=== PATIENT | male | born 1960 | race Two or more races ===

== ENCOUNTER 2024-12-17 16:03 | Inpatient (IN) | payer MEDICAID, OTHER ==
[~2024-12-17] VITALS: Ht 182.9 cm; Wt 91.8 kg
--- NOTE | 2024-12-17 16:29 | ED.PDOC ---
HPI Comments aaron: Abnormal labs HPI: Poor Historian. Past Medical History: Past Surgical History: REVIEW OF SYSTEMS: CONSTITUTIONAL: Denies acute: fever, diaphoresis, chills, generalized weakness. HEAD: Denies acute: headache, photophobia Eyes: Denies acute: Double vision, vision loss, eye pain, eye discharge. EARS: Denies acute: tinnitus, hearing loss, ear discharge, ear pain, THROAT: Denies acute: sore throat, swelling, difficulty swallowing , pain with swa llowing, change in voice. NECK: Denies acute: neck pain, neck swelling, stiff neck. HEART: Denies acute : palpitations, LUNGS: Denies acute: SOB, wheezing, cough, hemoptysis ABDOMEN: Denies acute: abdominal pain, Nausea, Vomiting, diarrhea, melena , hematemesis, hematochezia SKIN: Denies acute: rash, redness, lesions, itchiness. EXTREMITIES: Denies acute: calf pain, numbness, tingling, weakness, denies pain in extremity. Denies acute: Low back pain. Neuro: Denies acute: focal neurological deficit, motor or sensory focal neurological deficit, tremors, seizure like activity, confusion, dizziness, change in mental status, loss of bowel or bladder function, cauda equina like symptoms. : Denies acute: dysuria, hematuria, flank pain, increase in urinary frequency. PSYCH: Denies acute: hallucination, suicidal ideation, homicidal ideation. PHYSICAL EXAM: General: ----no----acute distress, awake and alert. Head: normocephalic, atraumatic. Neck: supple, trachea is midline, no swelling. Throat: Normal phonation. Eyes:, no erythema, no purulent discharge, no proptosis, no icterus. Heart: regular rate, regular rhythm, no significant murmur appreciated. Lungs: no apparent respiratory distress, Able to speak in full sentences. No wheezing, no rhonchi, no crackles. No stridors Clear to auscultation bilaterally. Abdomen: non tender to palpation, non distended, soft, no guarding, no rebound, + bowel sounds. Neuro: Awake, Alert, oriented to name, self, situation, follows commands GCS=15. Speech is normal. Skin: no petechia, no purpura, no cyanosis, non-pale, not jaundice. Lower extremities: --trace bilateral - Pitting edema no deformity, no focal swelling, no calf TTP. Makes eye contact. moves all four extremities. Face: no apparent facial droop. Ambulating in the ED independently. ED COURSE: Chief Complaint: Chest Pain Time Seen by MD: 16:08 Allergies: Coded Allergies: NO KNOWN ALLERGIES (Unverified , 12/17/24) Information Source: Patient, Spouse X-Ray, Labs, Meds, VS Vital Signs Date Time Temp Pulse Resp B/P (MAP) Pulse Ox O2 Delivery O2 Flow Rate FiO2 12/17/24 16:26 93 I personally scribed for LEA TIRADO DO ([email or web address]) on 12/17/24 at 16:31. Electronically submitted by Radha Lerma [email or web address]). LEA TIRADO DO December 17, 2024 16:29
[2024-12-17 16:50] LABS: Basophils # (auto) 0.1 10 ^3/uL (0-0.2); Basophils % (auto) 0.8 % (0.0-2.0); Eosinophils # (auto) 0.2 10 ^3/uL (0-0.8); Eosinophils % (auto) 2.7 % (0.0-7.0); Hematocrit 46.8 % (41.0-53.0); Hemoglobin 16.2 g/dL (13.5-17.5); Lymphocytes # (auto) 1.3 10 ^3/uL (0.4-5.4); Lymphocytes % (auto) 20.7 % (10.0-50.0); Mean Corpuscular Hemoglobin 32.3 pg (28.0-32.0); Mean Corpuscular Hgb Conc. 34.6 g/dL (32.0-36.0); Mean Corpuscular Volume 93.3 fL (80.0-100.0); Monocytes # (auto) 0.6 10 ^3/uL (0-1.3); Monocytes % (auto) 8.7 % (0.0-12.0); Neutrophils # (auto) 4.3 10 ^3/uL (1.6-8.6); Neutrophils % (auto) 67.1 % (37.0-80.0); Nucleated Red Blood Cells % 0.2 %; Platelet Count (auto) 170 10^3/uL (140-450); Red Blood Cells 5.01 10^6/uL (4.5-5.90); White Blood Cell 6.4 10^3/uL (4.4-10.8)
--- NOTE | 2024-12-17 16:58 | ED.PDOC ---
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 Patient states, he was seen at his PCP office x1week ago and was told to have abnormal labs. Patient reports, new onset of symptoms following his appointment of abdominal pain with associated N/V/D. Patient comments on, currently not taking any prescription medications d/t lack of insurance. Upon arrival to the ED, patient c/o additional symptoms of intermittent left sided chest pain. Patient denies fatigue, weakness, excessive thirst, dysuria, disorientation, palpitations, or shortness of breath. No other symptoms or modifying factors present at this time. Past Medical History: [place], HTN, DM, HLD Past Surgical History: CABG, TONSILLECTOMY REVIEW OF SYSTEMS: CONSTITUTIONAL: Denies acute: fever, diaphoresis, chills, generalized weakness. HEAD: Denies acute: headache, photophobia Eyes: Denies acute: Double vision, vision loss, eye pain, eye discharge. EARS: Denies acute: tinnitus, hearing loss, ear discharge, ear pain, THROAT: Denies acute: sore throat, swelling, difficulty swallowing , pain with swallowing, change in voice. NECK: Denies acute: neck pain, neck swelling, stiff neck. HEART: Denies acute : palpitations, LUNGS: Denies acute: SOB, wheezing, cough, hemoptysis ABDOMEN: Denies acute: abdominal pain, Nausea, Vomiting, diarrhea, melena , hematemesis, hematochezia SKIN: Denies acute: rash, redness, lesions, itchiness. EXTREMITIES: Denies acute: calf pain, numbness, tingling, weakness, denies pain in extremity. Denies acute: Low back pain. Neuro: Denies acute: focal neurological deficit, motor or sensory focal neurological deficit, tremors, seizure like activity, confusion, dizziness, change in mental status, loss of bowel or bladder function, cauda equina like symptoms. : Denies acute: dysuria, hematuria, flank pain, increase in urinary frequency. PSYCH: Denies acute: hallucination, suicidal ideation, homicidal ideation. PHYSICAL EXAM: General: ----no----acute distress, awake and alert. Head: normocephalic, atraumatic. Neck: supple, trachea is midline, no swelling. Throat: Normal phonation. Eyes:, no erythema, no purulent discharge, no proptosis, no icterus. Heart: regular rate, regular rhythm, no significant murmur appreciated. Lungs: no apparent respiratory distress, Able to speak in full sentences. No wheezing, no rhonchi, no crackles. No stridors Clear to auscultation bilaterally. Abdomen: non tender to palpation, non distended, soft, no guarding, no rebound, + bowel sounds. Neuro: Awake, Alert, oriented to name, self, situation, follows commands GCS=15. Speech is normal. Skin: no petechia, no purpura, no cyanosis, non-pale, not jaundice. Lower extremities: --trace bilateral - Pitting edema no deformity, no focal swelling, no calf TTP. Makes eye contact. moves all four extremities. Face: no apparent facial droop. Ambulating in the ED independently. ED COURSE: Chief Complaint: Chest Pain Time Seen by MD: 16:30 Reviewed Notes: Nurses Notes, Medications, Allergies Allergies: Coded Allergies: NO KNOWN ALLERGIES (Unverified , 12/17/24) Information Source: Patient Mode of Arrival: Ambulatory Severity: Moderate Timing: Days Duration: Intermittent Prehospital treatment: None Location: Chest (L) Radiation: Back Onset: At Rest Cardiac Risk Factors: Hyperlipidemia, HTN, Diabetes PE Risk Factors: None History of: [place] Modifying Factors: Nothing Associated Signs and Symptoms: None Was a procedure done? Was a procedure done?: No CP Differential Dx Differential Diagnosis: N/A Differential Diagnosis: Other (Ddx include but not limitied to gastritis, musculoskeletal pain, radiculopathy, atypical chest pain, dissection, aneurysm, ACS, unstable angina, hiatal hernia, GERD, anxiety, costochondritis, PE, pneumothroax, neoplasm, cardiac ischemia, drug abuse, anemia.) X-Ray, Labs, Meds, VS Vital Signs Date Time Temp Pulse Resp B/P (MAP) Pulse Ox O2 Delivery O2 Flow Rate FiO2 12/17/24 18:25 86 18 97 12/17/24 18:25 18 97 Room Air* 0 21 12/17/24 18:23 116/73 12/17/24 17:45 88 16 95 Room Air* 0 21 12/17/24 17:28 86 12/17/24 17:28 97.6 88 16 132/83 (99) 95 97.6 12/17/24 17:21 90 12/17/24 16:26 93 12/17/24 16:10 97.4 99 18 130/84 (99) 92 97.4 Lab Test 12/17/24 17:21 12/17/24 17:15 12/17/24 16:30 12/17/24 16:17 Range/Units POC Glucose 471 *H 70-106 mg/dl Troponin I High Sensitivity 50 58 *H </=54 ng/L White Blood Count 6.4 4.4-10.8 10^3/uL Red Blood Count 5.01 4.5-5.90 10^6/uL Hemoglobin 16.2 13.5-17.5 g/dL Hematocrit 46.8 41.0-53.0 % Mean Corpuscular Volume 93.3 80.0-100.0 fL Mean Corpuscular Hemoglobin 32.3 H 28.0-32.0 pg Mean Corpuscular Hemoglobin Concent 34.6 32.0-36.0 g/dL Red Cell Distribution Width 15.0 H 11.8-14.3 % Platelet Count 170 140-450 10^3/uL Mean Platelet Volume 8.5 6.9-10.8 fL Neutrophils (%) (Auto) 67.1 37.0-80.0 % Lymphocytes (%) (Auto) 20.7 10.0-50.0 % Monocytes (%) (Auto) 8.7 0.0-12.0 % Eosinophils (%) (Auto) 2.7 0.0-7.0 % Basophils (%) (Auto) 0.8 0.0-2.0 % Neutrophils # (Auto) 4.3 1.6-8.6 10 ^3/uL Lymphocytes # (Auto) 1.3 0.4-5.4 10 ^3/uL Monocytes # (Auto) 0.6 0-1.3 10 ^3/uL Eosinophils # (Auto) 0.2 0-0.8 10 ^3/uL Basophils # (Auto) 0.1 0-0.2 10 ^3/uL Nucleated Red Blood Cells 0.2 % Sodium Level 134 L 136-145 mmol/L Potassium Level 5.3 H 3.5-5.1 mmol/L Chloride Level 101 98-107 mmol/L Carbon Dioxide Level 24 20-31 mmol/L Anion Gap 9 5-15 Blood Urea Nitrogen 31 H 9-23 mg/dL Creatinine 1.66 H 0.700-1.30 mg/dL Glomerular Filtration Rate Calc 46 >90 mL/min BUN/Creatinine Ratio 18.7 10.0-20.0 Serum Glucose 436 *H 74-106 mg/dL Lactic Acid Level 1.6 0.4-2.0 mmol/L Calcium Level 9.4 8.7-10.4 mg/dL Magnesium Level 1.6 1.6-2.6 mg/dL Total Bilirubin 0.7 0.2-1.0 mg/dL Aspartate Amino Transferase (AST) 13 13-40 U/L Alanine Aminotransferase (ALT) 12 7-40 U/L Alkaline Phosphatase 86 46-116 U/L B-Type Natriuretic Peptide 547.20 0-100 pg/mL Total Protein 7.1 5.7-8.2 g/dL Albumin 4.2 3.2-4.8 g/dL Lipase 81 H 12-53 U/L Urine Color Light-yellow Yellow Urine Clarity Clear Clear Urine pH 6.5 5.0-9.0 Urine Specific [place] 1.022 1.001-1.035 Urine Protein 2+ H Negative Urine Ketones Negative Negative Urine Blood Negative Negative /uL Urine Nitrite Negative Negative Urine Bilirubin Negative Negative Urine Urobilinogen Normal Negative mg/dL Urine Leukocyte Esterase Negative Negative /uL Urine RBC <1 0 - 3 /hpf Urine Microscopic WBC < 1 0-3 /HPF Urine Squamous Epithelial Cells None seen <5 /hpf Urine Bacteria None seen None Seen /hpf Urine Glucose 4+ H Normal mg/dL Current Medications Medications (Trade) Dose Ordered Sig/Amber Route Start Time Stop Time Status Last Admin Aspirin (Ecotrin Enteric Coated Tablet) 325 mg ONCE ONCE PO 12/17/24 17:15 12/17/24 17:22 DC 12/17/24 17:34 Insulin Human Regular (InsuLIN R) 5 units ONCE ONCE IV 12/17/24 17:15 12/17/24 17:22 DC 12/17/24 17:35 Furosemide (Lasix Injection) 20 mg ONCE ONCE IV 12/17/24 18:15 12/17/24 18:18 DC 12/17/24 18:23 Albuterol (Ventolin Medneb) 2.5 mg ONCE ONCE NEB 12/17/24 18:15 12/17/24 18:18 DC 12/17/24 18:25 Zirconium Oxide (Lokelma) 10 gm ONCE ONCE PO 12/17/24 18:15 12/17/24 18:18 DC 12/17/24 18:24 [place] [address] Ph: [phone] DIAGNOSTIC IMAGING Diagnostic Imaging Report : [id number] Signed PATIENT: RICHELLE AARONNACCT: [id number] UNIT: [id number] : 1960 LOC: ER ROOM / BED: / AGE / SEX: 64 / M ADM STATUS: REG ER SERVICE 1621 ORDERING PHYSICIAN: LEA TIRADO DO PROCEDURE(s): CXRP - CHEST PORTABLE REASON: cp ORDER NUMBER(s): [id number], ACCESSION NUMBER(s): [id number] CHEST RADIOGRAPH Indication: cp Technique: Single frontal view of the chest was obtained Comparison: None FINDINGS: Lines and Tubes: Sternal wire sutures in place. Lungs: Airspace disease right lower lobe. Scarring or atelectasis left lower Pleura: No effusion. No pneumothorax. Cardiomediastinal contours: Unremarkable Bones: No acute osseous abnormality. IMPRESSION: 1. Airspace disease right base questionable fluid level consider CT for further evaluation. 2. Scarring or atelectasis left base. No prior studies for comparison. ATED BY: MARIIA GANNON Jr., DO DICTATED DATE/TIME: 12/17/241718 SIGNED BY: MARIIA GANNON Jr., SIGNED DATE/TIME: 12/17/241718 CC: PATIENT: JOHANA AARON JACCT: [id number] UNIT: [id number] : 1960 LOC: OVERFLOW ROOM / BED: [facility]-ERT / A AGE / SEX: 64 / M ADM STATUS: ADM IN SERVICE 181 ORDERING PHYSICIAN: LEA TIRADO DO PROCEDURE(s): CX2CT - CHEST WITHOUT CONTRAST REASON: abn cxr , cp ORDER NUMBER(s): [id number], ACCESSION NUMBER(s): [id number] Scarring or area of atelectasis in the right upper lung field Procedure: CT CHEST WITHOUT CONTRAST Reason for study/Clinical History: abn cxr , cp Comparison Study: None Exam Date: 12/17/2024 07:07 PM TECHNIQUE: Multidetector CT of the chest was performed from the lung apices to the upper abdomen without the use of intravenous contract. Axial, coronal and sagittal multiplanar reformats were performed. Radiation Dose Information: CT Dose: CTDI volume is 15.81 mGy. Dose-length product is 530.05 mGy*cm The dose indicators for CT are the volume Computed Tomography (CT) Dose Index (CTDIvol) and the Dose Length Product (DLP), and are measured in units of mGy and mGy-cm, respectively. These indicators are not patient dose, but values generated from the CT scanner acquisition factors. The report includes radiation exposure data for exposures received during this examination. FINDINGS: Lower neck: Normal thyroid. Lungs: No focal consolidation, pleural effusion or pneumothorax. Heart/Vascular Structures: Normal heart size. No pericardial effusion. Sternal wire sutures in place Lymph Nodes: No adenopathy Pleura: No pleural effusion or significant pneumothorax. Multiple areas on the left pleural thickening and calcifications. Areas of pleural thickening on the right without calcifications. Musculoskeletal: No acute osseous abnormality. Soft tissues: Normal. Upper abdomen: Limited portions of the upper abdomen are unremarkable. IMPRESSION: 1. Bilateral areas of pleural thickening with pleural calcification on the left. 2. Sternal wire sutures in place. Radiation optimization: All CT scans at this facility use at least one of these dose optimization techniques: automated exposure control mA and/or kV adjustment per patient size (includes targeted exams where dose is matched to cl inical indication) or iterative reconstruction. ATED BY: MARIIA GANNON Jr., DO DICTATED DATE/TIME: 12/17/241958 SIGNED BY: MARIIA GANNON Jr., SIGNED DATE/TIME: 12/17/241958 Time of 1ST Reevaluation: 17:00 Reevaluation 1ST: Unchanged Patient Education/Counseling: Diagnosis, Treatment Family Education/Counseling: No Family Present Comments Patient presented with the above HPI.---chest pain and abnormal labs---workup was initiated. patient was found with the above mentioned diagnosis. the following medications were ordered: please refer to order lists of meds and tests obtained by myself Dr. Tirado. Patient ED course and VS have been stabilized. Patient has been reassessed in the ED and remained in a stable condition. Pertinent incidental findings were discussed with the patient and/or family. Patient/family voices understanding and is agreeable with plan. Patient has been observed in the ED adequate length of time to insure improvement/stability. Escalation of care considered: Consideration of escalation to observation or admission Cardiology was consulted. No STEMI. Patient was ADMITTED to the medicine team for further evaluation and treatment of their presentation. All the reports of any imaging studies that were ordered by myself were reviewed by myself. Critical Care Note Critical Care Time?: Yes (35 min-critical care time only) Departure 1 Departure Time of Disposition: 17:10 Impression: Primary Impression: Chest pain Additional Impressions: Elevated troponin Hyperglycemia Abnormal CT scan Hyperkalemia Disposition: ADMITTED INPATIENT Admit to: Tele Condition: Guarded Additional Instructions: [place] [address] Ph: [phone] DIAGNOSTIC IMAGING Diagnostic Imaging Report : [id number] Signed PATIENT: JOHANA AARON ACCT: [id number] UNIT: [id number] : 1960 LOC: ER ROOM / BED: / AGE / SEX: 64 / M ADM STATUS: REG ER SERVICE 1621 ORDERING PHYSICIAN: LEA TIRADO DO PROCEDURE(s): CXRP - CHEST PORTABLE REASON: cp ORDER NUMBER(s): [id number], ACCESSION NUMBER(s): [id number] CHEST RADIOGRAPH Indication: cp Technique: Single frontal view of the chest was obtained Comparison: None FINDINGS: Lines and Tubes: Sternal wire sutures in place. Lungs: Airspace disease right lower lobe. Scarring or atelectasis left lower Pleura: No effusion. No pneumothorax. Cardiomediastinal contours: Unremarkable Bones: No acute osseous abnormality. IMPRESSION: 1. Airspace disease right base questionable fluid level consider CT for further evaluation. 2. Scarring or atelectasis left base. No prior studies for comparison. ATED BY: MARIIA GANNON Jr., DO DICTATED DATE/TIME: 12/17/241718 SIGNED BY: MARIIA GANNON Jr., SIGNED DATE/TIME: 12/17/241718 CC: Discharged With: Self Heart Score Heart Score: Heart Score Response (Comments) Value History Moderate Suspicious [address]-Deviation 2 Age 45-64 1 Risk Factors 1 or 2 risk factors 1 Troponin 1-2 x's Normal limit 1 Total 6 I personally scribed for LEA TIRADO DO ([email or web address]) on 12/17/24 at 16:58. Electronically submitted by Radha Lerma ([email or web address]). I personally scribed for LEA TIRADO DO ([email or web address]) on 12/17/24 at 17:24. Electronically submitted by Radha Lerma ([email or web address]). I personally scribed for LEA TIRADO DO ([email or web address]) on 12/17/24 at 20:27. Electronically submitted by Pablo Szymanski ([email or web address]). LEA TIRADO DO December 17, 2024 16:58
[2024-12-17 17:08] LABS: Alanine Aminotransferase 12 U/L (7-40); Albumin 4.2 g/dL (3.2-4.8); Alkaline Phosphatase 86 U/L (46-116); Anion Gap 9 (5-15); BUN/Creatinine Ratio 18.7 (10.0-20.0); Calcium 9.4 mg/dL (8.7-10.4); Carbon Dioxide 24 mmol/L (20-31); Total Protein 7.1 g/dL (5.7-8.2)
[2024-12-17 17:09] LABS: Aspartate Aminotransferase 13 U/L (13-40); Bilirubin, Total 0.7 mg/dL (0.2-1.0); Blood Urea Nitrogen 31 mg/dL (9-23); Chloride 101 mmol/L (98-107); Lipase 81 U/L (12-53); Magnesium 1.6 mg/dL (1.6-2.6); Potassium 5.3 mmol/L (3.5-5.1); Sodium 134 mmol/L (136-145)
[2024-12-17 17:10] LABS: Glucose 436 mg/dL (74-106)
--- NOTE | 2024-12-17 17:21 | DVH ---
CHEST RADIOGRAPH Indication: cp Technique: Single frontal view of the chest was obtained Comparison: None FINDINGS: Lines and Tubes: Sternal wire sutures in place. Lungs: Airspace disease right lower lobe. Scarring or atelectasis left lower Pleura: No effusion. No pneumothorax. Cardiomediastinal contours: Unremarkable Bones: No acute osseous abnormality. IMPRESSION: 1. Airspace disease right base questionable fluid level consider CT for further evaluation. 2. Scarring or atelectasis left base. No prior studies for comparison.
[2024-12-17] MEDS: ASPirin-EC 325mg tab PO ONE (17:34)
[2024-12-17 17:35] LABS: Urine Bacteria None Seen /hpf (None Seen)
[2024-12-17] MEDS: InsuLIN REG 1unit/0.01ml Soln (100units/ml) IV ONE (17:35)
[2024-12-17 17:45] VITALS: PULSE 88; RESP 16; O2SAT 95
[2024-12-17 18:08] LABS: Urine Blood Negative /uL (Negative); Urine Clarity Clear (Clear); Urine Color Light-Yellow (Yellow); Urine Protein, UAD 2+ (Negative); Urine Specific Gravity 1.022 (1.001-1.035); Urine Squamous Epithelial Cell None Seen /hpf (<5); Urine Urobilinogen Normal (Negative); Urine WBC < 1 /HPF (0-3); Urine pH 6.5 (5.0-9.0)
[2024-12-17] MEDS: FUROSEMIDE 20 MG/2 ML VIAL IV ONE (18:23)
[2024-12-17] MEDS: SODIUM ZIRCONIUM CYCL 10 GM PAK PO ONE (18:24)
[2024-12-17 18:25] VITALS: PULSE 86; RESP 18; O2SAT 97
[2024-12-17] MEDS: ALBUTEROL SULF 2.5 MG/0.5ML(0.5%) NEB SOLN NEB ONE (18:25)
--- NOTE | 2024-12-17 18:59 | ECG ---
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
[2024-12-17] MEDS ORDERED: DEXTROSE (50%) 50ML SYRG IV PRN (19:00)
[2024-12-17] MEDS ORDERED: ALBUTEROL SULF 2.5 MG/0.5ML(0.5%) NEB SOLN NEB PRN (19:00)
[2024-12-17] MEDS ORDERED: NITROGLYCERIN 0.4 MG SL TAB SL PRN (19:00)
[2024-12-17] MEDS ORDERED: MORPHINE SULFATE INJ 2 MG/ml SYRG IV PRN (19:00)
[2024-12-17] MEDS ORDERED: TEMAZEPAM 15 MG CAP PO PRN (19:00)
--- NOTE | 2024-12-17 19:00 | ECG ---
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
[2024-12-17 19:30] VITALS: PULSE 92; RESP 18; O2SAT 98
[2024-12-17] MEDS: ACCU-CHEK COMFORT CURVE STRIP VI SCH (20:00)
--- NOTE | 2024-12-17 20:01 | DVH ---
Scarring or area of atelectasis in the right upper lung field Procedure: CT CHEST WITHOUT CONTRAST Reason for study/Clinical History: abn cxr , cp Comparison Study: None Exam Date: 12/17/2024 07:07 PM TECHNIQUE: Multidetector CT of the chest was performed from the lung apices to the upper abdomen with out the use of intravenous contract. Axial, coronal and sagittal multiplanar reformats were performed . Radiation Dose Information: CT Dose: CTDI volume is 15.81 mGy. Dose-length product is 530.05 mGy*cm The dose indicators for CT are the volume Computed Tomography (CT) Dose Index (CTDIvol) and the Dose Length Product (DLP), and are measured in units of mGy and mGy-cm, respectively. These indicators are not patient dose, but values generated from the CT scanner acquisition factors. The report includes radiation exposure data for exposures received during this examination. FINDINGS: Lower neck: Normal thyroid. Lungs: No focal consolidation, pleural effusion or pneumothorax. Heart/Vascular Structures: Normal heart size. No pericardial effusion. Sternal wire sutures in place Lymph Nodes: No adenopathy Pleura: No pleural effusion or significant pneumothorax. Multiple areas on the left pleural thickenin g and calcifications. Areas of pleural thickening on the right without calcifications. Musculoskeletal: No acute osseous abnormality. Soft tissues: Normal. Upper abdomen: Limited portions of the upper abdomen are unremarkable. IMPRESSION: 1. Bilateral areas of pleural thickening with pleural calcification on the left. 2. Sternal wire sutures in place. Radiation optimization: All CT scans at this facility use at least one of these dose optimization sweetie hniques: automated exposure control mA and/or kV adjustment per patient size (includes targeted exam s where dose is matched to clinical indication) or iterative reconstruction.
[2024-12-17] MEDS: InsuLIN REG 1unit/0.01ml Soln (100units/ml) SC SCH (20:32)
[2024-12-17] MEDS: ATORVASTATIN 20 MG TAB PO SCH (21:42)
--- NOTE | 2024-12-17 22:56 | DVHHP2 ---
History of Present Illness Reason for Visit: Chest pain History of Present Illness 64-year-old male presents for evaluation of chest pain. The patient was seen by his primary care provider today. Patient reports not taking any of his medications for the past six months due to lack of insurance. Today while at the PCP office patient develop some left-sided chest pain which he states has been ongoing for the past couple of months. Patient was advised to present to the emergency department for further evaluation. Currently denies chest pain or shortness for breath. Past Medical History Dyslipidemia, diabetes mellitus, hypertension, mi Past Surgical History Tonsillectomy, CABG Family History Noncontributory Smoke: No ALCOHOL: none Drugs: None Lives: with Family Review of Systems Review of Systems Review of systems are currently negative otherwise addressed in HPI. Allergies: Coded Allergies: NO KNOWN ALLERGIES (Unverified , 12/17/24) Medications Current Medications Medications Dose Ordered Sig/Amber Route Start Time Stop Time Status Last Admin Dose Admin Aspirin 81 mg DAILY PO 12/18/24 10:00 Atorvastatin Calcium 10 mg HS PO 12/17/24 22:00 12/17/24 21:42 10 MG Furosemide 40 mg DAILY PO 12/18/24 10:00 Albuterol 2.5 mg Q6HPRN PRN NEB 12/17/24 19:00 Diagnostic Test (Pha) 1 strip IQ4HR 12/17/24 20:00 12/17/24 20:00 1 STRIP Insulin Human Regular IQ4HR SC 12/17/24 20:00 12/17/24 20:32 10 UNITS Dextrose 50 ml UD PRN IV 12/17/24 19:00 Temazepam 15 mg QHSP PRN PO 12/17/24 19:00 Ondansetron HCl 4 mg Q4HP PRN IV 12/17/24 19:00 Acetaminophen 650 mg Q6HP PRN PO 12/17/24 19:00 Nitroglycerin 0.4 mg Q5MINP PRN SL 12/17/24 19:00 Morphine Sulfate 2 mg Q30M PRN IV 12/17/24 19:00 Exam Vital Signs Vital Signs Date Time Temp Pulse Resp B/P (MAP) Pulse Ox O2 Delivery O2 Flow Rate FiO2 12/17/24 22:25 89 20 131/71 (91) 12/17/24 20:00 97 12/17/24 19:30 Nasal Cannula* 2 28 12/17/24 19:30 98.1 98.1 Exam Gen: 64-year-old male in no apparent distress. Skin: Warm, dry, normal color and texture, no rash. HEENT: Normocephalic atraumatic, mucous membranes moist and pink. Neck: Cervical and supraclavicular nodes normal without enlargement, trachea is midline, thyroid gland is normal without masses. Pulmonary: Clear to auscultation and percussion bilaterally. Cardiac: Regular rate and rhythm. No murmur Abdomen: Soft, nontender, nondistended, bowel sounds present all 4 quadrants, no guarding, no rigidity, no organomegaly. Extremities: No cyanosis, clubbing, no edema Neuro: Cranial nerves II through XII grossly intact, normal affect and speech, no focal motor deficits. Labs/Xrays ORDERING PHYSICIAN: LEA TIRADO DO PROCEDURE(s): CX2CT - CHEST WITHOUT CONTRAST REASON: abn cxr , cp ORDER NUMBER(s): [id number], ACCESSION NUMBER(s): [id number] Scarring or area of atelectasis in the right upper lung field Procedure: CT CHEST WITHOUT CONTRAST Reason for study/Clinical History: abn cxr , cp Comparison Study: None Exam Date: 12/17/2024 07:07 PM TECHNIQUE: Multidetector CT of the chest was performed from the lung apices to the upper abdomen without the use of intravenous contract. Axial, coronal and sagittal multiplanar reformats were performed. Radiation Dose Information: CT Dose: CTDI volume is 15.81 mGy. Dose-length product is 530.05 mGy*cm The dose indicators for CT are the volume Computed Tomography (CT) Dose Index (CTDIvol) and the Dose Length Product (DLP), and are measured in units of mGy and mGy-cm, respectively. These indicators are not patient dose, but values generated from the CT scanner acquisition factors. The report includes radiation exposure data for exposures received during this examination. FINDINGS: Lower neck: Normal thyroid. Lungs: No focal consolidation, pleural effusion or pneumothorax. Heart/Vascular Structures: Normal heart size. No pericardial effusion. Sternal wire sutures in place Lymph Nodes: No adenopathy Pleura: No pleural effusion or significant pneumothorax. Multiple areas on the left pleural thickening and calcifications. Areas of pleural thickening on the right without calcifications. Musculoskeletal: No acute osseous abnormality. Soft tissues: Normal. Upper abdomen: Limited portions of the upper abdomen are unremarkable. IMPRESSION: 1. Bilateral areas of pleural thickening with pleural calcification on the left. 2. Sternal wire sutures in place. Radiation optimization: All CT scans at this facility use at least one of these dose optimization techniques: automated exposure control mA and/or kV adjustment per patient size (includes targeted exams where dose is matched to clinical indication) or iterative reconstruction. Labs Test 12/17/24 22:16 12/17/24 20:14 12/17/24 19:32 12/17/24 16:30 Range/Units POC Glucose 437 *H 70-106 mg/dl Troponin I High Sensitivity 44 </=54 ng/L White Blood Count 6.4 4.4-10.8 10^3/uL Red Blood Count 5.01 4.5-5.90 10^6/uL Hemoglobin 16.2 13.5-17.5 g/dL Hematocrit 46.8 41.0-53.0 % Mean Corpuscular Volume 93.3 80.0-100.0 fL Mean Corpuscular Hemoglobin 32.3 H 28.0-32.0 pg Mean Corpuscular Hemoglobin Concent 34.6 32.0-36.0 g/dL Red Cell Distribution Width 15.0 H 11.8-14.3 % Platelet Count 170 140-450 10^3/uL Mean Platelet Volume 8.5 6.9-10.8 fL Neutrophils (%) (Auto) 67.1 37.0-80.0 % Lymphocytes (%) (Auto) 20.7 10.0-50.0 % Monocytes (%) (Auto) 8.7 0.0-12.0 % Eosinophils (%) (Auto) 2.7 0.0-7.0 % Basophils (%) (Auto) 0.8 0.0-2.0 % Neutrophils # (Auto) 4.3 1.6-8.6 10 ^3/uL Lymphocytes # (Auto) 1.3 0.4-5.4 10 ^3/uL Monocytes # (Auto) 0.6 0-1.3 10 ^3/uL Eosinophils # (Auto) 0.2 0-0.8 10 ^3/uL Basophils # (Auto) 0.1 0-0.2 10 ^3/uL Nucleated Red Blood Cells 0.2 % Sodium Level 134 L 136-145 mmol/L Chloride Level 101 98-107 mmol/L Carbon Dioxide Level 24 20-31 mmol/L Anion Gap 9 5-15 Blood Urea Nitrogen 31 H 9-23 mg/dL Creatinine 1.66 H 0.700-1.30 mg/dL Glomerular Filtration Rate Calc 46 >90 mL/min BUN/Creatinine Ratio 18.7 10.0-20.0 Serum Glucose 436 *H 74-106 mg/dL Lactic Acid Level 1.6 0.4-2.0 mmol/L Calcium Level 9.4 8.7-10.4 mg/dL Magnesium Level 1.6 1.6-2.6 mg/dL Total Bilirubin 0.7 0.2-1.0 mg/dL Aspartate Amino Transferase (AST) 13 13-40 U/L Alanine Aminotransferase (ALT) 12 7-40 U/L Alkaline Phosphatase 86 46-116 U/L B-Type Natriuretic Peptide 547.20 0-100 pg/mL Total Protein 7.1 5.7-8.2 g/dL Albumin 4.2 3.2-4.8 g/dL Lipase 81 H 12-53 U/L Test 12/17/24 16:17 Range/Units Urine Color Light-yellow Yellow Urine Clarity Clear Clear Urine pH 6.5 5.0-9.0 Urine Specific [place] 1.022 1.001-1.035 Urine Protein 2+ H Negative Urine Ketones Negative Negative Urine Blood Negative Negative /uL Urine Nitrite Negative Negative Urine Bilirubin Negative Negative Urine Urobilinogen Normal Negative mg/dL Urine Leukocyte Esterase Negative Negative /uL Urine RBC <1 0 - 3 /hpf Urine Microscopic WBC < 1 0-3 /HPF Urine Squamous Epithelial Cells None seen <5 /hpf Urine Bacteria None seen None Seen /hpf Urine Glucose 4+ H Normal mg/dL Assessment/Plan Assessment/Plan Assessment Chest pain rule out ACS Elevated troponin downtrending Uncontrolled diabetes mellitus Acute kidney injury Hypertension Hypokalemia Plan Admit the patient to telemetry to the hospitalist Cardiology consultation Echocardiogram pending Resume home medications Continue treatment per orders. Plan discussed with: Patient My Orders Orders - TODD DILLARD AGACNP Procedure Category Date Status Time Aspirin Tablet PHA 12/18/24 In Process 10:00 Atorvastatin (Lipitor) PHA 12/17/24 In Process 22:00 Furosemide Tablet PHA 12/18/24 In Process (Lasix Tablet) 10:00 Albuterol Medneb PHA 12/17/24 In Process (Ventolin Medneb) 19:00 Basic Metabolic Panel LAB 12/18/24 Verified 04:00 Glucose Blood PHA 12/17/24 In Process (Accu-Chek Comfort 20:00 Insulin R (Human) PHA 12/17/24 In Process (Insulin R) 20:00 Dextrose 50% Syringe PHA 12/17/24 In Process 19:00 Admit ADMIT 12/17/24 Transmitted 18:58 Temazepam (Restoril) PHA 12/17/24 In Process 19:00 Ondansetron Hcl PHA 12/17/24 In Process (Zofran) 19:00 Cardiac DIET 12/18/24 Transmitted Diet-2gna,Lofat,Lochol Breakfast Echo 2d Mode Cardiac US 12/17/24 Logged DOP 18:58 Condition: Fair CRYSTAL 12/17/24 In Process 18:58 Acetaminophen Tablet PHA 12/17/24 In Process (Tylenol Tablet) 19:00 Bedrest With Bathroom CRYSTAL 12/17/24 In Process Privileg 18:58 Nitroglycerin PHA 12/17/24 In Process Sublingual (Ntrostat 19:00 Morphine Sulfate PHA 12/17/24 In Process Injection 19:00 Stat Ekg For Chest CRYSTAL 12/17/24 In Process Pain 18:58 Notify Of Changes CRYSTAL 12/17/24 In Process From Base 18:58 [employer] For CRYSTAL 12/17/24 In Process 24 Hours 18:58 Emergency Dysrhythmia CRYSTAL 12/17/24 In Process Protocol 18:58 Rhythm Strips Once CRYSTAL 12/17/24 In Process Every Shift 18:58 Oxygen By Nasal RT 12/17/24 Transmitted Cannula 18:58 Thyroid Stimulating LAB 12/17/24 Logged Hormone 22:48 Hemoglobin A1c LAB 12/17/24 Logged 22:48 Lipid Panel LAB 12/17/24 Logged 22:48 Date of Service: December 17, 2024 Billing Provider: TODD DILLARD Common Visit Codes: [id number] INP/OBS CARE (HIGH) TODD DILLARD December 17, 2024 22:56
[2024-12-17 23:20] LABS: Cholesterol 289 mg/dL (< 200); HDL Cholesterol 61 mg/dL (40-59); LDL Cholesterol 208 mg/dL (< 100); Triglycerides 277 mg/dL (< 150)
[2024-12-18] VITALS (8 sets, daily range): BP systolic 86–134; BP diastolic 58–83; PULSE 78–91; RESP 11–18; TEMP 95.2–98; O2SAT 95–98
--- NOTE | 2024-12-18 05:40 | ECG ---
[facility] Test Date: 2024-12-17 Test Time: 19:22:42 Pat Name: JOHANA OBRIEN Department: ED Room: 0250T Gender: M [employer]: DEMETRIUS : 1960 Requested By: LEA TIRADO Order Number: [id number] Reading MD: Elan Ferrer Measurements Intervals [place] Rate: 93 P: -17 AL: 167 QRS: 115 QRSD: 140 T: 121 QT: 393 QTc: 489 Interpretive Statements Sinus rhythm Right bundle branch block Repol abnrm suggests ischemia, lateral leads Electronically Signed On 12-21-2024 22:08:22 PDT by Elan Ferrer Please click the below link to view image of tracing.
[2024-12-18 06:32] LABS: Calcium 9.3 mg/dL (8.7-10.4); Chloride 102 mmol/L (98-107); Sodium 138 mmol/L (136-145)
[2024-12-18 06:33] LABS: Anion Gap 11 (5-15); Carbon Dioxide 25 mmol/L (20-31)
[2024-12-18 06:38] LABS: BUN/Creatinine Ratio 19.1 (10.0-20.0)
[2024-12-18 06:49] LABS: Blood Urea Nitrogen 29 mg/dL (9-23); Glucose 217 mg/dL (74-106)
[2024-12-18] MEDS: hydrALAZINE HCL 20 MG/ML VL IV PRN (08:52)
[2024-12-18] MEDS: ACETAMINOPHEN 325 MG TAB PO PRN (10:22)
[2024-12-18] MEDS: FUROSEMIDE 40 MG TAB PO SCH (10:23)
[2024-12-18] MEDS: LISINOPRIL 5 MG TAB PO SCH (10:24)
[2024-12-18] MEDS: hydroCHLOROthiazide 25 MG TAB PO SCH (10:24)
[2024-12-18] MEDS: ASPirin 81 mg TAB PO SCH (10:24)
--- NOTE | 2024-12-18 11:19 | DVHCONRES ---
Date Seen: December 18, 2024 Resident Creating Document: CEDRICK HUBER RESIDENT Referring Physician DR TIRADO Reason for Consultation Chest pain History of Present Illness 64-year-old male with past medical history of hypertension, hyperlipidemia, diabetes mellitus type 2, [place] status post CABG in 2012 presented in the ED as he had EKG done in the primary care physician's office on PCP referred him to ER. He mentioned that he has been having left-sided intermittent chest pain on and off for last one year. He also complaint of nausea vomiting and diarrhea for few months. Patient denied shortness of breath on rest but gets shortness of breath on walking 20 ft. Mentioned that he had complaints of swelling in bilateral lower leg for last one year. Described his chest pain as left-sided, pressure-like, sometimes radiating to the back, mainly affected by rest and activity, slightly improved sitting up. patient does not take any medication to get relief of chest pain. He denied any complaints of cough, palpitation, orthopnea, PND. Cardiology was consulted for chest pain. Patient is not mentioning of any active symptoms. Mentioned he gets stress test every year and last stress test was one and a half years ago which was with normal limits according to him. Patient mentioned he has not been taking his medications for last one year because of insurance issues but has been aspirin 81 mg because it is over the counter. Past Medical History described in the HPI Past Surgical History described in the HPI Family History does not remember Social History Quit smoking in 2012, was smoking for 40 years Current alcohol intake, 4-6 shots of whiskey 3-4 days in a week Denied marijuana or any other drug intake Allergies: Coded Allergies: NO KNOWN ALLERGIES (Unverified , 12/17/24) Current Medications Current Medications Medications (Trade) Dose Ordered Sig/Amber Route PRN Reason Start Time Stop Time Status Last Admin Aspirin 81 mg DAILY PO 12/18/24 10:00 12/18/24 10:24 Atorvastatin Calcium (Lipitor) 10 mg HS PO 12/17/24 22:00 12/17/24 21:42 Furosemide (Lasix Tablet) 40 mg DAILY PO 12/18/24 10:00 12/18/24 10:23 Albuterol (Ventolin Medneb) 2.5 mg Q6HPRN PRN NEB SHORTNESS OF BREATH 12/17/24 19:00 Diagnostic Test (Pha) (Accu-Chek Comfort Curve T) 1 strip IQ4HR 12/17/24 20:00 12/18/24 08:51 Insulin Human Regular (InsuLIN R) IQ4HR SC 12/17/24 20:00 12/18/24 08:50 Dextrose 50 ml UD PRN IV Blood Sugar LESS THAN 60 12/17/24 19:00 Temazepam (Restoril) 15 mg QHSP PRN PO FOR INSOMNIA 12/17/24 19:00 Ondansetron HCl (Zofran) 4 mg Q4HP PRN IV NAUSEA / VOMITING 12/17/24 19:00 Acetaminophen (Tylenol Tablet) 650 mg Q6HP PRN PO PAIN SCALE 1-3 OR TEMP>100.4 12/17/24 19:00 12/18/24 10:22 Nitroglycerin (Ntrostat Sublingual) 0.4 mg Q5MINP PRN SL FOR CHEST PAIN 12/17/24 19:00 Morphine Sulfate 2 mg Q30M PRN IV FOR CHEST PAIN 12/17/24 19:00 Lisinopril (Zestril Tablet) 10 mg DAILY PO 12/18/24 10:00 12/18/24 10:24 Hydrochlorothiazide (hydroCHLOROthiazide TABLET) 12.5 mg DAILY PO 12/18/24 10:00 12/18/24 10:24 Hydralazine HCl (Apresoline Injection) 10 mg Q6HP PRN IV SBP>150 12/18/24 08:30 12/18/24 08:52 Vital Signs Vital Signs Date Time Temp Pulse Resp B/P (MAP) Pulse Ox O2 Delivery O2 Flow Rate FiO2 12/18/24 10:24 133/75 12/18/24 07:35 96 Room Air 0.0 12/18/24 07:35 21 12/18/24 06:00 88 13 12/17/24 19:30 98.1 98.1 Labs/Diagnostic Data Labs Test 12/18/24 08:41 12/18/24 05:20 12/17/24 19:32 12/17/24 16:30 Range/Units POC Glucose 207 H 70-106 mg/dl Sodium Level 138 136-145 mmol/L Potassium Level 4.0 3.5-5.1 mmol/L Chloride Level 102 98-107 mmol/L Carbon Dioxide Level 25 20-31 mmol/L Anion Gap 11 5-15 Blood Urea Nitrogen 29 H 9-23 mg/dL Creatinine 1.52 H 0.700-1.30 mg/dL Glomerular Filtration Rate Calc 51 >90 mL/min BUN/Creatinine Ratio 19.1 10.0-20.0 Serum Glucose 217 #H 74-106 mg/dL Calcium Level 9.3 8.7-10.4 mg/dL Troponin I High Sensitivity 44 </=54 ng/L White Blood Count 6.4 4.4-10.8 10^3/uL Red Blood Count 5.01 4.5-5.90 10^6/uL Hemoglobin 16.2 13.5-17.5 g/dL Hematocrit 46.8 41.0-53.0 % Mean Corpuscular Volume 93.3 80.0-100.0 fL Mean Corpuscular Hemoglobin 32.3 H 28.0-32.0 pg Mean Corpuscular Hemoglobin Concent 34.6 32.0-36.0 g/dL Red Cell Distribution Width 15.0 H 11.8-14.3 % Platelet Count 170 140-450 10^3/uL Mean Platelet Volume 8.5 6.9-10.8 fL Neutrophils (%) (Auto) 67.1 37.0-80.0 % Lymphocytes (%) (Auto) 20.7 10.0-50.0 % Monocytes (%) (Auto) 8.7 0.0-12.0 % Eosinophils (%) (Auto) 2.7 0.0-7.0 % Basophils (%) (Auto) 0.8 0.0-2.0 % Neutrophils # (Auto) 4.3 1.6-8.6 10 ^3/uL Lymphocytes # (Auto) 1.3 0.4-5.4 10 ^3/uL Monocytes # (Auto) 0.6 0-1.3 10 ^3/uL Eosinophils # (Auto) 0.2 0-0.8 10 ^3/uL Basophils # (Auto) 0.1 0-0.2 10 ^3/uL Nucleated Red Blood Cells 0.2 % Hemoglobin A1c > 14.0 H <5.7 % A1C Lactic Acid Level 1.6 0.4-2.0 mmol/L Magnesium Level 1.6 1.6-2.6 mg/dL Total Bilirubin 0.7 0.2-1.0 mg/dL Aspartate Amino Transferase (AST) 13 13-40 U/L Alanine Aminotransferase (ALT) 12 7-40 U/L Alkaline Phosphatase 86 46-116 U/L B-Type Natriuretic Peptide 547.20 0-100 pg/mL Total Protein 7.1 5.7-8.2 g/dL Albumin 4.2 3.2-4.8 g/dL Triglycerides Level 277 H < 150 mg/dL Cholesterol Level 289 H < 200 mg/dL LDL Cholesterol 208 H < 100 mg/dL HDL Cholesterol 61 H 40-59 mg/dL Lipase 81 H 12-53 U/L Thyroid Stimulating Hormone (TSH) 2.86 0.55-4.78 uIU/mL Test 12/17/24 16:17 Range/Units Urine Color Light-yellow Yellow Urine Clarity Clear Clear Urine pH 6.5 5.0-9.0 Urine Specific [place] 1.022 1.001-1.035 Urine Protein 2+ H Negative Urine Ketones Negative Negative Urine Blood Negative Negative /uL Urine Nitrite Negative Negative Urine Bilirubin Negative Negative Urine Urobilinogen Normal Negative mg/dL Urine Leukocyte Esterase Negative Negative /uL Urine RBC <1 0 - 3 /hpf Urine Microscopic WBC < 1 0-3 /HPF Urine Squamous Epithelial Cells None seen <5 /hpf Urine Bacteria None seen None Seen /hpf Urine Glucose 4+ H Normal mg/dL Plan/Recommendation Assessment and Plan # chest pain, cardiac type, rule out ACS -EKG shows right bundle-branch block -troponins 58, 50, 44 #Elevated trops, likely NSTEMI II due to CHF exacerbation -downtrending #? Acute on ? Chronic heart failure -elevated BNP, 47.20 # history of [place] status post CABG -on aspirin and statins #Hypertension # diabetes mellitus # Hyperlipidemia Plan Continue aspirin 81 mg and atorvastatin Echocardiogram, awaiting results Continue antihypertensive, thiazide, lisinopril Considering patient's high risk factors, we will schedule the patient for history and Cardiolite stress test, if stress test comes positive, we will schedule the patient for left heart catheterization Case discussion with Dr. Ferrer Plan discussed with: CEDRICK Tang RESIDENT December 18, 2024 11:19
--- NOTE | 2024-12-18 11:43 | DVHPN2 ---
Subjective Patient states intermittent substernal chest pressure, rated a 4/10. Also reports having periods of dyspnea, nausea. Reviewed: Care Plan, H&P, Labs Changes from previous H/P or p: No Changes General: Per HPI Objective Vitals Vital Signs Date Time Temp Pulse Resp B/P (MAP) Pulse Ox O2 Delivery O2 Flow Rate FiO2 12/18/24 11:27 97.7 91 18 134/82 (99) 97 97.7 12/18/24 07:35 Room Air 0.0 12/18/24 07:35 21 General Appearance: Alert, Oriented X3, Cooperative, No acute distress HEENT: Atraumatic, PERRLA Lungs: Clear to auscultation, Normal air movement Cardiovascular: Regular rate, Normal S1, Normal S2 Skin: Dry, Intact Psych/Mental Status: Mental status NL, Mood NL Medications Current Medications Medications Dose Ordered Sig/Amber Route Start Time Stop Time Status Last Admin Dose Admin Aspirin 81 mg DAILY PO 12/18/24 10:00 12/18/24 10:24 81 MG Albuterol 2.5 mg Q6HPRN PRN NEB 12/17/24 19:00 Diagnostic Test (Pha) 1 strip IQ4HR 12/17/24 20:00 12/18/24 08:51 1 STRIP Insulin Human Regular IQ4HR SC 12/17/24 20:00 12/18/24 08:50 4 UNITS Dextrose 50 ml UD PRN IV 12/17/24 19:00 Temazepam 15 mg QHSP PRN PO 12/17/24 19:00 Ondansetron HCl 4 mg Q4HP PRN IV 12/17/24 19:00 Acetaminophen 650 mg Q6HP PRN PO 12/17/24 19:00 12/18/24 10:22 650 MG Nitroglycerin 0.4 mg Q5MINP PRN SL 12/17/24 19:00 Morphine Sulfate 2 mg Q30M PRN IV 12/17/24 19:00 Hydrochlorothiazide 12.5 mg DAILY PO 12/18/24 10:00 12/18/24 10:24 12.5 MG Hydralazine HCl 10 mg Q6HP PRN IV 12/18/24 08:30 12/18/24 08:52 10 MG Atorvastatin Calcium 40 mg HS PO 12/18/24 22:00 UNV Metoprolol Succinate 25 mg DAILY PO 12/18/24 11:45 UNV Laboratory Results Laboratory Tests 12/17/24 16:30 12/18/24 05:20 Chemistry Test 12/17/24 16:30 12/18/24 05:20 Albumin 4.2 g/dL (3.2-4.8) Calcium Level 9.4 mg/dL (8.7-10.4) 9.3 mg/dL (8.7-10.4) Magnesium Level 1.6 mg/dL (1.6-2.6) Total Protein 7.1 g/dL (5.7-8.2) Lipid panel Test 12/17/24 16:30 Cholesterol Level 289 mg/dL (< 200) H HDL Cholesterol 61 mg/dL (40-59) H Lipase 81 U/L (12-53) H Triglycerides Level 277 mg/dL (< 150) H Cardiac Markers Test 12/17/24 16:30 B-Type Natriuretic Peptide 547.20 pg/mL (0-100) LFT Test 12/17/24 16:30 Alanine Aminotransferase (ALT) 12 U/L (7-40) Alkaline Phosphatase 86 U/L (46-116) Aspartate Amino Transferase (AST) 13 U/L (13-40) Total Bilirubin 0.7 mg/dL (0.2-1.0) HgA1c, TSH Test 12/17/24 16:30 Hemoglobin A1c > 14.0 % A1C (<5.7) H Thyroid Stimulating Hormone (TSH) 2.86 uIU/mL (0.55-4.78) Urinalysis Test 12/17/24 16:17 Urine Color Light-yellow (Yellow) Urine Clarity Clear (Clear) Urine pH 6.5 (5.0-9.0) Urine Specific [place] 1.022 (1.001-1.035) Urine Protein 2+ (Negative) H Urine Ketones Negative (Negative) Urine Blood Negative /uL (Negative) Urine Nitrite Negative (Negative) Urine Bilirubin Negative (Negative) Urine Urobilinogen Normal mg/dL (Negative) Urine Leukocyte Esterase Negative /uL (Negative) Urine RBC <1 /hpf (0 - 3) Urine Microscopic WBC < 1 /HPF (0-3) Urine Squamous Epithelial Cells None seen /hpf (<5) Urine Bacteria None seen /hpf (None Seen) Urine Glucose 4+ mg/dL (Normal) H Labs and/or images reviewed: Labs reviewed by me, Image(s) reviewed by me Assessment/Plan Assessment/Plan Impression: -hypertensive crisis -history of CAD, rule out ACS -diabetes mellitus -dyslipidemia -alcoholism -medication noncompliance -hyperkalemia -probable CKD stage IIIA Plan: -long discussion made with the patient regarding his medical history. He has been off medications for the past six months for diabetes, high blood pressure, dyslipidemia. He reports having an EKG done yearly for his previous jobs. Reports having CABG performed in 2012, with no further ischemia workup since. Reports having some chest pain, cough, nausea. -stop JIA inhibitor given hyperkalemia -start Toprol-XL 25 mg p.o. daily -echocardiogram and cardiac stress test pending. -cardiology consultation: Discussed case -increase atorvastatin 40 mg p.o. q.h.s. -regular insulin sliding scale -hold diuretics given clear CT scan and probable hyperosmolar diuresis from uncontrolled blood sugars Total time spent with patient discussing and formulating plan of care: 35 minutes. This medical document was created using an electronic medical record system with [employer] dictation system. Although this document has been carefully reviewed, there may still be some phonetic and typographical errors. These areas are purely typographical due to imperfections of the software programs, and do not reflect any compromise in the patient's medical care. Plan discussed with: Patient, Other (RN) My Orders Orders - SHAKEEL POWELL NP Procedure Category Date Status Time Atorvastatin (Lipitor) PHA 12/18/24 Transmitted 22:00 Metoprolol Xl PHA 12/18/24 Transmitted Succinate (Toprol Xl) 11:45 Communication Order ORDERS 12/18/24 Transmitted 11:34 Date of Service: December 18, 2024 Billing Provider: SHAKEEL POWELL NP Common Visit Codes: [id number] INP/OBS CARE(HIGH) SHAKEEL POWELL NP December 18, 2024 11:43
[2024-12-18] MEDS: METOPROLOL SUCCINATE XL 50 MG TAB PO SCH (12:54)
[2024-12-18] MEDS: ATORVASTATIN 20 MG TAB PO SCH (21:23)
[2024-12-19] VITALS (11 sets, daily range): BP systolic 80–139; BP diastolic 51–96; PULSE 8–89; RESP 17–19; TEMP 97–98.9; O2SAT 93–97
[2024-12-19] MEDS: MIDODRINE HCL 10 MG TAB PO SCH (06:00)
[2024-12-19] MEDS: REGADENOSON 0.4 MG/5 ML SYRG IV ONE ×2 (10:08)
[2024-12-19] MEDS: FOLIC ACID 1 MG TAB PO SCH (11:10)
[2024-12-19] MEDS: THIAMINE HCL 100 MG TAB PO SCH (11:10)
--- NOTE | 2024-12-19 14:14 | DVHPN2 ---
Subjective Denies any chest pain today Reviewed: Care Plan, H&P, Labs Changes from previous H/P or p: No Changes General: Per HPI Objective Vitals Vital Signs Date Time Temp Pulse Resp B/P (MAP) Pulse Ox O2 Delivery O2 Flow Rate FiO2 12/19/24 13:00 98.0 88 17 98/71 (80) 95 98.0 12/19/24 08:00 Room Air* 0 21 Intake/Output Intake and Output 12/19/24 07:00 Intake Total 260 ml Balance 260 ml Intake Oral 260 ml # Voids 4 General Appearance: Alert, Oriented X3, Cooperative, No acute distress HEENT: Atraumatic, PERRLA Lungs: Clear to auscultation, Normal air movement Cardiovascular: Regular rate, Normal S1, Normal S2 Skin: Dry, Intact Psych/Mental Status: Mental status NL, Mood NL Medications Current Medications Medications Dose Ordered Sig/Amber Route Start Time Stop Time Status Last Admin Dose Admin Aspirin 81 mg DAILY PO 12/18/24 10:00 12/19/24 11:10 81 MG Albuterol 2.5 mg Q6HPRN PRN NEB 12/17/24 19:00 Diagnostic Test (Pha) 1 strip IQ4HR 12/17/24 20:00 12/19/24 11:37 1 STRIP Insulin Human Regular IQ4HR SC 12/17/24 20:00 12/19/24 11:38 6 UNITS Dextrose 50 ml UD PRN IV 12/17/24 19:00 Temazepam 15 mg QHSP PRN PO 12/17/24 19:00 Ondansetron HCl 4 mg Q4HP PRN IV 12/17/24 19:00 Acetaminophen 650 mg Q6HP PRN PO 12/17/24 19:00 12/18/24 10:22 650 MG Nitroglycerin 0.4 mg Q5MINP PRN SL 12/17/24 19:00 Morphine Sulfate 2 mg Q30M PRN IV 12/17/24 19:00 Hydrochlorothiazide 12.5 mg DAILY PO 12/18/24 10:00 12/19/24 11:11 12.5 MG Hydralazine HCl 10 mg Q6HP PRN IV 12/18/24 08:30 12/18/24 08:52 10 MG Atorvastatin Calcium 40 mg HS PO 12/18/24 22:00 12/18/24 21:23 40 MG Metoprolol Succinate 25 mg DAILY PO 12/18/24 11:45 12/19/24 11:10 25 MG Thiamine HCl 100 mg DAILY PO 12/19/24 10:00 12/19/24 11:10 100 MG Folic Acid 1 mg DAILY PO 12/19/24 10:00 12/19/24 11:10 1 MG Laboratory Results Laboratory Tests 12/17/24 16:30 12/18/24 05:20 Urinalysis Test 12/17/24 16:17 Urine Color Light-yellow (Yellow) Urine Clarity Clear (Clear) Urine pH 6.5 (5.0-9.0) Urine Specific [place] 1.022 (1.001-1.035) Urine Protein 2+ (Negative) H Urine Ketones Negative (Negative) Urine Blood Negative /uL (Negative) Urine Nitrite Negative (Negative) Urine Bilirubin Negative (Negative) Urine Urobilinogen Normal mg/dL (Negative) Urine Leukocyte Esterase Negative /uL (Negative) Urine RBC <1 /hpf (0 - 3) Urine Microscopic WBC < 1 /HPF (0-3) Urine Squamous Epithelial Cells None seen /hpf (<5) Urine Bacteria None seen /hpf (None Seen) Urine Glucose 4+ mg/dL (Normal) H Labs and/or images reviewed: Labs reviewed by me, Image(s) reviewed by me Assessment/Plan Assessment/Plan Impression: -hypertensive crisis -history of CAD, rule out ACS -diabetes mellitus -dyslipidemia -alcoholism -medication noncompliance -hyperkalemia -probable CKD stage IIIA Plan: Events: Patient had stress test, results pending. -stop JIA inhibitor given hyperkalemia -start Toprol-XL 25 mg p.o. daily -echocardiogram and cardiac stress test pending. -cardiology consultation: Discussed case -increase atorvastatin 40 mg p.o. q.h.s. -regular insulin sliding scale -hold diuretics given clear CT scan and probable hyperosmolar diuresis from uncontrolled blood sugars Total time spent with patient discussing and formulating plan of care: 35 minutes. This medical document was created using an electronic medical record system with [employer] system. Although this document has been carefully reviewed, there may still be some phonetic and typographical errors. These areas are purely typographical due to imperfections of the software programs, and do not reflect any compromise in the patient's medical care. Plan discussed with: Patient, Other (RN) My Orders Orders - SHAKEEL POWELL NP Procedure Category Date Status Time Cardiac DIET 12/18/24 Transmitted Diet-2gna,Lofat,Lochol Dinner Date of Service: December 19, 2024 Billing Provider: SHAKEEL POWELL NP Common Visit Codes: [id number] INP/OBS CARE(HIGH) SHAKEEL POWELL NP December 19, 2024 14:14
--- NOTE | 2024-12-19 17:52 | DVHSR ---
APPROVED REPORT Exam: Nuclear Stress Test Indication: Chest pain BMI: 0 Medical History Medical History: IA, CP, HTN, DM, HLD, CABG Allergies: No known drug allergies Stress Test Details Stress Test: Pharmacologic stress testing performed using 0.4 mg of regadenoson per 5 mL given IV ov er 10 seconds. HR Resting HR: 89 bpmMax Heart Rate (APMHR): 156.742564 bpm Max HR Achieved: 103 bpmTarget HR (85% APMHR): 132.422976 bpm % of APMHR: 66.03 Recovery HR: 95 bpm BP Resting BP: 108/59 mmHg Recovery BP: 122/73 mmHg ECG Resting ECG: Sinus Rhythm Clinical Reason for Termination: Completed protocol Nurse Comments Recieved pt. from [employer]. A/Ox4 on RA. Connected to ekg monitor, VS stable. PIV flushes well. Reviewed POC. Pt. verbalized understanding of procedure including risks and side ef fects, agrees for stress testing. Lexiscan stress test performed per protocol. [employer] tech administered Cardiolite. Pt. tolerated well . Pt. stable, no change on exam. VS returned to baseline. Transferred to [employer] via wheelchair w/ te ch. Stress ECG Conclusion signficant inferolateral wall ischemia noted lvef 27% severe dilated LV ecg shows SR RBBB NM EXAM: Myocardial Perfusion REST/STRESS Imaging Protocol: Rest Tc-99m/Stress Tc-99m 1 day Resting Data Rest SPECT myocardial perfusion imaging was performed in supine position 60 minutes following the int ravenous injection of 8.0 mCi of Tc-99m Sestamibi. Time of rest injection: 08:09 Date: 12/19/2024 Time of rest imagin:09 Date: 12/19/2024 Administration Route: IV Administration Site: Left Arm Pharmacologic Stress Pharmacologic stress test was performed by injecting Regadenoson 0.4 mg IV push followed by the intra venous injection of 33.7 mCi of Tc-99m Sestamibi. Time of stress injection: 10:10 Date: 12/19/2024 Time of stress imagin:55 Date: 12/19/2024 Administration Route: IV Administration Site: Left Arm Gated Stress SPECT was performed 45 minutes after stress injection. The images were gated to evaluate regional wall motion and calculate left ventricular ejection fracti on. Stress only was performed in the Supine position. Nuclear Conclusion Nuclear Findings: positive for ischemia signficant inferolateral wall ischemia noted lvef 27% severe dilated LV ecg shows SR RBBB
--- NOTE | 2024-12-19 18:57 | DVHPN2 ---
Progress Note Date Seen: December 19, 2024 Resident Creating Document: CEDRICK HUBER RESIDENT Medical Necessity Reason Pt with a Central, PICC or Fol: No Subjective Review of Systems History of Present Illness 64-year-old male with past medical history of hypertension, hyperlipidemia, diabetes mellitus type 2, MD status post CABG in 2012 presented in the ED as he had EKG done in the primary care physician's office on PCP referred him to ER. He mentioned that he has been having left-sided intermittent chest pain on and off for last one year. He also complaint of nausea vomiting and diarrhea for few months. Patient denied shortness of breath on rest but gets shortness of breath on walking 20 ft. Mentioned that he had complaints of swelling in bilateral lower leg for last one year. Described his chest pain as left-sided, pressure-like, sometimes radiating to the back, mainly affected by rest and activity, slightly improved sitting up. patient does not take any medication to get relief of chest pain. He denied any complaints of cough, palpitation, orthopnea, PND. Cardiology was consulted for chest pain. Patient is not mentioning of any active symptoms. Mentioned he gets stress test every year and last stress test was one and a half years ago which was with normal limits according to him. Patient mentioned he has not been taking his medications for last one year because of insurance issues but has been aspirin 81 mg because it is over the counter. Past Medical History described in the HPI Past Surgical History described in the HPI Family History does not remember Social History Quit smoking in 2012, was smoking for 40 years Current alcohol intake, 4-6 shots of whiskey 3-4 days in a week Denied marijuana or any other drug intake Interval events mentioned no chest pain today had Stress test done today Objective vital signs Vital Sign Date Time Temp Pulse Resp B/P (MAP) Pulse Ox O2 Delivery O2 Flow Rate FiO2 12/19/24 17:20 99/77 (84) 12/19/24 17:00 98.4 81 17 93 98.4 12/19/24 08:00 Room Air* 0 21 Total Intake and Output 12/18/24 12/18/24 12/19/24 15:00 23:00 07:00 Intake Total 260 ml Balance 260 ml medications Current Medications Medications Dose Ordered Sig/Amber Route Start Time Stop Time Status Last Admin Dose Admin Aspirin 81 mg DAILY PO 12/18/24 10:00 12/19/24 11:10 81 MG Albuterol 2.5 mg Q6HPRN PRN NEB 12/17/24 19:00 Diagnostic Test (Pha) 1 strip IQ4HR 12/17/24 20:00 12/19/24 16:00 1 STRIP Insulin Human Regular IQ4HR SC 12/17/24 20:00 12/19/24 16:44 10 UNITS Dextrose 50 ml UD PRN IV 12/17/24 19:00 Temazepam 15 mg QHSP PRN PO 12/17/24 19:00 Ondansetron HCl 4 mg Q4HP PRN IV 12/17/24 19:00 Acetaminophen 650 mg Q6HP PRN PO 12/17/24 19:00 12/18/24 10:22 650 MG Nitroglycerin 0.4 mg Q5MINP PRN SL 12/17/24 19:00 Morphine Sulfate 2 mg Q30M PRN IV 12/17/24 19:00 Hydrochlorothiazide 12.5 mg DAILY PO 12/18/24 10:00 Hold 12/19/24 11:11 12.5 MG Hydralazine HCl 10 mg Q6HP PRN IV 12/18/24 08:30 12/18/24 08:52 10 MG Atorvastatin Calcium 40 mg HS PO 12/18/24 22:00 12/18/24 21:23 40 MG Metoprolol Succinate 25 mg DAILY PO 12/18/24 11:45 Hold 12/19/24 11:10 25 MG Thiamine HCl 100 mg DAILY PO 12/19/24 10:00 12/19/24 11:10 100 MG Folic Acid 1 mg DAILY PO 12/19/24 10:00 12/19/24 11:10 1 MG Examination Examination General Appearance: Alert, Oriented X3, Cooperative, No acute distress HEENT: EOMI Respiratory: Clear to auscultation, Normal air movement Cardiovascular: Regular rate, Normal S1, Normal S2 Abdominal: Normal bowel sounds Extremities: No cyanosis, No edema, Normal pulses, No tenderness/swelling Skin: No rashes, No breakdown Neuro: Normal gait, Normal speech, Strength at 5/5 X4 ext, Normal tone, Sensation intact, Cranial nerves 3-12 NL, Reflexes 2+ Psych/Mental Status: Mental status NL, Mood NL laboratory and microbiology Laboratory Tests 12/18/24 05:20 12/17/24 16:30 Test 12/18/24 05:20 Range/Units Serum Glucose 217 #H 74-106 mg/dL Labs and/or images reviewed: Labs reviewed by me, Image(s) reviewed by me Problem List/Assessment/Plan Problem List/Assessment/Plan Assessment and Plan # chest pain, cardiac type, rule out ACS -EKG shows right bundle-branch block -troponins 58, 50, 44 stress test shows Nuclear Findings: positive for ischemia signficant inferolateral wall ischemia noted lvef 27% severe dilated LV ecg shows SR RBBB #Elevated trops, likely NSTEMI II due to CHF exacerbation -downtrending #? Acute on ? Chronic heart failure -elevated BNP, 47.20 # history of MD status post CABG -on aspirin and statins #Hypertension # diabetes mellitus # Hyperlipidemia Plan Continue aspirin 81 mg and atorvastatin Echocardiogram, awaiting results Continue antihypertensive, thiazide, lisinopril will schedule the patient for [facility] on sunday Case discussion with Dr. Winters Plan discussed with: Patient, Other My Orders My Orders Orders - CEDRICK HUBER Procedure Category Date Status Time Cardiolite Multiple NM 12/19/24 Resulted 08:59 CEDRICK HUBER December 19, 2024 18:57
[2024-12-20] VITALS (12 sets, daily range): BP systolic 93–146; BP diastolic 59–95; PULSE 67–104; RESP 18–20; TEMP 97–98.3; O2SAT 93–98
--- NOTE | 2024-12-20 12:36 | DVHPN2 ---
[facility] 12/20/24 1236: Consult Progress Note Subjective Other Systems: Patient in normal sinus rhythm on laboratory monitor Denies any cardiac symptoms at time of assessment Patient angry at time of assessment because he did not get a breakfast tray. Objective vital signs Vital Sign Date Time Temp Pulse Resp B/P (MAP) Pulse Ox O2 Delivery O2 Flow Rate FiO2 12/20/24 09:20 93 Room Air* 0 21 12/20/24 09:00 97.2 86 18 106/73 (84) 97.2 Total Intake and Output 12/19/24 12/19/24 12/20/24 15:00 23:00 07:00 Intake Total 250 ml 400 ml Balance 250 ml 400 ml medications Current Medications Medications Dose Ordered Sig/Amber Route Start Time Stop Time Status Last Admin Dose Admin Aspirin 81 mg DAILY PO 12/18/24 10:00 12/20/24 09:33 81 MG Albuterol 2.5 mg Q6HPRN PRN NEB 12/17/24 19:00 Diagnostic Test (Pha) 1 strip IQ4HR 12/17/24 20:00 12/20/24 11:46 1 STRIP Insulin Human Regular IQ4HR SC 12/17/24 20:00 12/20/24 11:46 8 UNITS Dextrose 50 ml UD PRN IV 12/17/24 19:00 Temazepam 15 mg QHSP PRN PO 12/17/24 19:00 Ondansetron HCl 4 mg Q4HP PRN IV 12/17/24 19:00 Acetaminophen 650 mg Q6HP PRN PO 12/17/24 19:00 12/18/24 10:22 650 MG Nitroglycerin 0.4 mg Q5MINP PRN SL 12/17/24 19:00 Morphine Sulfate 2 mg Q30M PRN IV 12/17/24 19:00 Hydrochlorothiazide 12.5 mg DAILY PO 12/18/24 10:00 Hold 12/19/24 11:11 12.5 MG Hydralazine HCl 10 mg Q6HP PRN IV 12/18/24 08:30 12/18/24 08:52 10 MG Atorvastatin Calcium 40 mg HS PO 12/18/24 22:00 12/19/24 21:32 40 MG Metoprolol Succinate 25 mg DAILY PO 12/18/24 11:45 Hold 12/19/24 11:10 25 MG Thiamine HCl 100 mg DAILY PO 12/19/24 10:00 12/20/24 09:33 100 MG Folic Acid 1 mg DAILY PO 12/19/24 10:00 12/20/24 09:33 1 MG Examination: GENERAL:Normal, LUNGS:Normal, CVS:Normal, NEURO:Normal laboratory and microbiology Laboratory Tests 12/18/24 05:20 12/17/24 16:30 Test 12/18/24 05:20 Range/Units Serum Glucose 217 #H 74-106 mg/dL Problem List/Assessment/Plan Problem List/Assessment/Plan Chest pain, rule out aggressive coronary artery disease Rule out structural heart disease Coronary artery disease status post triple vessel CABG Hypertension Hyperlipidemia Type 2 diabetes mellitus We will continue with following plan/recommendations (Dr. Sepulveda): Case discussed with . The patient underwent a nuclear stress test which was found to be positive for ischemia. Given these findings, the patient was offered a coronary angiogram with left heart catheterization for further evaluation. The procedure was discussed with the patient in full detail including risks and benefits. Risks include but are not limited to bleeding, contrast-induced nephropathy, stroke, and even . The patient understands and is agreeable to undergo the procedure. We will schedule the patient at soonest availability on 12/22/24. In the meantime, continue with medical management. Continue single antiplatelet therapy and lipid-lowering agent. Patient currently off antihypertensives given hypotension. Continue with close cardiac surveillance. Thank you for allowing us to care for this patient. Please call with any questions or concerns. This medical document was created using an electronic medical record system with voice recognition software and computerized dictation system. Although this document has been carefully reviewed, there might still be some phonetic and typographical errors. Occasional wrong-word or ``sound-alike substitutions may have occurred due to the inherent limitations of voice recognition software. These areas are purely typographical due to imperfections of the software programs and do not reflect any compromise in the patient's medical care. Please read the chart carefully and recognize, using context, where these substitutions have occurred. Plan discussed with: Patient Date of Service: December 20, 2024 Billing Provider: CEFERINO ELIZALDE Common Visit Codes: [id number] INP/OBS CARE(HIGH) PATT SEPULVEDA MD 12/20/24 1408: Consult Progress Note Problem List/Assessment/Plan Problem List/Assessment/Plan totall non compliant pt, heavy etoh abuse, severe chf, high likelihood for graft failure, unpleasant individual, high risk pt , cath sunday CEFERINO ELIZALDE December 20, 2024 12:36 PATT SEPULVEDA MD December 20, 2024 14:08
--- NOTE | 2024-12-20 12:41 | DVHPN2 ---
Subjective Denies any chest pain today Reviewed: Care Plan, H&P, Labs Changes from previous H/P or p: No Changes General: Per HPI Objective Vitals Vital Signs Date Time Temp Pulse Resp B/P (MAP) Pulse Ox O2 Delivery O2 Flow Rate FiO2 12/20/24 09:20 93 Room Air* 0 21 12/20/24 09:00 97.2 86 18 106/73 (84) 97.2 Intake/Output Intake and Output 12/20/24 07:00 Intake Total 650 ml Balance 650 ml Intake Oral 650 ml # Voids 5 General Appearance: Alert, Oriented X3, Cooperative, No acute distress HEENT: Atraumatic, PERRLA Lungs: Clear to auscultation, Normal air movement Cardiovascular: Regular rate, Normal S1, Normal S2 Skin: Dry, Intact Psych/Mental Status: Mental status NL, Mood NL Medications Current Medications Medications Dose Ordered Sig/Amber Route Start Time Stop Time Status Last Admin Dose Admin Aspirin 81 mg DAILY PO 12/18/24 10:00 12/20/24 09:33 81 MG Albuterol 2.5 mg Q6HPRN PRN NEB 12/17/24 19:00 Diagnostic Test (Pha) 1 strip IQ4HR 12/17/24 20:00 12/20/24 11:46 1 STRIP Insulin Human Regular IQ4HR SC 12/17/24 20:00 12/20/24 11:46 8 UNITS Dextrose 50 ml UD PRN IV 12/17/24 19:00 Temazepam 15 mg QHSP PRN PO 12/17/24 19:00 Ondansetron HCl 4 mg Q4HP PRN IV 12/17/24 19:00 Acetaminophen 650 mg Q6HP PRN PO 12/17/24 19:00 12/18/24 10:22 650 MG Nitroglycerin 0.4 mg Q5MINP PRN SL 12/17/24 19:00 Morphine Sulfate 2 mg Q30M PRN IV 12/17/24 19:00 Hydrochlorothiazide 12.5 mg DAILY PO 12/18/24 10:00 Hold 12/19/24 11:11 12.5 MG Hydralazine HCl 10 mg Q6HP PRN IV 12/18/24 08:30 12/18/24 08:52 10 MG Atorvastatin Calcium 40 mg HS PO 12/18/24 22:00 12/19/24 21:32 40 MG Metoprolol Succinate 25 mg DAILY PO 12/18/24 11:45 Hold 12/19/24 11:10 25 MG Thiamine HCl 100 mg DAILY PO 12/19/24 10:00 12/20/24 09:33 100 MG Folic Acid 1 mg DAILY PO 12/19/24 10:00 12/20/24 09:33 1 MG Laboratory Results Laboratory Tests 12/17/24 16:30 12/18/24 05:20 Urinalysis Test 12/17/24 16:17 Urine Color Light-yellow (Yellow) Urine Clarity Clear (Clear) Urine pH 6.5 (5.0-9.0) Urine Specific [place] 1.022 (1.001-1.035) Urine Protein 2+ (Negative) H Urine Ketones Negative (Negative) Urine Blood Negative /uL (Negative) Urine Nitrite Negative (Negative) Urine Bilirubin Negative (Negative) Urine Urobilinogen Normal mg/dL (Negative) Urine Leukocyte Esterase Negative /uL (Negative) Urine RBC <1 /hpf (0 - 3) Urine Microscopic WBC < 1 /HPF (0-3) Urine Squamous Epithelial Cells None seen /hpf (<5) Urine Bacteria None seen /hpf (None Seen) Urine Glucose 4+ mg/dL (Normal) H Labs and/or images reviewed: Labs reviewed by me, Image(s) reviewed by me Assessment/Plan Assessment/Plan Impression: -hypertensive crisis -history of CAD, rule out ACS -diabetes mellitus -dyslipidemia -alcoholism -medication noncompliance -hyperkalemia -probable CKD stage IIIA Plan: Events: Patient with positive stress test with depressed ejection fraction. Discussed with the patient. Plans for left heart catheterization this Sunday. Patient in agreement -stop JIA inhibitor given hyperkalemia -Continue Toprol-XL 25 mg p.o. daily. Stop hydrochlorothiazide and given low blood pressure -Echocardiogram pending -cardiology consultation: Discussed case -increase atorvastatin 40 mg p.o. q.h.s. -regular insulin sliding scale -repeat labs in a.m. Total time spent with patient discussing and formulating plan of care: 35 minutes. This medical document was created using an electronic medical record system with [employer] system. Although this document has been carefully reviewed, there may still be some phonetic and typographical errors. These areas are purely typographical due to imperfections of the software programs, and do not reflect any compromise in the patient's medical care. Plan discussed with: Patient, Other (RN) My Orders Orders - SHAKEEL POWELL NP Procedure Category Date Status Time Cardiac DIET 12/19/24 Transmitted Diet-2gna,Lofat,Lochol Dinner Basic Metabolic Panel LAB 12/21/24 Verified 04:00 PTPTT LAB 12/21/24 Verified 04:00 Complete Blood Count LAB 12/21/24 Verified 04:00 Date of Service: December 20, 2024 Billing Provider: SHAKEEL POWELL NP Common Visit Codes: [id number] INP/OBS CARE(HIGH) SHAKEEL POWELL NP December 20, 2024 12:40
[2024-12-21] VITALS (9 sets, daily range): BP systolic 90–126; BP diastolic 53–82; PULSE 87–101; RESP 18–20; TEMP 97.4–98.4; O2SAT 92–97
[2024-12-21 07:17] LABS: Basophils # (auto) 0.1 10 ^3/uL (0-0.2); Basophils % (auto) 0.6 % (0.0-2.0); Eosinophils # (auto) 0.1 10 ^3/uL (0-0.8); Eosinophils % (auto) 1.5 % (0.0-7.0); Hematocrit 47.5 % (41.0-53.0); Hemoglobin 16.3 g/dL (13.5-17.5); Lymphocytes # (auto) 1.7 10 ^3/uL (0.4-5.4); Lymphocytes % (auto) 19.4 % (10.0-50.0); Mean Corpuscular Hgb Conc. 34.3 g/dL (32.0-36.0); Mean Corpuscular Volume 93.2 fL (80.0-100.0); Monocytes # (auto) 1.1 10 ^3/uL (0-1.3); Monocytes % (auto) 12.1 % (0.0-12.0); Neutrophils # (auto) 5.9 10 ^3/uL (1.6-8.6); Neutrophils % (auto) 66.4 % (37.0-80.0); Nucleated Red Blood Cells % 0.2 %; Platelet Count (auto) 176 10^3/uL (140-450); Red Blood Cells 5.09 10^6/uL (4.5-5.90); Red Cell Distribution Width 14.9 % (11.8-14.3); White Blood Cell 8.8 10^3/uL (4.4-10.8)
[2024-12-21 07:31] LABS: Alanine Aminotransferase 11 U/L (7-40); Alkaline Phosphatase 74 U/L (46-116); Anion Gap 8 (5-15); BUN/Creatinine Ratio 22.5 (10.0-20.0); Calcium 9.8 mg/dL (8.7-10.4); Carbon Dioxide 21 mmol/L (20-31); Sodium 136 mmol/L (136-145)
[2024-12-21 07:32] LABS: Albumin 4.1 g/dL (3.2-4.8); Aspartate Aminotransferase 16 U/L (13-40)
[2024-12-21 07:33] LABS: Bilirubin, Total 0.7 mg/dL (0.2-1.0)
[2024-12-21 07:38] LABS: INR 0.96 (0.9-1.15); Partial Thromboplastin Time 21.9 SEC (24.5-34.5); Prothrombin Time 10.2 sec (9.3-11.8)
[2024-12-21 07:39] LABS: Blood Urea Nitrogen 39 mg/dL (9-23); Chloride 107 mmol/L (98-107); Glucose 155 mg/dL (74-106); Potassium 5.2 mmol/L (3.5-5.1)
[2024-12-21] MEDS: ONDANSETRON HCL 4 MG/2 ML VIAL IV PRN (11:54)
--- NOTE | 2024-12-21 13:49 | DVHPN2 ---
Subjective Patient reports having nausea and diarrhea today. Reviewed: Care Plan, H&P, Labs Changes from previous H/P or p: Changes General: Per HPI Objective Vitals Vital Signs Date Time Temp Pulse Resp B/P (MAP) Pulse Ox O2 Delivery O2 Flow Rate FiO2 12/21/24 12:44 98.3 97 18 90/60 (70) 92 98.3 12/21/24 07:50 Room Air* 0 21 Intake/Output Intake and Output 12/21/24 07:00 Intake Total 850 ml Balance 850 ml Intake Oral 850 ml # Voids 5 General Appearance: Alert, Oriented X3, Cooperative, No acute distress HEENT: Atraumatic, PERRLA Lungs: Clear to auscultation, Normal air movement Cardiovascular: Regular rate, Normal S1, Normal S2 Extremities: No clubbing, No cyanosis, Normal pulses Neuro: Normal gait, Normal speech, Cranial nerves 3-12 NL Skin: Dry, Intact Psych/Mental Status: Mental status NL, Mood NL Medications Current Medications Medications Dose Ordered Sig/Amber Route Start Time Stop Time Status Last Admin Dose Admin Aspirin 81 mg DAILY PO 12/18/24 10:00 12/21/24 09:02 81 MG Diagnostic Test (Pha) 1 strip IQ4HR 12/17/24 20:00 12/21/24 11:59 1 STRIP Insulin Human Regular IQ4HR SC 12/17/24 20:00 12/21/24 12:01 4 UNITS Dextrose 50 ml UD PRN IV 12/17/24 19:00 Temazepam 15 mg QHSP PRN PO 12/17/24 19:00 Ondansetron HCl 4 mg Q4HP PRN IV 12/17/24 19:00 12/21/24 11:54 4 MG Acetaminophen 650 mg Q6HP PRN PO 12/17/24 19:00 12/18/24 10:22 650 MG Nitroglycerin 0.4 mg Q5MINP PRN SL 12/17/24 19:00 Morphine Sulfate 2 mg Q30M PRN IV 12/17/24 19:00 Hydralazine HCl 10 mg Q6HP PRN IV 12/18/24 08:30 12/18/24 08:52 10 MG Atorvastatin Calcium 40 mg HS PO 12/18/24 22:00 12/20/24 21:14 40 MG Metoprolol Succinate 25 mg DAILY PO 12/18/24 11:45 Hold 12/19/24 11:10 25 MG Thiamine HCl 100 mg DAILY PO 12/19/24 10:00 12/21/24 09:01 100 MG Folic Acid 1 mg DAILY PO 12/19/24 10:00 12/21/24 09:01 1 MG Laboratory Results Laboratory Tests 12/21/24 06:51 Chemistry Test 12/21/24 06:51 Albumin 4.1 g/dL (3.2-4.8) Calcium Level 9.8 mg/dL (8.7-10.4) Total Protein 7.0 g/dL (5.7-8.2) Coagulation Test 12/21/24 06:51 Prothrombin Time 10.2 sec (9.3-11.8) Prothrombin Time INR 0.96 (0.9-1.15) Activated Partial Thromboplast Time 21.9 SEC (24.5-34.5) L LFT Test 12/21/24 06:51 Alanine Aminotransferase (ALT) 11 U/L (7-40) Alkaline Phosphatase 74 U/L (46-116) Aspartate Amino Transferase (AST) 16 U/L (13-40) Total Bilirubin 0.7 mg/dL (0.2-1.0) Urinalysis Test 12/17/24 16:17 Urine Color Light-yellow (Yellow) Urine Clarity Clear (Clear) Urine pH 6.5 (5.0-9.0) Urine Specific [place] 1.022 (1.001-1.035) Urine Protein 2+ (Negative) H Urine Ketones Negative (Negative) Urine Blood Negative /uL (Negative) Urine Nitrite Negative (Negative) Urine Bilirubin Negative (Negative) Urine Urobilinogen Normal mg/dL (Negative) Urine Leukocyte Esterase Negative /uL (Negative) Urine RBC <1 /hpf (0 - 3) Urine Microscopic WBC < 1 /HPF (0-3) Urine Squamous Epithelial Cells None seen /hpf (<5) Urine Bacteria None seen /hpf (None Seen) Urine Glucose 4+ mg/dL (Normal) H Labs and/or images reviewed: Labs reviewed by me, Image(s) reviewed by me Assessment/Plan Assessment/Plan Impression: -hypertensive crisis -history of CAD, rule out ACS -diabetes mellitus -dyslipidemia -alcoholism -medication noncompliance -hyperkalemia -probable CKD stage IIIA -acute kidney injury, vasomotor nephropathy Plan: Events: Mild increase in BUN and creatinine. -gentle IV hydration with sodium bicarbonate infusion -Continue Toprol-XL 25 mg p.o. daily. Stop hydrochlorothiazide and given low blood pressure -Echocardiogram pending -cardiology consultation: Discussed case -increase atorvastatin 40 mg p.o. q.h.s. -regular insulin sliding scale -repeat BMP in a.m. Total time spent with patient discussing and formulating plan of care: 35 minutes. This medical document was created using an electronic medical record system with [employer] dictation system. Although this document has been carefully reviewed, there may still be some phonetic and typographical errors. These areas are purely typographical due to imperfections of the software programs, and do not reflect any compromise in the patient's medical care. Plan discussed with: Patient, Other (RN) My Orders Orders - SHAKEEL POWELL NP Procedure Category Date Status Time Notify Provider NOTICE 12/20/24 Transmitted Malnutrition 17:45 Nutritional NOURISH 12/20/24 Transmitted Supplements 17:45 Dietary NOTICE 12/20/24 Transmitted Recommendations 17:45 Sodium Bicarb PHA 12/21/24 In Process 50meq/50ml Vial 12:45 Basic Metabolic Panel LAB 12/22/24 Verified 04:00 Date of Service: Dec 21, 2024 Billing Provider: SHAKEEL POWELL NP Common Visit Codes: [id number] INP/OBS CARE(HIGH) SHAKEEL POWELL NP Dec 21, 2024 13:49
[2024-12-21] MEDS: SODIUM BICARB 50mEq/50ml Vial 50 ML in SOD CHL 0.45% 1,000 ML IV ONE (14:09)
[2024-12-21] MEDS: DIPHENOXYLATE W/ATROPINE 2.5 MG TAB PO PRN (17:35)
[2024-12-22] VITALS (15 sets, daily range): BP systolic 92–157; BP diastolic 61–109; PULSE 68–108; RESP 12–20; TEMP 97.9–98.3; O2SAT 91–100
[2024-12-22 00:22] LABS: Urine Bacteria None Seen /hpf (None Seen)
[2024-12-22 00:36] LABS: Urine Blood Negative /uL (Negative); Urine Clarity Clear (Clear); Urine Color Yellow (Yellow); Urine Hyaline Cast FEW /lpf (0 - 2); Urine Protein, UAD 1+ (Negative); Urine Specific Gravity 1.022 (1.001-1.035); Urine Squamous Epithelial Cell FEW /hpf (<5); Urine Urobilinogen Normal (Negative); Urine WBC < 1 /HPF (0-3)
--- NOTE | 2024-12-22 06:31 | DVH ---
CHEST RADIOGRAPH Indication: preop Technique: Single frontal view of the chest was obtained Comparison: XY CHEST PORTABLE on DOS: 12/17/24 FINDINGS: Lines and Tubes: None Lungs: Bilateral interstitial prominence. No focal consolidation. Pleura: Left sided pleural calcifications. Trace bilateral pleural effusions. No pneumothorax. Cardiomediastinal contours: Stable cardiomegaly. Bones: No acute osseous abnormality. Status post median sternotomy. IMPRESSION: 1. Pulmonary vascular congestion. 2. Trace bilateral pleural effusions.
[2024-12-22 07:00] LABS: Basophils # (auto) 0 10 ^3/uL (0-0.2); Basophils % (auto) 0.3 % (0.0-2.0); Eosinophils # (auto) 0.2 10 ^3/uL (0-0.8); Eosinophils % (auto) 3.1 % (0.0-7.0); Hematocrit 45.4 % (41.0-53.0); Hemoglobin 15.4 g/dL (13.5-17.5); Lymphocytes # (auto) 1.9 10 ^3/uL (0.4-5.4); Lymphocytes % (auto) 28.8 % (10.0-50.0); Mean Corpuscular Hgb Conc. 33.9 g/dL (32.0-36.0); Mean Corpuscular Volume 94.3 fL (80.0-100.0); Monocytes # (auto) 0.8 10 ^3/uL (0-1.3); Monocytes % (auto) 12.7 % (0.0-12.0); Neutrophils # (auto) 3.6 10 ^3/uL (1.6-8.6); Neutrophils % (auto) 55.1 % (37.0-80.0); Nucleated Red Blood Cells % 0.2 %; Platelet Count (auto) 167 10^3/uL (140-450); Red Blood Cells 4.82 10^6/uL (4.5-5.90); White Blood Cell 6.5 10^3/uL (4.4-10.8)
[2024-12-22 07:16] LABS: Anion Gap 7 (5-15); Calcium 9.5 mg/dL (8.7-10.4); Carbon Dioxide 26 mmol/L (20-31); Chloride 106 mmol/L (98-107); Sodium 139 mmol/L (136-145)
[2024-12-22 07:23] LABS: BUN/Creatinine Ratio 24.3 (10.0-20.0)
[2024-12-22 07:24] LABS: Blood Urea Nitrogen 53 mg/dL (9-23); Glucose 135 mg/dL (74-106)
[2024-12-22 07:27] LABS: Potassium 5.8 mmol/L (3.5-5.1)
[2024-12-22] MEDS: SODIUM ZIRCONIUM CYCL 10 GM PAK PO ONE (07:54)
--- NOTE | 2024-12-22 08:19 | ECG ---
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
[2024-12-22] MEDS ORDERED: ALBUTEROL SULF 2.5 MG/0.5ML(0.5%) NEB SOLN NEB ONE (08:30)
[2024-12-22] MEDS: ALBUTEROL SULF 2.5 MG/0.5ML(0.5%) NEB SOLN ONE (09:20)
[2024-12-22] MEDS: DEXTROSE (50%) 50ML SYRG IV ONE (10:11)
[2024-12-22] MEDS: SODIUM BICARB 8.4% 50Meq/50ml SYR INJ IV ONE (10:12)
--- NOTE | 2024-12-22 10:13 | DVH ---
INDICATION: YO TECHNIQUE: Multiple real-time sonographic images of the kidneys and bladder were obtained. COMPARISON: None FINDINGS: The right kidney measures 14 cm in length, which is normal in size. There is normal echogen icity of the right kidney. No hydronephrosis. Left kidney not visualized. No large intraluminal masses are seen in the bladder. Prostate measures 4 x 4 x 3 cm. Prostate volume measures 21 cc IMPRESSION: Left renal atrophy versus agenesis. No hydronephrosis.
[2024-12-22] MEDS: InsuLIN REG 1unit/0.01ml Soln (100units/ml) IV ONE (10:14)
--- NOTE | 2024-12-22 10:39 | DVHINCON2 ---
Date of service: Dec 22, 2024 Referring Physician Ravi Amado NP Reason for Consultation Acute kidney injury History of Present Illness Patient is a 64-year-old male with past medical history significant for MD, HTN, DM, and HLD who was not taking any medication due to financial reason patient was referred for abnormal lab. On admission patient found to have elevated BUN and creatinine nephrology is consulted for acute kidney injury Past Medical History Past Medical History: MD, HTN, DM, HLD, Chronic Kidney Disease, atrophic left kidney Past Surgical History Past Surgical History: CABG, TONSILLECTOMY Allergies: Coded Allergies: NO KNOWN ALLERGIES (Unverified , 12/17/24) Current Medications Current Medications Medications (Trade) Dose Ordered Sig/Amber Route PRN Reason Start Time Stop Time Status Last Admin Diphenoxylate HCl/ Atropine (Lomotil Tablet) 2.5 mg PRN PRN PO FOR DIARRHEA 12/21/24 14:00 12/21/24 23:47 Sodium Bicarbonate 50 ml/ Sodium Chloride 1,050 ml @ 100 mls/hr [id number] IV 12/22/24 09:00 12/22/24 11:33 Magnesium Sulfate/ Dextrose 100 ml @ 100 mls/hr Q1HR IV 12/22/24 11:00 12/22/24 12:59 UNV Review of Systems All 12 item review of systems reviewed with the patient nonsignificant except what is mentioned in the history of present illness H&P Exam Vital Signs/I&O Vital Sign Date Time Temp Pulse Resp B/P (MAP) Pulse Ox O2 Delivery O2 Flow Rate FiO2 12/22/24 09:32 70 14 100 12/22/24 09:00 98.1 92/64 (73) 98.1 12/22/24 07:50 Room Air* 0 21 Intake and Output 12/21/24 12/22/24 19:00 07:00 Intake Total 500 ml 1000 ml Balance 500 ml 1000 ml Intake Oral 500 ml 400 ml IV Total 600 ml # Voids 6 1 # Bowel Movements 6 Physical Exam Patient is awake and alert appeared in no acute distress Lungs clear to auscultation bilaterally Cardiac exam regular rate and rhythm GI Obese nontender was normal extremity trace pitting edema Neuro nonfocal Labs/Diagnostic Data Labs/Diagnostic Data Laboratory Tests Test 12/22/24 11:02 12/22/24 10:13 12/22/24 07:23 12/22/24 06:13 Range/Units POC Glucose 283 H 188 H 133 H 70-106 mg/dl White Blood Count 6.5 # 4.4-10.8 10^3/uL Red Blood Count 4.82 4.5-5.90 10^6/uL Hemoglobin 15.4 13.5-17.5 g/dL Hematocrit 45.4 41.0-53.0 % Mean Corpuscular Volume 94.3 80.0-100.0 fL Mean Corpuscular Hemoglobin 32.0 28.0-32.0 pg Mean Corpuscular Hemoglobin Concent 33.9 32.0-36.0 g/dL Red Cell Distribution Width 15.0 H 11.8-14.3 % Platelet Count 167 140-450 10^3/uL Mean Platelet Volume 8.8 6.9-10.8 fL Neutrophils (%) (Auto) 55.1 37.0-80.0 % Lymphocytes (%) (Auto) 28.8 10.0-50.0 % Monocytes (%) (Auto) 12.7 H 0.0-12.0 % Eosinophils (%) (Auto) 3.1 0.0-7.0 % Basophils (%) (Auto) 0.3 0.0-2.0 % Neutrophils # (Auto) 3.6 1.6-8.6 10 ^3/uL Lymphocytes # (Auto) 1.9 0.4-5.4 10 ^3/uL Monocytes # (Auto) 0.8 0-1.3 10 ^3/uL Eosinophils # (Auto) 0.2 0-0.8 10 ^3/uL Basophils # (Auto) 0 0-0.2 10 ^3/uL Nucleated Red Blood Cells 0.2 % Sodium Level 139 136-145 mmol/L Potassium Level 5.8 *H 3.5-5.1 mmol/L Chloride Level 106 98-107 mmol/L Carbon Dioxide Level 26 20-31 mmol/L Anion Gap 7 5-15 Blood Urea Nitrogen 53 #H 9-23 mg/dL Creatinine 2.18 H 0.700-1.30 mg/dL Glomerular Filtration Rate Calc 33 >90 mL/min BUN/Creatinine Ratio 24.3 H 10.0-20.0 Serum Glucose 135 H 74-106 mg/dL Uric Acid 11.2 H 3.7-9.2 mg/dL Calcium Level 9.5 8.7-10.4 mg/dL Phosphorus Level 4.8 2.4-5.1 mg/dL Magnesium Level 2.1 1.6-2.6 mg/dL B-Type Natriuretic Peptide 128.31 0-100 pg/mL Vitamin D 25-Hydroxy 17.1 L 30.0-100 ng/mL Parathyroid Hormone (Intact) 77.8 18.4-80.1 pg/mL Test 12/22/24 04:56 12/22/24 00:14 12/21/24 23:49 12/21/24 19:54 Range/Units POC Glucose 144 H 137 H 203 H 70-106 mg/dl Urine Color Yellow Yellow Urine Clarity Clear Clear Urine pH 5.0 5.0-9.0 Urine Specific [place] 1.022 1.001-1.035 Urine Protein 1+ H Negative Urine Ketones Negative Negative Urine Blood Negative Negative /uL Urine Nitrite Negative Negative Urine Bilirubin Negative Negative Urine Urobilinogen Normal Negative mg/dL Urine Leukocyte Esterase Negative Negative /uL Urine RBC <1 0 - 3 /hpf Urine Microscopic WBC < 1 0-3 /HPF Urine Squamous Epithelial Cells Few <5 /hpf Urine Bacteria None seen None Seen /hpf Urine Hyaline Casts Few 0 - 2 /lpf Urine Granular Casts Few 0 /lpf Urine Creatinine 180.77 H 30.0-125.0 mg/dL Urine Protein/Creatinine Ratio 0.62 Urine Sodium 45 40-220 mmol/L Urine Glucose Normal Normal mg/dL Urine Total Protein 111.5 H 1-14 mg/dL Urine Opiates Screen Neg NEGATIVE Urine Barbiturates Screen Neg NEGATIVE Urine Phencyclidine Screen Neg NEGATIVE Urine Amphetamines Screen Neg NEGATIVE Urine Benzodiazepines Screen Neg NEGATIVE Urine Cocaine Screen Neg NEGATIVE Urine Cannabinoids Screen Neg NEGATIVE Test 12/21/24 16:29 12/21/24 11:56 12/21/24 07:42 12/21/24 06:51 Range/Units POC Glucose 277 H 244 H 187 H 70-106 mg/dl White Blood Count 8.8 # 4.4-10.8 10^3/uL Red Blood Count 5.09 4.5-5.90 10^6/uL Hemoglobin 16.3 13.5-17.5 g/dL Hematocrit 47.5 41.0-53.0 % Mean Corpuscular Volume 93.2 80.0-100.0 fL Mean Corpuscular Hemoglobin 32.0 28.0-32.0 pg Mean Corpuscular Hemoglobin Concent 34.3 32.0-36.0 g/dL Red Cell Distribution Width 14.9 H 11.8-14.3 % Platelet Count 176 140-450 10^3/uL Mean Platelet Volume 8.6 6.9-10.8 fL Neutrophils (%) (Auto) 66.4 37.0-80.0 % Lymphocytes (%) (Auto) 19.4 10.0-50.0 % Monocytes (%) (Auto) 12.1 H 0.0-12.0 % Eosinophils (%) (Auto) 1.5 0.0-7.0 % Basophils (%) (Auto) 0.6 0.0-2.0 % Neutrophils # (Auto) 5.9 1.6-8.6 10 ^3/uL Lymphocytes # (Auto) 1.7 0.4-5.4 10 ^3/uL Monocytes # (Auto) 1.1 0-1.3 10 ^3/uL Eosinophils # (Auto) 0.1 0-0.8 10 ^3/uL Basophils # (Auto) 0.1 0-0.2 10 ^3/uL Nucleated Red Blood Cells 0.2 % Prothrombin Time 10.2 9.3-11.8 sec Prothrombin Time INR 0.96 0.9-1.15 Activated Partial Thromboplast Time 21.9 L 24.5-34.5 SEC Sodium Level 136 136-145 mmol/L Potassium Level 5.2 H 3.5-5.1 mmol/L Chloride Level 107 98-107 mmol/L Carbon Dioxide Level 21 20-31 mmol/L Anion Gap 8 5-15 Blood Urea Nitrogen 39 H 9-23 mg/dL Creatinine 1.73 H 0.700-1.30 mg/dL Glomerular Filtration Rate Calc 44 >90 mL/min BUN/Creatinine Ratio 22.5 H 10.0-20.0 Serum Glucose 155 H 74-106 mg/dL Calcium Level 9.8 8.7-10.4 mg/dL Total Bilirubin 0.7 0.2-1.0 mg/dL Aspartate Amino Transferase (AST) 16 13-40 U/L Alanine Aminotransferase (ALT) 11 7-40 U/L Alkaline Phosphatase 74 46-116 U/L Total Protein 7.0 5.7-8.2 g/dL Albumin 4.1 3.2-4.8 g/dL Test 12/21/24 04:08 12/21/24 00:02 12/20/24 20:01 12/20/24 16:05 Range/Units POC Glucose 166 H 271 H 276 H 239 H 70-106 mg/dl Test 12/20/24 11:24 12/20/24 08:12 12/20/24 04:03 12/20/24 00:04 Range/Units POC Glucose 282 H 177 H 165 H 118 H 70-106 mg/dl Test 12/19/24 20:08 12/19/24 16:09 12/19/24 16:08 12/19/24 11:35 Range/Units POC Glucose 277 H 398 H 450 *H 279 H 70-106 mg/dl Test 12/19/24 07:49 12/19/24 04:01 12/19/24 00:05 12/18/24 20:26 Range/Units POC Glucose 156 H 187 H 253 H 232 H 70-106 mg/dl Test 12/18/24 15:52 12/18/24 12:08 12/18/24 08:41 12/18/24 05:20 Range/Units POC Glucose 298 H 361 H 207 H 70-106 mg/dl Sodium Level 138 136-145 mmol/L Potassium Level 4.0 3.5-5.1 mmol/L Chloride Level 102 98-107 mmol/L Carbon Dioxide Level 25 20-31 mmol/L Anion Gap 11 5-15 Blood Urea Nitrogen 29 H 9-23 mg/dL Creatinine 1.52 H 0.700-1.30 mg/dL Glomerular Filtration Rate Calc 51 >90 mL/min BUN/Creatinine Ratio 19.1 10.0-20.0 Serum Glucose 217 #H 74-106 mg/dL Calcium Level 9.3 8.7-10.4 mg/dL Test 12/18/24 04:10 12/17/24 23:33 12/17/24 22:16 12/17/24 20:14 Range/Units POC Glucose 214 H 371 H 437 *H 70-106 mg/dl Potassium Level 4.5 3.5-5.1 mmol/L Test 12/17/24 19:32 12/17/24 17:21 12/17/24 17:15 12/17/24 16:30 Range/Units Troponin I High Sensitivity 44 50 58 *H </=54 ng/L POC Glucose 471 *H 70-106 mg/dl White Blood Count 6.4 4.4-10.8 10^3/uL Red Blood Count 5.01 4.5-5.90 10^6/uL Hemoglobin 16.2 13.5-17.5 g/dL Hematocrit 46.8 41.0-53.0 % Mean Corpuscular Volume 93.3 80.0-100.0 fL Mean Corpuscular Hemoglobin 32.3 H 28.0-32.0 pg Mean Corpuscular Hemoglobin Concent 34.6 32.0-36.0 g/dL Red Cell Distribution Width 15.0 H 11.8-14.3 % Platelet Count 170 140-450 10^3/uL Mean Platelet Volume 8.5 6.9-10.8 fL Neutrophils (%) (Auto) 67.1 37.0-80.0 % Lymphocytes (%) (Auto) 20.7 10.0-50.0 % Monocytes (%) (Auto) 8.7 0.0-12.0 % Eosinophils (%) (Auto) 2.7 0.0-7.0 % Basophils (%) (Auto) 0.8 0.0-2.0 % Neutrophils # (Auto) 4.3 1.6-8.6 10 ^3/uL Lymphocytes # (Auto) 1.3 0.4-5.4 10 ^3/uL Monocytes # (Auto) 0.6 0-1.3 10 ^3/uL Eosinophils # (Auto) 0.2 0-0.8 10 ^3/uL Basophils # (Auto) 0.1 0-0.2 10 ^3/uL Nucleated Red Blood Cells 0.2 % Sodium Level 134 L 136-145 mmol/L Potassium Level 5.3 H 3.5-5.1 mmol/L Chloride Level 101 98-107 mmol/L Carbon Dioxide Level 24 20-31 mmol/L Anion Gap 9 5-15 Blood Urea Nitrogen 31 H 9-23 mg/dL Creatinine 1.66 H 0.700-1.30 mg/dL Glomerular Filtration Rate Calc 46 >90 mL/min BUN/Creatinine Ratio 18.7 10.0-20.0 Serum Glucose 436 *H 74-106 mg/dL Hemoglobin A1c > 14.0 H <5.7 % A1C Lactic Acid Level 1.6 0.4-2.0 mmol/L Calcium Level 9.4 8.7-10.4 mg/dL Magnesium Level 1.6 1.6-2.6 mg/dL Total Bilirubin 0.7 0.2-1.0 mg/dL Aspartate Amino Transferase (AST) 13 13-40 U/L Alanine Aminotransferase (ALT) 12 7-40 U/L Alkaline Phosphatase 86 46-116 U/L B-Type Natriuretic Peptide 547.20 0-100 pg/mL Total Protein 7.1 5.7-8.2 g/dL Albumin 4.2 3.2-4.8 g/dL Triglycerides Level 277 H < 150 mg/dL Cholesterol Level 289 H < 200 mg/dL LDL Cholesterol 208 H < 100 mg/dL HDL Cholesterol 61 H 40-59 mg/dL Lipase 81 H 12-53 U/L Thyroid Stimulating Hormone (TSH) 2.86 0.55-4.78 uIU/mL Test 12/17/24 16:17 Range/Units Urine Color Light-yellow Yellow Urine Clarity Clear Clear Urine pH 6.5 5.0-9.0 Urine Specific [place] 1.022 1.001-1.035 Urine Protein 2+ H Negative Urine Ketones Negative Negative Urine Blood Negative Negative /uL Urine Nitrite Negative Negative Urine Bilirubin Negative Negative Urine Urobilinogen Normal Negative mg/dL Urine Leukocyte Esterase Negative Negative /uL Urine RBC <1 0 - 3 /hpf Urine Microscopic WBC < 1 0-3 /HPF Urine Squamous Epithelial Cells None seen <5 /hpf Urine Bacteria None seen None Seen /hpf Urine Glucose 4+ H Normal mg/dL Assessment Acute kidney injury superimposed Chronic Kidney Disease secondary hemodynamic mediated Uncontrolled diabetes mellitus type 2 Congestive heart failure exacerbation Hyperkalemia due to dietary indiscretion Hypomagnesemia due to magnesium depletion Proteinuria likely due to underlying diabetic nephropathy Medical noncompliance Atrophic left kidney Recommendations Closely monitor fluid and electrolytes Avoid nephrotoxic medications Strict I&Os Low K renal diet Lokelma 10 g p.o. Magnesium sulfate IV piggyback Insulin sliding scale Check urine drug screen Kidney ultrasound reported atrophic left kidney Check urine lytes and protein excretion Cardiology consult We will continue to follow Patient seen and examined by myself. I discussed my plan of care with the patient and primary nurse at the bedside I would like to thank Ravi for the consult, will follow up Plan discussed with: Patient MARKOS CLEVELAND MD Dec 22, 2024 10:39
[2024-12-22] MEDS: MAGNESIUM SULFATE 1GM/100ML 100 ML IV SCH (11:00)
[2024-12-22 11:01] LABS: Magnesium 2.1 mg/dL (1.6-2.6)
[2024-12-22 11:02] LABS: Phosphorus 4.8 mg/dL (2.4-5.1)
[2024-12-22 11:03] LABS: Uric Acid 11.2 mg/dL (3.7-9.2)
[2024-12-22 11:07] LABS: Amphetamine Screen, Urine Neg (NEGATIVE); Creatinine, Urine 180.77 mg/dL (30.0-125.0); Protein, Urine 111.5 mg/dL (1-14); Urine Protein/Creatinine Ratio 0.62
[2024-12-22 11:12] LABS: Barbiturate Scree,Urine Neg (NEGATIVE); Benzodiazephine Screen, Urine Neg (NEGATIVE); Cannabinoid Screen, Urine Neg (NEGATIVE); Cocaine Screen, Urine Neg (NEGATIVE); Opiate Scree,Urine Neg (NEGATIVE); Phencyclidine Screen, Urine Neg (NEGATIVE)
--- NOTE | 2024-12-22 11:25 | DVHPN2 ---
Subjective Patient reports diarrhea has improved. Reporting shivering. Reviewed: Care Plan, H&P, Labs Changes from previous H/P or p: Changes General: Per HPI Objective Vitals Vital Signs Date Time Temp Pulse Resp B/P (MAP) Pulse Ox O2 Delivery O2 Flow Rate FiO2 12/22/24 09:32 70 14 100 12/22/24 09:00 98.1 92/64 (73) 98.1 12/22/24 07:50 Room Air* 0 21 Intake/Output Intake and Output 12/22/24 07:00 Intake Total 1500 ml Balance 1500 ml Intake Oral 900 ml IV Total 600 ml # Voids 7 # Bowel Movements 6 General Appearance: Alert, Oriented X3, Cooperative, No acute distress HEENT: Atraumatic, PERRLA Lungs: Clear to auscultation, Normal air movement Cardiovascular: Regular rate, Normal S1, Normal S2 Extremities: No clubbing, No cyanosis, Normal pulses Neuro: Normal gait, Normal speech, Cranial nerves 3-12 NL Skin: Dry, Intact Psych/Mental Status: Mental status NL, Mood NL Medications Current Medications Medications Dose Ordered Sig/Amber Route Start Time Stop Time Status Last Admin Dose Admin Aspirin 81 mg DAILY PO 12/18/24 10:00 12/22/24 10:15 81 MG Diagnostic Test (Pha) 1 strip IQ4HR 12/17/24 20:00 12/22/24 07:54 1 STRIP Insulin Human Regular IQ4HR SC 12/17/24 20:00 12/22/24 05:07 2 UNITS Dextrose 50 ml UD PRN IV 12/17/24 19:00 Temazepam 15 mg QHSP PRN PO 12/17/24 19:00 Ondansetron HCl 4 mg Q4HP PRN IV 12/17/24 19:00 12/21/24 16:47 4 MG Acetaminophen 650 mg Q6HP PRN PO 12/17/24 19:00 12/18/24 10:22 650 MG Nitroglycerin 0.4 mg Q5MINP PRN SL 12/17/24 19:00 Morphine Sulfate 2 mg Q30M PRN IV 12/17/24 19:00 Hydralazine HCl 10 mg Q6HP PRN IV 12/18/24 08:30 12/18/24 08:52 10 MG Atorvastatin Calcium 40 mg HS PO 12/18/24 22:00 12/21/24 21:14 40 MG Metoprolol Succinate 25 mg DAILY PO 12/18/24 11:45 Hold 12/19/24 11:10 25 MG Thiamine HCl 100 mg DAILY PO 12/19/24 10:00 12/22/24 10:15 100 MG Folic Acid 1 mg DAILY PO 12/19/24 10:00 12/22/24 10:15 1 MG Diphenoxylate HCl/ Atropine 2.5 mg PRN PRN PO 12/21/24 14:00 12/21/24 23:47 2.5 MG Sodium Bicarbonate 50 ml/ Sodium Chloride 1,050 ml @ 100 mls/hr [id number] IV 12/22/24 09:00 Magnesium Sulfate/ Dextrose 100 ml @ 100 mls/hr Q1HR IV 12/22/24 11:00 12/22/24 12:59 UNV Laboratory Results Laboratory Tests 12/22/24 06:13 Chemistry Test 12/22/24 06:13 Calcium Level 9.5 mg/dL (8.7-10.4) Magnesium Level 2.1 mg/dL (1.6-2.6) Phosphorus Level 4.8 mg/dL (2.4-5.1) Cardiac Markers Test 12/22/24 06:13 B-Type Natriuretic Peptide 128.31 pg/mL (0-100) Urinalysis Test 12/22/24 00:14 Urine Color Yellow (Yellow) Urine Clarity Clear (Clear) Urine pH 5.0 (5.0-9.0) Urine Specific [place] 1.022 (1.001-1.035) Urine Protein 1+ (Negative) H Urine Ketones Negative (Negative) Urine Blood Negative /uL (Negative) Urine Nitrite Negative (Negative) Urine Bilirubin Negative (Negative) Urine Urobilinogen Normal mg/dL (Negative) Urine Leukocyte Esterase Negative /uL (Negative) Urine RBC <1 /hpf (0 - 3) Urine Microscopic WBC < 1 /HPF (0-3) Urine Squamous Epithelial Cells Few /hpf (<5) Urine Bacteria None seen /hpf (None Seen) Urine Hyaline Casts Few /lpf (0 - 2) Urine Granular Casts Few /lpf (0) Urine Creatinine 180.77 mg/dL (30.0-125.0) H Urine Protein/Creatinine Ratio 0.62 Urine Sodium 45 mmol/L (40-220) Urine Glucose Normal mg/dL (Normal) Urine Total Protein 111.5 mg/dL (1-14) H Labs and/or images reviewed: Labs reviewed by me, Image(s) reviewed by me Assessment/Plan Assessment/Plan Impression: -hypertensive crisis -history of CAD, rule out ACS -diabetes mellitus -dyslipidemia -alcoholism -medication noncompliance -hyperkalemia -probable CKD stage IIIA -acute kidney injury, vasomotor nephropathy Plan: Events: Patient's BUN and creatinine worsened despite being on sodium bicarbonate drip overnight. Patient also hyperkalemic. -potassium lowering agents -continue sodium bicarbonate drip -nephrology consultation -renal ultrasound -Continue Toprol-XL 25 mg p.o. daily. Stop hydrochlorothiazide and given low blood pressure -Echocardiogram pending -cardiology consultation: Discussed case -regular insulin sliding scale -repeat BMP in a.m. Total time spent with patient discussing and formulating plan of care: 35 minutes. This medical document was created using an electronic medical record system with [employer] dictation system. Although this document has been carefully reviewed, there may still be some phonetic and typographical errors. These areas are purely typographical due to imperfections of the software programs, and do not reflect any compromise in the patient's medical care. Plan discussed with: Patient, Other (RN) My Orders Orders - SHAKEEL POWELL NP Procedure Category Date Status Time Diphenoxylate/Atropine PHA 12/21/24 In Process Tablet (Lomotil T 14:00 May Shower CRYSTAL 12/21/24 In Process 13:46 *[facility] CONS 12/22/24 Transmitted -[place] 08:49 Kidney US 12/22/24 Resulted 08:49 Sod Chl 0.45% PHA 12/22/24 In Process ([place]... W/Sodium 09:00 Date of Service: Dec 22, 2024 Billing Provider: SHAKEEL POWELL NP Common Visit Codes: [id number] CARE 30-74 MIN SHAKEEL POEWLL NP Dec 22, 2024 11:25
[2024-12-22] MEDS: SODIUM BICARB 50mEq/50ml Vial 50 ML in SOD CHL 0.45% 1,000 ML IV SCH (11:33)
[2024-12-22 12:18] LABS: Hepatitis B Surface Antigen Negative (Negative); Hepatitis C Antibody Negative (Negative)
[2024-12-22] MEDS: IODIXANOL 320MG/ML 100ML BTL IV ONE (13:28)
[2024-12-22] MEDS: ANGIOMAX 250 MG VIAL IV ONE (13:45)
[2024-12-22] MEDS: fentaNYL CITRATE 100 MCG/2 ML VL ONE (13:45)
[2024-12-22] MEDS: LIDOCAINE 2%HCL (LOCAL ANESTH.) INJ 20ML MDV ONE (13:46)
[2024-12-22] MEDS: SODIUM CHL 0.9% 0 ML ONE (13:46)
[2024-12-22] MEDS: MIDAZOLAM HCL 2MG/2ML 2ml VIAL (1mg/ml) ONE (13:46)
--- NOTE | 2024-12-22 14:48 | DVHPN2 ---
Progress Note Date Seen: Dec 22, 2024 Medical Necessity Reason Pt with a Central, PICC or Fol: No Subjective Patient reports: Feels better Other Systems: sp cath Objective vital signs Vital Sign Date Time Temp Pulse Resp B/P (MAP) Pulse Ox O2 Delivery O2 Flow Rate FiO2 12/22/24 13:28 98.3 77 17 157/109 (125) 95 98.3 12/22/24 07:50 Room Air* 0 21 Total Intake and Output 12/21/24 12/21/24 12/22/24 15:00 23:00 07:00 Intake Total 500 ml 1000 ml Balance 500 ml 1000 ml medications Current Medications Medications Dose Ordered Sig/Amber Route Start Time Stop Time Status Last Admin Dose Admin Aspirin 81 mg DAILY PO 12/18/24 10:00 12/22/24 10:15 81 MG Diagnostic Test (Pha) 1 strip IQ4HR 12/17/24 20:00 12/22/24 11:54 1 STRIP Insulin Human Regular IQ4HR SC 12/17/24 20:00 12/22/24 11:53 6 UNITS Dextrose 50 ml UD PRN IV 12/17/24 19:00 Temazepam 15 mg QHSP PRN PO 12/17/24 19:00 Ondansetron HCl 4 mg Q4HP PRN IV 12/17/24 19:00 12/21/24 16:47 4 MG Acetaminophen 650 mg Q6HP PRN PO 12/17/24 19:00 12/18/24 10:22 650 MG Nitroglycerin 0.4 mg Q5MINP PRN SL 12/17/24 19:00 Morphine Sulfate 2 mg Q30M PRN IV 12/17/24 19:00 Hydralazine HCl 10 mg Q6HP PRN IV 12/18/24 08:30 12/18/24 08:52 10 MG Atorvastatin Calcium 40 mg HS PO 12/18/24 22:00 12/21/24 21:14 40 MG Metoprolol Succinate 25 mg DAILY PO 12/18/24 11:45 Hold 12/19/24 11:10 25 MG Thiamine HCl 100 mg DAILY PO 12/19/24 10:00 12/22/24 10:15 100 MG Folic Acid 1 mg DAILY PO 12/19/24 10:00 12/22/24 10:15 1 MG Diphenoxylate HCl/ Atropine 2.5 mg PRN PRN PO 12/21/24 14:00 12/21/24 23:47 2.5 MG Sodium Bicarbonate 50 ml/ Sodium Chloride 1,050 ml @ 100 mls/hr [id number] IV 12/22/24 09:00 12/22/24 11:33 100 MLS/HR Magnesium Sulfate/ Dextrose 100 ml @ 100 mls/hr Q1HR IV 12/22/24 11:00 12/22/24 12:59 UNV Examination: GENERAL:Abnormal, HEENT:Abnormal, LUNGS:Abnormal, CVS:Abnormal, ABDOMEN:Abnormal laboratory and microbiology Laboratory Tests 12/22/24 12:30 12/22/24 06:13 Test 12/22/24 06:13 Range/Units Serum Glucose 135 H 74-106 mg/dL Problem List/Assessment/Plan Problem List/Assessment/Plan totall non compliant pt, heavy etoh abuse, severe chf, high likelihood for graft failure, unpleasant individual, high risk pt , cath sunday etoh abuse severe chf cad s/p cabg non compliance DM CKD hyperkalemia K is improved s/p cath, no intervention, wilder to lad patent needs aggressive HF tx , diuretics, BB, jardiance, consider lavinia/arb if K is stable avoid etoh repeat echo 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 Encourage optimal PO intake 2) Refer to outpatient RD/CD[facility] for diabetes education 3) Follow-up with cardiology and nephrology 4) Follow-up with social security assessor r/t ETOH abuse 5) Continue to monitor I&O, labs, and skin integrity Expected Outcomes/Goals: 1) appetite and labs to improve 2) f/u in 3-5 days Date of Service: Dec 22, 2024 Billing Provider: PATT SEPULVEDA MD Common Visit Codes: NOT BILLABLE PATT SEPULVEDA MD Dec 22, 2024 14:48
--- NOTE | 2024-12-22 15:30 | DVHOP2 ---
Operative Report Operative Report CARDIAC LEAD CASTER HELPER PROCEDURE REPORT [place], [place] Date of Service: 12/22/24 Chemical Strength Tester: Patt Sepulveda MD PROCEDURES PERFORMED: Coronary angiogram, left heart catheterization, conscious sedation administration and supervision, less than 15 minutes sedation 15-30 mins, ; fluoroscopy use and interpretation. sVG angiogram, LEUNG angiogrpahy, iliofemoral angiogram, hemostasis closure device US guided vascular access PREOPERATIVE DIAGNOSES: Abnormal stress test with CCS class 3 angina, POSTOP DIAGNOSIS: abnormal stress DESCRIPTION OF PROCEDURE: The patient or appropriate family signed informed consent understanding the risks, benefits and alternatives of the procedure, they wished to proceed. The patient was brought to the cardiac tutorial laboratory supervisor in n.p.o[place] state. The patient was prepped in a sterile fashion. Sedation was used per cardiac cath protocol. I administered 8 mL of 2% lidocaine to the right groin. . With an antegrade front wall puncture. I cannulated the riR SOCIAL MEDIA MARKETING SPECIALIST using US guidance saved to pacs system and placed a 6- [place] Glidesheath . Next, a - 6FF JL4 JR4, MPL, LCB, were used for coronary angiogram and LVEDP measurement and pressure pullback. At the completion of procedure, all guides and wires were removed, and there were no immediate complications. 6F angioeal used for closure but also performed 20 mins hold. FINDINGS: RCA: Moderate vessel off the right sinus of Valsalva, there is prox to mid RCA VENDOR MANAGER. LEFT MAIN: Moderate size left main, it bifurcates into LAD and circumflex. 70% distal LM stenosis . CIRCUMFLEX: Moderate caliber vessel coming off the left main. prox and mid vessel severe stenosis LAD: LAD is a moderate caliber vessel coming of the left main. 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 patent LEUNG To LAD 2. [place] vessel severe cad 3. SVG to RCA and CX are occluded PLAN: Aggressive risk factor modification and medical management for the patient. asa statin HF meds PATT SEPULVEDA MD Dec 22, 2024 15:30
[2024-12-22] MEDS ORDERED: MAGNESIUM SULFATE 1GM/100ML 100 ML IV SCH (18:00)
[2024-12-23 05:00] VITALS: BP 133/89; PULSE 94; RESP 18; TEMP 98.5; O2SAT 98
[2024-12-23 06:07] LABS: Anion Gap 7 (5-15); Carbon Dioxide 28 mmol/L (20-31); Chloride 103 mmol/L (98-107); Potassium 5.1 mmol/L (3.5-5.1); Sodium 138 mmol/L (136-145)
[2024-12-23 06:08] LABS: Calcium 9.6 mg/dL (8.7-10.4)
[2024-12-23 06:14] LABS: BUN/Creatinine Ratio 25.8 (10.0-20.0)
[2024-12-23 06:19] LABS: Blood Urea Nitrogen 48 mg/dL (9-23); Glucose 143 mg/dL (74-106)
[2024-12-23 08:00] VITALS: PULSE 102
[2024-12-23 09:00] VITALS: BP 135/83; PULSE 94; RESP 20; TEMP 97.9; O2SAT 96
--- NOTE | 2024-12-23 10:20 | DVHPN2 ---
Progress Note Date Seen: Dec 23, 2024 Medical Necessity Reason Pt with a Central, PICC or Fol: No Subjective Patient reports: No new complaints Other Systems: Patient seen and examined by myself today in follow-up Objective vital signs Vital Sign Date Time Temp Pulse Resp B/P (MAP) Pulse Ox O2 Delivery O2 Flow Rate FiO2 12/23/24 05:00 98.5 94 18 133/89 (104) 98 98.5 12/22/24 20:00 Room Air* 0 21 Total Intake and Output 12/22/24 12/22/24 12/23/24 15:00 23:00 07:00 Intake Total 0 ml 900 ml Balance 0 ml 900 ml medications Current Medications Medications Dose Ordered Sig/Amber Route Start Time Stop Time Status Last Admin Dose Admin Aspirin 81 mg DAILY PO 12/18/24 10:00 12/22/24 10:15 81 MG Diagnostic Test (Pha) 1 strip IQ4HR 12/17/24 20:00 12/23/24 04:20 1 STRIP Insulin Human Regular IQ4HR SC 12/17/24 20:00 12/23/24 08:44 2 UNITS Dextrose 50 ml UD PRN IV 12/17/24 19:00 Temazepam 15 mg QHSP PRN PO 12/17/24 19:00 Ondansetron HCl 4 mg Q4HP PRN IV 12/17/24 19:00 12/21/24 16:47 4 MG Acetaminophen 650 mg Q6HP PRN PO 12/17/24 19:00 12/22/24 17:22 650 MG Nitroglycerin 0.4 mg Q5MINP PRN SL 12/17/24 19:00 Morphine Sulfate 2 mg Q30M PRN IV 12/17/24 19:00 Hydralazine HCl 10 mg Q6HP PRN IV 12/18/24 08:30 12/18/24 08:52 10 MG Atorvastatin Calcium 40 mg HS PO 12/18/24 22:00 12/22/24 21:07 40 MG Metoprolol Succinate 25 mg DAILY PO 12/18/24 11:45 12/19/24 11:10 25 MG Thiamine HCl 100 mg DAILY PO 12/19/24 10:00 12/22/24 10:15 100 MG Folic Acid 1 mg DAILY PO 12/19/24 10:00 12/22/24 10:15 1 MG Diphenoxylate HCl/ Atropine 2.5 mg PRN PRN PO 12/21/24 14:00 12/21/24 23:47 2.5 MG Sodium Bicarbonate 50 ml/ Sodium Chloride 1,050 ml @ 100 mls/hr [id number] IV 12/22/24 09:00 12/22/24 11:33 100 MLS/HR Examination: LUNGS:Normal, CVS:Normal, MSK:Normal laboratory and microbiology Laboratory Tests 12/23/24 05:10 12/22/24 06:13 Test 12/23/24 05:10 Range/Units Serum Glucose 143 H 74-106 mg/dL Problem List/Assessment/Plan Problem List/Assessment/Plan Acute kidney injury superimposed Chronic Kidney Disease stage IIIB secondary hemodynamic mediated Uncontrolled diabetes mellitus type 2 Congestive heart failure exacerbation Status post PTCA 12/22 Hyperkalemia due to dietary indiscretion Hypomagnesemia due to magnesium depletion Proteinuria likely due to underlying diabetic nephropathy Medical noncompliance Atrophic left kidney Recommendations Kidney function is improving No urine output charted Hyperkalemia resolved Strict I&Os Kidney ultrasound reported atrophic left kidney We will continue to follow Plan discussed with: Patient My Orders My Orders Orders - MARKOS CLEVELAND MD Procedure Category Date Status Time Renal Specific DIET 12/22/24 Transmitted Diet(Renal) Lunch Dietary Evaluation Review Recommendations by RD: Dietary education by RD, Protein Supplementation Comments: 1) Initiate Nepro Carbsteady @ 8 fl oz qd. Encourage optimal PO intake 2) Refer to outpatient RD/CD[facility] for diabetes education 3) Follow-up with cardiology and nephrology 4) Follow-up with social scientist r/t ETOH abuse 5) Continue to monitor I&O, labs, and skin integrity Expected Outcomes/Goals: 1) appetite and labs to improve 2) f/u in 3-5 days MARKOS CLEVELAND MD Dec 23, 2024 10:20
[2024-12-23] MEDS ORDERED: EMPA1TAB PO (10:29)
[2024-12-23] MEDS ORDERED: LANC-268 XX (10:29)
[2024-12-23] MEDS ORDERED: BLOO1KIT60 XX (10:29)
[2024-12-23] MEDS ORDERED: METO25TA36 PO (10:29)
[2024-12-23] MEDS ORDERED: ATOR20TA50 PO (10:29)
--- NOTE | 2024-12-23 10:36 | DVHDS2 ---
Discharge Summary Date of Admission December 17, 2024 at 18:58 Date of Discharge: Dec 23, 2024 Admitting Diagnosis Chest pain, rule out acute coronary stent Labs/Diagnostic Data: Laboratory Results Test 12/23/24 08:04 12/23/24 05:10 12/22/24 06:13 12/22/24 00:14 POC Glucose 141 mg/dl (70-106) Sodium Level 138 mmol/L (136-145) Potassium Level 5.1 mmol/L (3.5-5.1) Chloride Level 103 mmol/L (98-107) Carbon Dioxide Level 28 mmol/L (20-31) Anion Gap 7 (5-15) Blood Urea Nitrogen 48 mg/dL (9-23) Creatinine 1.86 mg/dL (0.700-1.30) Glomerular Filtration Rate Calc 40 mL/min (>90) BUN/Creatinine Ratio 25.8 (10.0-20.0) Serum Glucose 143 mg/dL (74-106) Calcium Level 9.6 mg/dL (8.7-10.4) White Blood Count 6.5 10^3/uL (4.4-10.8) Red Blood Count 4.82 10^6/uL (4.5-5.90) Hemoglobin 15.4 g/dL (13.5-17.5) Hematocrit 45.4 % (41.0-53.0) Mean Corpuscular Volume 94.3 fL (80.0-100.0) Mean Corpuscular Hemoglobin 32.0 pg (28.0-32.0) Mean Corpuscular Hemoglobin Concent 33.9 g/dL (32.0-36.0) Red Cell Distribution Width 15.0 % (11.8-14.3) Platelet Count 167 10^3/uL (140-450) Mean Platelet Volume 8.8 fL (6.9-10.8) Neutrophils (%) (Auto) 55.1 % (37.0-80.0) Lymphocytes (%) (Auto) 28.8 % (10.0-50.0) Monocytes (%) (Auto) 12.7 % (0.0-12.0) Eosinophils (%) (Auto) 3.1 % (0.0-7.0) Basophils (%) (Auto) 0.3 % (0.0-2.0) Neutrophils # (Auto) 3.6 10 ^3/uL (1.6-8.6) Lymphocytes # (Auto) 1.9 10 ^3/uL (0.4-5.4) Monocytes # (Auto) 0.8 10 ^3/uL (0-1.3) Eosinophils # (Auto) 0.2 10 ^3/uL (0-0.8) Basophils # (Auto) 0 10 ^3/uL (0-0.2) Nucleated Red Blood Cells 0.2 % Uric Acid 11.2 mg/dL (3.7-9.2) Phosphorus Level 4.8 mg/dL (2.4-5.1) Magnesium Level 2.1 mg/dL (1.6-2.6) B-Type Natriuretic Peptide 128.31 pg/mL (0-100) Vitamin D 25-Hydroxy 17.1 ng/mL (30.0-100) Parathyroid Hormone (Intact) 77.8 pg/mL (18.4-80.1) Hepatitis B Surface Antigen Negative (Negative) Hepatitis C Antibody Negative (Negative) Urine Color Yellow (Yellow) Urine Clarity Clear (Clear) Urine pH 5.0 (5.0-9.0) Urine Specific [place] 1.022 (1.001-1.035) Urine Protein 1+ (Negative) Urine Ketones Negative (Negative) Urine Blood Negative /uL (Negative) Urine Nitrite Negative (Negative) Urine Bilirubin Negative (Negative) Urine Urobilinogen Normal mg/dL (Negative) Urine Leukocyte Esterase Negative /uL (Negative) Urine RBC <1 /hpf (0 - 3) Urine Microscopic WBC < 1 /HPF (0-3) Urine Squamous Epithelial Cells Few /hpf (<5) Urine Bacteria None seen /hpf (None Seen) Urine Hyaline Casts Few /lpf (0 - 2) Urine Granular Casts Few /lpf (0) Urine Creatinine 180.77 mg/dL (30.0-125.0) Urine Protein/Creatinine Ratio 0.62 Urine Sodium 45 mmol/L (40-220) Urine Glucose Normal mg/dL (Normal) Urine Total Protein 111.5 mg/dL (1-14) Urine Opiates Screen Neg (NEGATIVE) Urine Fentanyl Screen Neg (NEGATIVE) Urine Barbiturates Screen Neg (NEGATIVE) Urine Phencyclidine Screen Neg (NEGATIVE) Urine Amphetamines Screen Neg (NEGATIVE) Urine Benzodiazepines Screen Neg (NEGATIVE) Urine Cocaine Screen Neg (NEGATIVE) Urine Cannabinoids Screen Neg (NEGATIVE) Test 12/21/24 06:51 12/17/24 19:32 12/17/24 16:30 Prothrombin Time 10.2 sec (9.3-11.8) Prothrombin Time INR 0.96 (0.9-1.15) Activated Partial Thromboplast Time 21.9 SEC (24.5-34.5) Total Bilirubin 0.7 mg/dL (0.2-1.0) Aspartate Amino Transferase (AST) 16 U/L (13-40) Alanine Aminotransferase (ALT) 11 U/L (7-40) Alkaline Phosphatase 74 U/L (46-116) Total Protein 7.0 g/dL (5.7-8.2) Albumin 4.1 g/dL (3.2-4.8) Troponin I High Sensitivity 44 ng/L (</=54) Hemoglobin A1c > 14.0 % A1C (<5.7) Lactic Acid Level 1.6 mmol/L (0.4-2.0) Triglycerides Level 277 mg/dL (< 150) Cholesterol Level 289 mg/dL (< 200) LDL Cholesterol 208 mg/dL (< 100) HDL Cholesterol 61 mg/dL (40-59) Lipase 81 U/L (12-53) Thyroid Stimulating Hormone (TSH) 2.86 uIU/mL (0.55-4.78) Other Laboratory Tests 12/23/24 05:10 12/22/24 06:13 Brief Hx & Hospital Course: History of Present Illness 64-year-old male presents for evaluation of chest pain. The patient was seen by his primary care provider today. Patient reports not taking any of his medications for the past six months due to lack of insurance. Today while at the PCP office patient develop some left-sided chest pain which he states has been ongoing for the past couple of months. Patient was advised to present to the emergency department for further evaluation. Currently denies chest pain or shortness for breath. Course of hospitalization Cardiology consultation was obtained. Patient underwent echocardiogram as well as nuclear stress test which was positive for reversible ischemia. Patient underwent left heart catheterization yesterday with findings of multivessel disease as well as occlusion of graft to RCA and probable circumflex artery. Echeverria graft is patent. Patient also had issues with acute kidney injury with hyperkalemia. Nephrology consultation was obtained. Patient's potassium has normalized with IV hydration as well as potassium lowering agents. Patient is chest pain free. Blood sugars have been controlled. Long discussion was made with the patient regarding findings of labs as well as left heart catheterization results. Patient was agreeable to discharge plan with follow up with Nephrology, Cardiology, as well as PCP. JIA inhibitors will be held secondary to renal function. He will be discharged with Toprol-XL 25 mg p.o. daily, atorvastatin 20 mg p.o. q.h.s., as well as Jardiance 10 mg p.o. daily. Given the patient has been without any O2 supplementation or signs of overt pulmonary vascular congestion, Lasix will be held at this time. Patient will also be provided glucometer for which he is to check his blood sugars twice a day. Physical examination General: Alert and Oriented x3. No acute distress. Well-nourished. Eyes: EOMI. Anicteric. HENT: Moist mucous membranes. Lungs: Clear to auscultation bilaterally. No accessory muscle use. Cardiovascular: Regular rate and rhythm. No murmur. No JVD. Abdomen: Soft, non-tender and non-distended. No palpable masses. Extremities: No edema. Non-tender. Skin: No rashes or lesions. Warm. Neurologic: No focal neurological deficits. CN II-XII grossly intact, but not individually tested. Psychiatric: Cooperative. Appropriate mood and affect. Total time spent with patient discussing and formulating plan of care: 35 minutes. This medical document was created using an electronic medical record system with [employer] dictation system. Although this document has been carefully reviewed, there may still be some phonetic and typographical errors. These areas are purely typographical due to imperfections of the software programs, and do not reflect any compromise in the patient's medical care. Consults/Reason for consult Cardiology: CAD with ACS Nephrology: Acute kidney injury with hyperkalemia Operations or Procedures 12/22/2024: Left heart catheterization Condition at Discharge: Poor Final Diagnosis/Problems List Multivessel coronary disease with previous bypass grafts occluded Secondary diagnosis: -hypertensive crisis -history of CAD, rule out ACS -diabetes mellitus -dyslipidemia -alcoholism -medication noncompliance -hyperkalemia -probable CKD stage IIIA -acute kidney injury, vasomotor nephropathy Discharge Disposition: Home Discharge Instruct/Medications Diet: Consistent carbohydrate, Cardiac 2g Na,low cholest Activity: No Restrictions, As Tolerated Follow Up/Referral: Follow up with Nephrology in 1-2 weeks Follow up with Cardiology in 1-2 weeks Follow up PCP at next available appointment Medications: Jardiance 10 mg p.o. daily Toprol-XL 25 mg p.o. daily Atorvastatin 20 mg p.o. q.h.s. 36 Discharge Statement: "Patient was advised to return to the ER or call 911 if any headaches, dizziness, shortness of breath, chest pain, abdominal pain, bleeding, fevers, or worsening of medical condition. Patient was counseled about treatment plan, medications, possible side effects, patientverbalized understanding. All questions were answered to the best of my ability. This discharge took greater then 30 minutes in planning, reviewing documentation, counseling the patient, and discussing with other team members." ASSESSMENT ASSESSMENT Assessment Multivessel coronary disease with previous bypass grafts occluded Date of Service: Dec 23, 2024 Billing Provider: SHAKEEL POWELL NP Common Visit Codes: 24513-VJK/OBS DISCH DAY >30min SHAKEEL POWELL NP Dec 23, 2024 10:35
[2024-12-23 11:22] VITALS: BP 135/83; PULSE 94; RESP 20; TEMP 97.9; O2SAT 94
[2024-12-23 13:00] VITALS: BP 144/81; PULSE 92; RESP 20; TEMP 97.9; O2SAT 96
--- NOTE | 2024-12-24 13:29 | DVHSR ---
APPROVED REPORT EXAM: Two-dimensional and M-mode echocardiogram with Doppler and color Doppler. Blood Pressure: 139/94 mmHg INDICATION Chest Pain Surgery/Intervention CABG: RISK FACTORS Obesity: Height: 6'0, Weight: 195 DIMENSIONS LVDd4.0 (3.8-5.7cm)LA (2D)3.9 (1.9-4.0cm)Aortic Root3.6 (2.0-3.7cm) LVDs2.4 (2.5-4.0cm)LA (MM) (1.9-4.0cm)Aortic Cusp Exc1.1 (1.5-2.0cm) EF (%) 47.0 (55-70%)Rt. Atrium3.8 (1.9-4.0cm)Asc. Aorta cm IVSd1.2 (0.7-1.1cm)RV (D)4.0 (1.8-2.4cm) PWd1.5 (0.7-1.1cm) Mitral Valve MitralMitral Stenosis E wave0.56m/sMV Mean GR.mmHg A wave0.95m/sMV Peak GR.mmHg E/A ratio0.62D MVAcm2 DECEL [id number] 1/2 [place] Aortic Valve Aortic ValveAortic Stenosis V10.80m/Fadumo Mean GR.4mmHg V21.33m/Fadumo Peak GR.7mmHg LVOT Diameter2.5 (1.8-2.4cm)Doppler AVA2.95cm2 Pulmonic Valve V20.78m/s Other Information Quality : Technically LimitedRhythm : Technically limited study due to body habitus.patient position. Conclusion Sinus rhythm. Concentric LVH with RV enlargement. Thickening and calcification of the aortic leaflets without diminished excursion. The mitral and tri cuspid are structurally normal. There appears to be a trileaflet aortic valve. Left ventricular function is preserved. 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 Left ventricular function is diminished. EF is about 40% with global hypokinesis and impaired diastolic relaxation. Dopplers unremarkable. No pericardial effusion masses or vegetations.
== END 2024-12-23 13:15 | disposition home or self-care (01) | DRG 191 ==
LOC: ER 16:03 → OVERFLOW 18:58 → TELE-EAST 12-18 16:04
PROVIDERS: ADMIT Nurse Practitioner Acute Care; ATTEND Nurse Practitioner Acute Care
PROC: 4A023N7 Measurement of Cardiac Sampling and Pressure, Left Heart, Percutaneous Approach (ICD-10-PCS; principal; 2024-12-22)
PROC: B2121ZZ Fluoroscopy of Single Coronary Artery Bypass Graft using Low Osmolar Contrast (ICD-10-PCS; 2024-12-22)
PROC: B41G1ZZ Fluoroscopy of Left Lower Extremity Arteries using Low Osmolar Contrast (ICD-10-PCS; 2024-12-22)
PROC: B2111ZZ Fluoroscopy of Multiple Coronary Arteries using Low Osmolar Contrast (ICD-10-PCS; 2024-12-22)
DX: I24.9 Acute ischemic heart disease, unspecified (principal); N17.0 Acute kidney failure with tubular necrosis; I50.21 Acute systolic (congestive) heart failure; E11.22 Type 2 diabetes mellitus with diabetic chronic kidney disease; I13.0 Hypertensive heart and chronic kidney disease with heart failure and stage 1 through stage 4 chronic kidney disease, or unspecified chronic kidney disease; E11.65 Type 2 diabetes mellitus with hyperglycemia; Z95.1 Presence of aortocoronary bypass graft; N18.31 Chronic kidney disease, stage 3a; F10.20 Alcohol dependence, uncomplicated; I45.10 Unspecified right bundle-branch block; E87.5 Hyperkalemia; I16.9 Hypertensive crisis, unspecified; N26.1 Atrophy of kidney (terminal); E87.6 Hypokalemia; I25.10 Atherosclerotic heart disease of native coronary artery without angina pectoris; E83.42 Hypomagnesemia; E78.5 Hyperlipidemia, unspecified; Z79.82 Long term (current) use of aspirin; Z91.148 Patient's other noncompliance with medication regimen for other reason; Z87.891 Personal history of nicotine dependence; Z79.899 Other long term (current) drug therapy; Z79.84 Long term (current) use of oral hypoglycemic drugs; Z59.71 Insufficient health insurance coverage; I25.2 Old myocardial infarction
CPT/HCPCS: 36415; 71045; 71250; 76775; 78452; 80048; 80053; 80061; 80307; 81001; 82306; 82570; 82962; 83036; 83605; 83690; 83735; 83880; 83970; 84100; 84132; 84156; 84300; 84443; 84484; 84550; 85025; 85610; 85730; 86803; 86850; 86900; 86901; 87340; 93005; 93017; 93306; 93459; 94640; 96374; 96375; 99152; 99291; G0378; J1815; J2250; J2405; Q9967

== ENCOUNTER 2025-05-01 13:59 | Inpatient (IN) | payer MEDICAID ==
[~2025-05-01] VITALS: Ht 182.9 cm; Wt 95.6 kg
[~2025-05-01 13:59] MED LIST: ATOR20TA50 PO; BLOO1KIT60 XX; EMPA1TAB PO; ERGO1CAP12 PO; LANC-268 XX; METF-372 PO; METO25TA36 PO; OMEP1CAP70 PO
[2025-05-01 15:41] VITALS: PULSE 84; O2SAT 95
[2025-05-01] MEDS: VANCOMYCIN 1.5GM/250ML 250 ML IV ONE (16:15)
[2025-05-01] MEDS: SODIUM CHLORIDE 0.9% 1,000 ML IV ONE (16:16)
[2025-05-01] MEDS: PIPERACILLIN-TAZOB 3.375GM 100 ML IV ONE (16:16)
[2025-05-01] MEDS: fentaNYL CITRATE 100 MCG/2 ML VL IV ONE (16:50)
[2025-05-01 17:17] LABS: Hematocrit 43.0 % (41.0-53.0); Hemoglobin 14.6 g/dL (13.5-17.5); Mean Corpuscular Hemoglobin 30.9 pg (28.0-32.0); Mean Corpuscular Volume 91.1 fL (80.0-100.0); Nucleated Red Blood Cells % 0.0 %
[2025-05-01 17:26] LABS: Calcium 9.3 mg/dL (8.7-10.4)
[2025-05-01 17:32] LABS: Anion Gap 21 (5-15); BUN/Creatinine Ratio 16.5 (10.0-20.0)
[2025-05-01 17:34] LABS: Alkaline Phosphatase 113 U/L (46-116); Bilirubin, Total 0.5 mg/dL (0.2-1.0); Blood Urea Nitrogen 51 mg/dL (9-23); Carbon Dioxide 12 mmol/L (20-31); Chloride 98 mmol/L (98-107); Glucose 233 mg/dL (74-106); Lipase 58 U/L (12-53); Potassium 4.9 mmol/L (3.5-5.1); Sodium 131 mmol/L (136-145); Total Protein 7.7 g/dL (5.7-8.2)
[2025-05-01 17:39] LABS: Alanine Aminotransferase 13 U/L (7-40); Albumin 3.8 g/dL (3.2-4.8)
--- NOTE | 2025-05-01 19:19 | DVH ---
EXAM: CT CT R FOOT WO CONTRAST INDICATION: Rule out osteomyelitis TECHNIQUE: Axial images of right foot without contrast have been obtained along with coronal and sagi ttal reformatted images. All CT scans at this facility use dose modulation, iterative reconstruction, and/or weight based dosing when appropriate to reduce radiation dose to as low as reasonably achieva ble. COMPARISON: None FINDINGS: BONES: No CT evidence of an acute fracture or aggressive osseous lesion. No abnormal osseous erosion, lucency, sclerosis to suggest osteomyelitis. Posterior calcaneal tuberosity spurring. Sclerosis of t he medial hallux sesamoid. MUSCLES: No abnormal attenuation. JOINT SPACES: No joint effusion. TENDONS/LIGAMENTS: Intact. OTHER: Subcutaneous adipose tissue edema along the plantar aspect of the midfoot to hindfoot. No nelson inable fluid collection. Vascular calcifications. IMPRESSION: 1. No CT evidence of osteomyelitis. 2. Subcutaneous adipose tissue edema along the plantar aspect of the midfoot to hindfoot. 3. Maintain elevated suspicious for osteomyelitis given the extensive soft tissue emphysema. Correlat e with ESR /CRP. Consider further evaluation with MRI.
--- NOTE | 2025-05-01 20:12 | ED.PDOC ---
Musculoskeletal HPI Comments This patient is a 64-year-old male who arrives the ED today for evaluation of significant right foot and right lower extremity wound concerns. Patient has a long history of what wounds including this particular wound. Patient states he has been managed get at home, but the wound has now gotten out of control. Patient states that has been painful, significant and malodorous. Patient denies any fever nausea or vomiting. Patient appeared to be in poor overall health at time of evaluation. Was mildly hypotensive on arrival. Chief Complaint: Lower Extremity Time Seen by MD: 15:02 Primary Care Provider: AYE FRANCISCO Reviewed Notes: Nurses Notes Allergies: Coded Allergies: NO KNOWN ALLERGIES (Unverified , 12/17/24) Home Meds Active Scripts Blood Glucose Monitoring Suppl (D-Care Glucometer Kit/Glu W/Device) 1 Kit Kit, KIT XX BID, #1 Prov:SHAKEEL POWELL [employer] 12/23/24 Lancets (Accu-Chek Softclix Lancet) Lancets Mis, BOX XX, #1 Prov:SHAKEEL POWELL [employer]OCIATE 12/23/24 Empagliflozin (Jardiance) 10 Mg Tab, 10 MG PO DAILY for 30 Days, #30 TAB Prov:SHAKEEL POWELL [employer] SAL[employer]OCIATE 12/23/24 Atorvastatin Calcium (ATORVASTATIN CALCIUM) 20 Mg Tab, 1 TAB PO DAILY, #30 TAB 5 Refills Prov:SHAKEEL POWELL [employer] SALES [employer]OCIATE 12/23/24 Metoprolol Succinate (Toprol Xl) 25 Mg Tab, 1 TAB PO DAILY, #30 TAB 5 Refills Prov:SHAKEEL POWELL NP 12/23/24 Information Source: Patient, Friend Mode of Arrival: Wheelchair Location: Right Extremity Location: Foot, Leg Timing: Months Prehospital treatment: Treatment Severity: Severe Able to Move Extremity: No Bear Weight: No Pain: Moderate Hand Dominance: Right Mechanism: Spontaneous Circumstances: Spontaneous Onset of Symptoms: Spontaneous Symptoms: Swelling, Pain DVT Risk Factors: NONE Past Medical History PAST MEDICAL HISTORY: DM Surgical History: Denies all surgeries Family History Family History: Reviewed,noncontributory to illness, No family hx of Cancer, No family hx of DM, No family hx of Heart kathy, No family hx of HTN, No family hx ofKidney kathy, No family hx of Liver kathy, No family hx of Lung kathy, No family hx of Stroke Social History Smoker: Non-Smoker Alcohol: Denies ETOH Use Drugs: Denies Drug Use Lives In: Home Constitutional: reports: weakness; denies: chills, diaphoresis, fatigue, fever, malaise, sweats, others EENTM: denies: blurred vision, double vision, ear bleeding, ear discharge, ear drainage, ear pain, ear ringing, eye pain, eye redness, hearing loss, mouth pain, mouth swelling, nasal discharge, nose bleeding, nose congestion, nose pain, photophobia, tearing, throat pain, throat swelling, voice changes, others Respiratory: denies: cough, hemoptysis, orthopnea, SOB at rest, shortness of breath, SOB with excertion, stridor, wheezing, others Cardiovascular: denies: chest pain, dizzy spells, diaphoresis, Dyspnea on exertion, edema, irregular heart beat, left arm pain, lightheadedness, palpitations, PND, syncope, others Gastrointestinal: denies: abdomen distended, abdominal pain, blood streaked bowels, constipated, diarrhea, dysphagia, difficulty swallowing, hematemesis, melena, nausea, poor appetite, poor fluid intake, rectal bleeding, rectal pain, vomiting, others Genitourinary: denies: burning, dysuria, flank pain, frequency, hematuria, incontinence, penile discharge, penile sore, pain, testicle pain, testicle swelling, urgency, others Neurological: denies: dizziness, fainting, headache, left sided numbness, left sided weakness, numbness, paresthesia, pre-existing deficit, right sided numbness, right sided weakness, seizure, speech problems, tingling, tremors, weakness, others Musculoskeletal: reports: others (Right lower extremity and right foot wound); denies: back pain, gout, joint pain, joint swelling, muscle pain, muscle stiffness, neck pain Integumetry: denies: bruises, change in color, change in hair/nails, dryness, laceration, lesions, lumps, rash, wounds, others Allergic/Immunocompromised: denies: Difficulty Healing, Frequent Infections, Hives, Itching, others Hematologic/Lymphatic: denies: anemia, blood clots, easy bleeding, easy bruising, swollen glands, others Endocrine: denies: excessive hunger, excessive sweating, excessive thirst, excessive urination, flushing, intolerance to cold, intolerance to heat, unexplained weight gain, unexplained weight loss, others Psychiatric: denies: anxiety, bipolar disorder, depression, hopeless, panic disorder, schizophrenia, sleepless, suicidal, others Physical Exam General Appearance: Moderate Distress (Moderate distress at time of evaluation due to foot leg wounds.), Normal HEENT: Normal ENT Inspection, Pharynx Normal, TMs Normal Neck: Full Range of Motion, Non-Tender, Normal, Normal Inspection Respiratory: Chest Non-Tender, Lungs Clear, No Accessory Muscle Use, No Respiratory Distress, Normal Breath Sounds Cardiovascular: No Edema, No JVD, No Murmur, No Gallop, Normal Peripheral Pulses, Regular Rate/Rhythm Breast Exam: Deferred Gastrointestinal: No Organomegaly, Non Tender, No Pulsatile Mass, Normal Bowel Sounds, Soft Genitalia: Deferred Pelvic: Deferred Rectal: Deferred Extremities: Other (Patient displays a large and malodorous assess or at the lateral aspect of the right pedal surface extending up into the right lateral foot. Patient has erythema throughout the lower extremity without any lymphangitis. Wound is very malodorous and appears to be personally necrotic. Possible osteomyelitis.) Neurologic: Alert Cerebellar Function: NOT DONE Reflexes: NOT DONE Skin: Dry, Normal Color, Warm Lymphatic: No Adenopathy Was a procedure done? Was a procedure done?: No Differential Diagnosis EXT Differential Diagnosis: Cellulitis, Other (Osteomyelitis) X-Ray, Labs, Meds, VS Vital Signs Date Time Temp Pulse Resp B/P (MAP) Pulse Ox O2 Delivery O2 Flow Rate FiO2 05/01/25 19:07 97.6 80 19 97/61 (73) 96 97.6 05/01/25 17:00 84 16 111/61 (78) 94 05/01/25 16:50 94/60 05/01/25 15:41 84 95 Room Air* 0 21 05/01/25 15:17 97.8 80 18 102/65 (77) 94 97.8 05/01/25 14:08 98.2 94 16 100/57 96 98.2 Lab Test 05/01/25 17:08 05/01/25 15:30 Range/Units White Blood Count 15.8 H 4.4-10.8 10^3/uL Red Blood Count 4.72 4.5-5.90 10^6/uL Hemoglobin 14.6 13.5-17.5 g/dL Hematocrit 43.0 41.0-53.0 % Mean Corpuscular Volume 91.1 80.0-100.0 fL Mean Corpuscular Hemoglobin 30.9 28.0-32.0 pg Mean Corpuscular Hemoglobin Concent 33.9 32.0-36.0 g/dL Red Cell Distribution Width 14.4 H 11.8-14.3 % Platelet Count 223 140-450 10^3/uL Mean Platelet Volume 8.2 6.9-10.8 fL Neutrophils (%) (Auto) 86.2 H 37.0-80.0 % Lymphocytes (%) (Auto) 3.9 L 10.0-50.0 % Monocytes (%) (Auto) 9.5 0.0-12.0 % Eosinophils (%) (Auto) 0.0 0.0-7.0 % Basophils (%) (Auto) 0.4 0.0-2.0 % Neutrophils # (Auto) 13.6 H 1.6-8.6 10 ^3/uL Lymphocytes # (Auto) 0.6 0.4-5.4 10 ^3/uL Monocytes # (Auto) 1.5 H 0-1.3 10 ^3/uL Eosinophils # (Auto) 0 0-0.8 10 ^3/uL Basophils # (Auto) 0.1 0-0.2 10 ^3/uL Nucleated Red Blood Cells 0.0 % Sodium Level 131 L 136-145 mmol/L Potassium Level 4.9 3.5-5.1 mmol/L Chloride Level 98 98-107 mmol/L Carbon Dioxide Level 12 L 20-31 mmol/L Anion Gap 21 H 5-15 Blood Urea Nitrogen 51 H 9-23 mg/dL Creatinine 3.10 H 0.700-1.30 mg/dL Glomerular Filtration Rate Calc 22 >90 mL/min BUN/Creatinine Ratio 16.5 10.0-20.0 Serum Glucose 233 H 74-106 mg/dL Calcium Level 9.3 8.7-10.4 mg/dL Total Bilirubin 0.5 0.2-1.0 mg/dL Aspartate Amino Transferase (AST) 20 13-40 U/L Alanine Aminotransferase (ALT) 13 7-40 U/L Alkaline Phosphatase 113 46-116 U/L Troponin I High Sensitivity 22 26 </=54 ng/L Total Protein 7.7 5.7-8.2 g/dL Albumin 3.8 3.2-4.8 g/dL Lipase 58 H 12-53 U/L Lactic Acid Level 1.8 0.4-2.0 mmol/L B-Type Natriuretic Peptide 440.74 0-100 pg/mL Current Medications Medications (Trade) Dose Ordered Sig/Amber Route Start Time Stop Time Status Last Admin Fentanyl Citrate 25 mcg ONCE ONCE IV 05/01/25 15:15 05/01/25 15:16 DC 05/01/25 16:50 Vancomycin HCl 250 ml @ 166.667 mls/hr ONCE ONCE IV 05/01/25 15:15 05/01/25 16:44 DC 05/01/25 16:15 Piperacillin Sod/ Tazobactam Sod 100 ml @ 100 mls/hr ONCE ONCE IV 05/01/25 15:15 05/01/25 16:14 DC 05/01/25 16:16 Sodium Chloride 1,000 ml @ 250 mls/hr Q4H ONCE IV 05/01/25 15:15 05/01/25 19:14 DC 05/01/25 16:16 X-Ray, Labs, Meds, VS Comment All studies performed the ED were evaluated by me personally. Serum laboratories confirmed a leukocytosis, hyperglycemia and mild to moderately elevated lipase level. CT of the foot for ruled out any osteomyelitis, but did suggest maintaining an elevated suspicion for osteomyelitis given the extensive soft tissue emphysema. Patient will be admitted for management of his significant foot wound as well as blood sugar and possible pancreatic evaluation . Time of 1ST Reevaluation: 20:05 Reevaluation 1ST: Improved Consultation: PCP Patient Education/Counseling: Diagnosis, Treatment Family Education/Counseling: Diagnosis, Treatment Sepsis Sepsis Reasesment Focused Exam Orders: Laboratory Tests 05/01/25 15:30: Lactic Acid Level 1.8 Recent Procedure: No On Antibiotic Therapy: No Respiratory Rate >20: No Heart Rate >90: No Temp<36 C (96.8 F) or >38.3 C: No SBP <90 or MAP <65 mmHG: No New Acute Mental Status Change: No Is the patient on CPAP, BIPAP,: No IV fluid given: No Departure 1 Departure Time of Disposition: 20:11 Impression: Primary Impression: Diabetic foot ulcer Additional Impressions: Cellulitis Hyperglycemia due to diabetes mellitus Elevated lipase Disposition: ADMITTED INPATIENT Condition: Fair Discharged With: Self, Friend Critical Care Note Critical Care Time?: No Stability Stability form required: No Heart Score Heart Score: Heart Score Response (Comments) Value History N/A 0 EKG N/A 0 Age N/A 0 Risk Factors N/A 0 Troponin N/A 0 Total 0 LUISITO FUCHS PAC May 01, 2025 20:12
[2025-05-01] MEDS ORDERED: VANCOMYCIN PER PHARMACY 0 MG IV SCH (20:45)
[2025-05-01] MEDS ORDERED: DEXTROSE (50%) 50ML SYRG IV PRN (20:45)
[2025-05-01] MEDS ORDERED: DOCUSATE SOD 100 MG CAP PO PRN (20:45)
[2025-05-01] MEDS ORDERED: ONDANSETRON HCL 4 MG/2 ML VIAL IV PRN (20:45)
--- NOTE | 2025-05-01 21:36 | DVHHP2 ---
History of Present Illness Reason for Visit: Diabetes foot ulcer History of Present Illness The patient is a 64-year-old male with past medical history of diabetes mellitus, hyperlipidemia, and hypertension who presented to [facility] ED for evaluation of right lower extremity nonhealing wound. Patient states he has been managing his wound at home, but the wound has now gotten out of control, very painful, and significant malodorous. Patient was seen and evaluated in the ED, laboratory data shows WBC 15.8, platelets 223, sodium 131, potassium 4.5, BUN 51, creatinine 3.10, GFR 22, glucose 223, BNP 440.72, troponin 22, lipase 58, blood pressure 97/61, heart rate 80, temperature 97.6 F, O2 saturation 96% on room air. Right foot CT showed no evidence of osteomyelitis; subcutaneous adipose tissue edema along the plantar aspect of the midfoot to hindfoot; maintain elevated suspicious for osteomyelitis given the extensive soft tissue edema correlate with ESR/CRP. Patient was started on IV antibiotic regimen vancomycin, please see medication orders section in the computer. On my assessment, patient denied chest pain, no dizziness, headache, diaphoresis, shortness of breaths, no abdominal pain, diarrhea, nausea, vomiting, fever, chills. Patient was admitted for further evaluation and medical management. Past Medical History DM, HTN, HLD Past Surgical History Denies all surgeries Family History Reviewed, noncontributory to the management of this case. Past Social History The patient lives at home, denies smoking, alcohol or illicit drugs abuse. Review of Systems Constitutional: Yes: Weakness; No: Fever, Chills, Sweats, Malaise, Other Eyes: No: Pain, Vision change, Conjunctivae inflammation, Eyelid inflammation, Other, Redness ENT: No: Ear pain, Ear discharge, Nose pain, Nose discharge, Nose congestion, Mouth pain, Mouth swelling, Throat pain, Throat swelling, Other Respiratory: No: Cough, Dry, Shortness of breath, SOB with excertion, Wheezing, Hemoptysis, Pleuritic Pain, Sputum, Wheezing, Other Cardiovascular: No: Chest Pain, Palpitations, Orthopnea, Paroxysmal Noc. Dyspnea, Edema, Lt Headedness, Other Gastrointestinal: No: Nausea, Vomiting, Abdominal Pain, Diarrhea, Constipation, Melena, Hematochezia, Other Genitourinary: No Dysuria, No Frequency, No Incontinence, No Hematuria, No Retention, No Other Musculoskeletal: other (Right lower extremity and right foot wound); No: neck pain, shoulder pain, arm pain, back pain, hand pain, leg pain, foot pain Skin: No: Rash, Lesions, Jaundice, Bruising, Other Neurological: No: Weakness, Numbness, Incoordination, Change in speech, Confusion, Seizures, Other Allergies: Coded Allergies: NO KNOWN ALLERGIES (Unverified , 12/17/24) Medications Current Medications Medications Dose Ordered Sig/Amber Route Start Time Stop Time Status Last Admin Dose Admin Vancomycin HCl 0 ml @ 0 mls/hr UD IV 05/01/25 20:45 UNV Piperacillin Sod/ Tazobactam Sod 100 ml @ 25 mls/hr Q8HR IV 05/01/25 22:00 Diagnostic Test (Pha) 1 strip IQ4HR 05/02/25 00:00 Insulin Human Regular IQ4HR SC 05/02/25 00:00 Dextrose 50 ml UD PRN IV 05/01/25 20:45 Acetaminophen/ Hydrocodone Bitart 1 tab Q4HP PRN PO 05/01/25 20:45 Ondansetron HCl 4 mg Q4HP PRN IV 05/01/25 20:45 Docusate Sodium 100 mg BIDPRN PRN PO 05/01/25 20:45 Acetaminophen 650 mg Q6HP PRN PO 05/01/25 20:45 Furosemide 20 mg DAILY IV 05/02/25 10:00 Carvedilol 3.125 mg Q12HR PO 05/01/25 22:00 Atorvastatin Calcium 10 mg HS PO 05/01/25 22:00 Exam Vital Signs Vital Signs Date Time Temp Pulse Resp B/P (MAP) Pulse Ox O2 Delivery O2 Flow Rate FiO2 05/01/25 21:29 97.6 83 18 105/65 (78) 97 97.6 05/01/25 15:41 Room Air* 0 21 General Appearance: Alert, Oriented X3, Cooperative, No acute distress HEENT: Atraumatic, PERRLA, EOMI, Mucous membr. moist/pink Respiratory: Clear to auscultation, Normal air movement Cardiovascular: Regular rate, Normal S1, Normal S2, No murmurs Abdominal: Normal bowel sounds, Soft, No tenderness, No hepatospenomegaly, No masses Extremities: No clubbing, No cyanosis, No edema, Normal pulses, Other (Right lower extremity and right foot wound) Skin: No rashes Neuro: Normal speech, Normal tone, Sensation intact, Cranial nerves 3-12 NL, Reflexes 2+, Other (Weakness) Psych/Mental Status: Mental status NL, Mood NL Labs/Xrays Labs Test 05/01/25 17:08 05/01/25 15:30 Range/Units White Blood Count 15.8 H 4.4-10.8 10^3/uL Red Blood Count 4.72 4.5-5.90 10^6/uL Hemoglobin 14.6 13.5-17.5 g/dL Hematocrit 43.0 41.0-53.0 % Mean Corpuscular Volume 91.1 80.0-100.0 fL Mean Corpuscular Hemoglobin 30.9 28.0-32.0 pg Mean Corpuscular Hemoglobin Concent 33.9 32.0-36.0 g/dL Red Cell Distribution Width 14.4 H 11.8-14.3 % Platelet Count 223 140-450 10^3/uL Mean Platelet Volume 8.2 6.9-10.8 fL Neutrophils (%) (Auto) 86.2 H 37.0-80.0 % Lymphocytes (%) (Auto) 3.9 L 10.0-50.0 % Monocytes (%) (Auto) 9.5 0.0-12.0 % Eosinophils (%) (Auto) 0.0 0.0-7.0 % Basophils (%) (Auto) 0.4 0.0-2.0 % Neutrophils # (Auto) 13.6 H 1.6-8.6 10 ^3/uL Lymphocytes # (Auto) 0.6 0.4-5.4 10 ^3/uL Monocytes # (Auto) 1.5 H 0-1.3 10 ^3/uL Eosinophils # (Auto) 0 0-0.8 10 ^3/uL Basophils # (Auto) 0.1 0-0.2 10 ^3/uL Nucleated Red Blood Cells 0.0 % Sodium Level 131 L 136-145 mmol/L Potassium Level 4.9 3.5-5.1 mmol/L Chloride Level 98 98-107 mmol/L Carbon Dioxide Level 12 L 20-31 mmol/L Anion Gap 21 H 5-15 Blood Urea Nitrogen 51 H 9-23 mg/dL Creatinine 3.10 H 0.700-1.30 mg/dL Glomerular Filtration Rate Calc 22 >90 mL/min BUN/Creatinine Ratio 16.5 10.0-20.0 Serum Glucose 233 H 74-106 mg/dL Calcium Level 9.3 8.7-10.4 mg/dL Total Bilirubin 0.5 0.2-1.0 mg/dL Aspartate Amino Transferase (AST) 20 13-40 U/L Alanine Aminotransferase (ALT) 13 7-40 U/L Alkaline Phosphatase 113 46-116 U/L Troponin I High Sensitivity 22 </=54 ng/L Total Protein 7.7 5.7-8.2 g/dL Albumin 3.8 3.2-4.8 g/dL Lipase 58 H 12-53 U/L Lactic Acid Level 1.8 0.4-2.0 mmol/L B-Type Natriuretic Peptide 440.74 0-100 pg/mL PATIENT: JOHANA OBRIEN JACCT: [id number] UNIT: [id number] : 1960 LOC: ER ROOM / BED: / AGE / SEX: 64 / M ADM STATUS: REG ER SERVICE 55 ORDERING PHYSICIAN: LUISITO FUCHS PAC PROCEDURE(s): RFTCT - CT R FOOT WO CONTRAST REASON: Rule out osteomyelitis ORDER NUMBER(s): [id number], ACCESSION NUMBER(s): [id number] EXAM: CT CT R FOOT WO CONTRAST INDICATION: Rule out osteomyelitis TECHNIQUE: Axial images of right foot without contrast have been obtained along with coronal and sagittal reformatted images. All CT scans at this facility use dose modulation, iterative reconstruction, and/or weight based dosing when appropriate to reduce radiation dose to as low as reasonably achievable. COMPARISON: None FINDINGS: BONES: No CT evidence of an acute fracture or aggressive osseous lesion. No abnormal osseous erosion, lucency, sclerosis to suggest osteomyelitis. Posterior calcaneal tuberosity spurring. Sclerosis of the medial hallux sesamoid. MUSCLES: No abnormal attenuation. JOINT SPACES: No joint effusion. TENDONS/LIGAMENTS: Intact. OTHER: Subcutaneous adipose tissue edema along the plantar aspect of the midfoot to hindfoot. No drainable fluid collection. Vascular calcifications. IMPRESSION: 1. No CT evidence of osteomyelitis. 2. Subcutaneous adipose tissue edema along the plantar aspect of the midfoot to hindfoot. 3. Maintain elevated suspicious for osteomyelitis given the extensive soft tissue emphysema. Correlate with ESR /CRP. Consider further evaluation with MRI. SEPSIS Sepsis Screen Date sepsis recognized/suspect: May 01, 2025 Time Sepsis recognized/suspect: 1411 Recent Procedure: No On Antibiotic Therapy: No Respiratory Rate >20: No Heart Rate >90: No Temp<36 C (96.8 F) or >38.3 C: No SBP <90 or MAP <65 mmHG: No New Acute Mental Status Change: No Is the patient on CPAP, BIPAP,: No IV fluid challenge completed?: No Physician Orders Heplock Iv (05/01/25 ) Blood Culture (05/01/25 15:09) Electrocardigram (05/01/25 15:09) Continuous Ekg Monitoring 08,12,16,20,00,04 (05/01/25 15:09) Wound Culture W/ Gs (05/01/25 15:09) Ct R Foot Wo Contrast (05/01/25 16:56) *Dr. [facility] (05/01/25 20:40) Vancomycin Per Pharmacy (05/01/25 20:45) Piperacillin-Tazob 3.375gm (Zosyn 3.375g (05/01/25 22:00) Consistent Carb(Ccho)Diabetes (05/02/25 Breakfast) Glucose Blood (Accu-Chek Comfort Curve T (05/02/25 00:00) Insulin R (Human) (Insulin R) (05/02/25 00:00) Dextrose 50% Syringe (05/01/25 20:45) Allergies (05/01/25 20:40) Code Status (05/01/25 20:40) Oxygen Per Hour (05/01/25 20:40) Hydrocodone-Acet 5/325mg Tab (Tornado 5/32 (05/01/25 20:45) Ondansetron Hcl (Zofran) (05/01/25 20:45) Docusate Sodium Capsule (Colace Capsule) (05/01/25 20:45) Complete Blood Count (05/02/25 04:00) Comprehensive Metabolic Panel (05/02/25 04:00) Condition: Serious (05/01/25 20:40) Acetaminophen Tablet (Tylenol Tablet) (05/01/25 20:45) Bedrest With Bathroom Privileg (05/01/25 20:40) Sequential Compression Device (05/01/25 ) Furosemide Injection (Lasix Injection) (05/02/25 10:00) Carvedilol Tablet (Coreg Tablet) (05/01/25 22:00) Atorvastatin (Lipitor) (05/01/25 22:00) Vancomycin,Random (05/02/25 04:00) Vital Signs Date Time Temp Pulse Resp B/P (MAP) Pulse Ox O2 Delivery O2 Flow Rate FiO2 05/01/25 21:29 97.6 83 18 105/65 (78) 97 97.6 05/01/25 19:07 97.6 80 19 97/61 (73) 96 97.6 05/01/25 17:00 84 16 111/61 (78) 94 05/01/25 16:50 94/60 05/01/25 15:41 84 95 Room Air* 0 21 05/01/25 15:17 97.8 80 18 102/65 (77) 94 97.8 05/01/25 14:08 98.2 94 16 100/57 96 98.2 Laboratory Tests Test 05/01/25 15:30 05/01/25 17:08 Lactic Acid Level 1.8 mmol/L (0.4-2.0) White Blood Count 15.8 10^3/uL (4.4-10.8) H Medications Medications Dose Ordered Sig/Amber Route Start Time Stop Time Status Last Admin Dose Admin Fentanyl Citrate 25 mcg ONCE ONCE IV 05/01/25 15:15 05/01/25 15:16 DC 05/01/25 16:50 25 MCG Piperacillin Sod/ Tazobactam Sod 100 ml @ 100 mls/hr ONCE ONCE IV 05/01/25 15:15 05/01/25 16:14 DC 05/01/25 16:16 100 MLS/HR Sodium Chloride 1,000 ml @ 250 mls/hr Q4H ONCE IV 05/01/25 15:15 05/01/25 19:14 DC 05/01/25 16:16 250 MLS/HR Vancomycin HCl 250 ml @ 166.667 mls/hr ONCE ONCE IV 05/01/25 15:15 05/01/25 16:44 DC 05/01/25 16:15 166.667 MLS/HR Assessment/Plan Assessment/Plan Diabetes mellitus with foot ulcer Elevated lipase Cellulitis of right foot Hyperglycemia due to diabetes mellitus Acute exacerbation of congestive heart failure Plan 1. Admit to telemetry unit 2. Breathing treatment 3. Pain control management 4. IV antibiotic management 5. Management of fluids and electrolytes 6. Consultation for food consultant/Nephrology/ wound care 7. Diagnostic test right foot CT 8. DVT prophylaxis on aspirin 9. Repeat labs CBC, CMP in a.m. 10. Home medication reviewed and reconciled 11. Continue with current medical management 12. Treatment plan discussed with patient and RN. Patient verbalized understanding. Plan discussed with: Patient, Other (RN) My Orders Orders - LIZZETTE RAMOS DNP Procedure Category Date Status Time *Dr. Alyssa Angel -[place] CONS 05/01/25 Transmitted Constanza 20:40 Vancomycin Per PHA 05/01/25 Pending Pharmacy 20:45 Piperacillin-Tazob PHA 05/01/25 In Process 3.375gm (Zosyn 3.375g 22:00 Consistent DIET 05/02/25 Transmitted Carb(Ccho)Diabetes Breakfast Glucose Blood PHA 05/02/25 In Process (Accu-Chek Comfort 00:00 Insulin R (Human) PHA 05/02/25 In Process (Insulin R) 00:00 Dextrose 50% Syringe PHA 05/01/25 In Process 20:45 Allergies CRYSTAL 05/01/25 In Process 20:40 Code Status CODE 05/01/25 Transmitted 20:40 Oxygen Per Hour RT 05/01/25 Transmitted 20:40 Hydrocodone-Acet PHA 05/01/25 In Process 5/325mg Tab (Tornado 20:45 Ondansetron Hcl PHA 05/01/25 In Process (Zofran) 20:45 Docusate Sodium PHA 05/01/25 In Process Capsule (Colace 20:45 Complete Blood Count LAB 05/02/25 Verified 04:00 Comprehensive LAB 05/02/25 Verified Metabolic Panel 04:00 Condition: Serious CRYSTAL 05/01/25 In Process 20:40 Acetaminophen Tablet PHA 05/01/25 In Process (Tylenol Tablet) 20:45 Bedrest With Bathroom CRYSTAL 05/01/25 In Process Privileg 20:40 Sequential CRYSTAL 05/01/25 In Process Compression Device Furosemide Injection PHA 05/02/25 In Process (Lasix Injection) 10:00 Carvedilol Tablet PHA 05/01/25 In Process (Coreg Tablet) 22:00 Atorvastatin (Lipitor) PHA 05/01/25 In Process 22:00 Vancomycin,Random LAB 05/02/25 Verified 04:00 Problem List: (1) Diabetes mellitus with foot ulcer (2) Elevated lipase (3) Cellulitis of right foot (4) Hyperglycemia due to diabetes mellitus (5) Acute exacerbation of congestive heart failure Date of Service: May 01, 2025 Billing Provider: LIZZETTE RAMOS DNP Common Visit Codes: [id number] INP/OBS CARE (HIGH) LIZZETTE RAMOS DNP May 01, 2025 21:36
[2025-05-01] MEDS: FUROSEMIDE 20 MG/2 ML VIAL IV ONE (21:43)
[2025-05-01] MEDS ORDERED: NITROGLYCERIN 0.4 MG SL TAB SL PRN (21:45)
[2025-05-01] MEDS ORDERED: MORPHINE SULFATE INJ 2 MG/ml SYRG IV PRN (21:45)
[2025-05-01] MEDS: PIPERACILLIN-TAZOB 3.375GM 100 ML IV SCH (22:07)
[2025-05-01] MEDS: HYDROcodone-ACET 5/325MG TAB PO PRN (22:08)
[2025-05-01] MEDS: CARVEDILOL 3.125 MG TAB PO SCH (22:09)
[2025-05-01] MEDS: ATORVASTATIN 20 MG TAB PO SCH (22:09)
[2025-05-02] MEDS: InsuLIN REG 1unit/0.01ml Soln (100units/ml) SC SCH
[2025-05-02 05:44] LABS: Hematocrit 41.7 % (41.0-53.0); Hemoglobin 14.1 g/dL (13.5-17.5); Mean Corpuscular Hemoglobin 30.9 pg (28.0-32.0); Mean Corpuscular Volume 91.2 fL (80.0-100.0); Nucleated Red Blood Cells % 0.0 %
[2025-05-02 06:03] LABS: Alanine Aminotransferase 14 U/L (7-40); Albumin 3.6 g/dL (3.2-4.8); Anion Gap 16 (5-15); BUN/Creatinine Ratio 19.9 (10.0-20.0); Calcium 9.0 mg/dL (8.7-10.4); Potassium 3.9 mmol/L (3.5-5.1); Total Protein 7.2 g/dL (5.7-8.2)
[2025-05-02 06:04] LABS: Bilirubin, Total 0.4 mg/dL (0.2-1.0)
[2025-05-02 06:13] LABS: Alkaline Phosphatase 117 U/L (46-116); Blood Urea Nitrogen 59 mg/dL (9-23); Carbon Dioxide 17 mmol/L (20-31); Chloride 98 mmol/L (98-107); Glucose 263 mg/dL (74-106); Sodium 131 mmol/L (136-145)
--- NOTE | 2025-05-02 06:36 | DVHINCON2 ---
Date of service: May 02, 2025 Referring Physician Lili Valadez Reason for Consultation YO History of Present Illness 64 Y/OM with history of CKD IIIa, atrophic left kidney, DM type II, systolic CHF (EF: 40%), CAD s/p CABG, and alcohol abuse presented with chief complaint of non-healing right foot wound. Patient is afebrile, initial HR 94, SBP in 90-100s mmHg. labs show WBC: 15.8, Cr: 3.1 mg/dl (Baseline Cr is 1.5 mg/dl), Na: 131 mmol/l, K: 3.9 mmol/l. A1C > 14%. Patient was given IV fluids, IV antibiotics, and loop diuretics. CT does not show evidence of osteomyelitis. Nephrology consulted for YO Past Medical History CKD IIIa DM type II Systolic CHF CAD Alcohol abuse Past Surgical History CABG Allergies: Coded Allergies: NO KNOWN ALLERGIES (Unverified , 12/17/24) Home Meds Active Scripts Blood Glucose Monitoring Suppl (D-Care Glucometer Kit/Glu W/Device) 1 Kit Kit, KIT XX BID, #1 Prov:SHAKEEL POWELL STEAM HAND 12/23/24 Lancets (Accu-Chek Softclix Lancet) Lancets Mis, BOX XX, #1 Prov:SHAKEEL POWELL STE[employer] HAND 12/23/24 Empagliflozin (Jardiance) 10 Mg Tab, 10 MG PO DAILY for 30 Days, #30 TAB Prov:SHAKEEL POWELL STE[employer] HAND 12/23/24 Atorvastatin Calcium (ATORVASTATIN CALCIUM) 20 Mg Tab, 1 TAB PO DAILY, #30 TAB 5 Refills Prov:SHAKEEL POWELL STEAM HAND 12/23/24 Metoprolol Succinate (Toprol Xl) 25 Mg Tab, 1 TAB PO DAILY, #30 TAB 5 Refills Prov:SHAKEEL POWELL STEAM HAND 12/23/24 Current Medications Current Medications Medications (Trade) Dose Ordered Sig/Amber Route PRN Reason Start Time Stop Time Status Last Admin Vancomycin HCl 0 ml @ 0 mls/hr UD IV 05/01/25 20:45 UNV Piperacillin Sod/ Tazobactam Sod 100 ml @ 25 mls/hr Q8HR IV 05/01/25 22:00 05/02/25 05:41 Diagnostic Test (Pha) (Accu-Chek Comfort Curve T) 1 strip IQ4HR 05/02/25 00:00 05/02/25 05:41 Insulin Human Regular (InsuLIN R) IQ4HR SC 05/02/25 00:00 05/02/25 05:52 Dextrose 50 ml UD PRN IV Blood Sugar LESS THAN 60 05/01/25 20:45 Acetaminophen/ Hydrocodone Bitart ([place] 5/325MG Tab) 1 tab Q4HP PRN PO MODERATE PAIN (4-6 PAIN SCALE) 05/01/25 20:45 05/01/25 22:08 Ondansetron HCl (Zofran) 4 mg Q4HP PRN IV NAUSEA / VOMITING 05/01/25 20:45 Docusate Sodium (Colace Capsule) 100 mg BIDPRN PRN PO FOR CONSTIPATION 05/01/25 20:45 Acetaminophen (Tylenol Tablet) 650 mg Q6HP PRN PO PAIN SCALE 1-3 OR TEMP>100.4 05/01/25 20:45 Furosemide (Lasix Injection) 20 mg DAILY IV 05/02/25 10:00 Carvedilol (Coreg Tablet) 3.125 mg Q12HR PO 05/01/25 22:00 05/01/25 22:09 Atorvastatin Calcium (Lipitor) 10 mg HS PO 05/01/25 22:00 05/01/25 22:09 Nitroglycerin (Ntrostat Sublingual) 0.4 mg Q5MINP PRN SL FOR CHEST PAIN 05/01/25 21:45 Morphine Sulfate 2 mg Q30M PRN IV FOR CHEST PAIN 05/01/25 21:45 Review of Systems as per HPI, all other systems were reviewed and are negative H&P Exam Vital Signs/I&O Vital Sign Date Time Temp Pulse Resp B/P (MAP) Pulse Ox O2 Delivery O2 Flow Rate FiO2 05/01/25 23:29 80 96/53 05/01/25 23:09 97.7 18 96 97.7 05/01/25 15:41 Room Air* 0 21 Physical Exam Gen: NAD, AAOx3 HEENT: NC,AT Cardiac: RRR, no murmur Lungs: CTA b/l Abd: soft, no tenderness Ext: no edema Labs/Diagnostic Data Labs/Diagnostic Data Laboratory Tests Test 05/02/25 05:48 05/02/25 04:38 05/02/25 01:14 05/01/25 17:08 Range/Units POC Glucose 275 H 259 H 70-106 mg/dl White Blood Count 13.0 H 15.8 H 4.4-10.8 10^3/uL Red Blood Count 4.57 4.72 4.5-5.90 10^6/uL Hemoglobin 14.1 14.6 13.5-17.5 g/dL Hematocrit 41.7 43.0 41.0-53.0 % Mean Corpuscular Volume 91.2 91.1 80.0-100.0 fL Mean Corpuscular Hemoglobin 30.9 30.9 28.0-32.0 pg Mean Corpuscular Hemoglobin Concent 33.9 33.9 32.0-36.0 g/dL Red Cell Distribution Width 14.3 14.4 H 11.8-14.3 % Platelet Count 216 223 140-450 10^3/uL Mean Platelet Volume 8.4 8.2 6.9-10.8 fL Neutrophils (%) (Auto) 80.5 H 86.2 H 37.0-80.0 % Lymphocytes (%) (Auto) 8.1 L 3.9 L 10.0-50.0 % Monocytes (%) (Auto) 10.6 9.5 0.0-12.0 % Eosinophils (%) (Auto) 0.3 0.0 0.0-7.0 % Basophils (%) (Auto) 0.5 0.4 0.0-2.0 % Neutrophils # (Auto) 10.5 H 13.6 H 1.6-8.6 10 ^3/uL Lymphocytes # (Auto) 1.1 0.6 0.4-5.4 10 ^3/uL Monocytes # (Auto) 1.4 H 1.5 H 0-1.3 10 ^3/uL Eosinophils # (Auto) 0 0 0-0.8 10 ^3/uL Basophils # (Auto) 0.1 0.1 0-0.2 10 ^3/uL Nucleated Red Blood Cells 0.0 0.0 % Erythrocyte Sedimentation Rate 80 H 0-20 mm/hr Sodium Level 131 L 131 L 136-145 mmol/L Potassium Level 3.9 4.9 3.5-5.1 mmol/L Chloride Level 98 98 98-107 mmol/L Carbon Dioxide Level 17 L 12 L 20-31 mmol/L Anion Gap 16 H 21 H 5-15 Blood Urea Nitrogen 59 H 51 H 9-23 mg/dL Creatinine 2.96 H 3.10 H 0.700-1.30 mg/dL Glomerular Filtration Rate Calc 23 22 >90 mL/min BUN/Creatinine Ratio 19.9 16.5 10.0-20.0 Serum Glucose 263 H 233 H 74-106 mg/dL Calcium Level 9.0 9.3 8.7-10.4 mg/dL Total Bilirubin 0.4 0.5 0.2-1.0 mg/dL Aspartate Amino Transferase (AST) 22 20 13-40 U/L Alanine Aminotransferase (ALT) 14 13 7-40 U/L Alkaline Phosphatase 117 H 113 46-116 U/L C-Reactive Protein High Sensitivity > 20.00 H <1.0 mg/dL Total Protein 7.2 7.7 5.7-8.2 g/dL Albumin 3.6 3.8 3.2-4.8 g/dL Random Vancomycin Level 16.9 H 5-10 ug/mL Troponin I High Sensitivity 22 </=54 ng/L Lipase 58 H 12-53 U/L Test 05/01/25 15:30 Range/Units Lactic Acid Level 1.8 0.4-2.0 mmol/L Troponin I High Sensitivity 26 </=54 ng/L B-Type Natriuretic Peptide 440.74 0-100 pg/mL Assessment YO, secondary to Sepsis Sepsis secondary to right foot cellulitis and infected non-healing wound CKD IIIa (Baseline Cr 1.5 mg/dl) Acute on chronic systolic CHF (EF: 40%) CAD s/p CABG h/o alcohol abuse Hyponatremia Plan: Continue Lasix 20 mg IV daily continue broad spectrum IV antibiotics f/u blood cultures Continue Coreg 3.125 mg PO BID daily BMP Strict I&Os Plan discussed with: Patient MISAEL PIEDRA MD May 02, 2025 06:36
[2025-05-02 08:53] VITALS: BP 96/54; PULSE 80; PULSE 83; RESP 18; TEMP 97.8; O2SAT 95
[2025-05-02 09:26] VITALS: BP 96/54; PULSE 86; RESP 20; TEMP 97.8; O2SAT 95
[2025-05-02] MEDS: FUROSEMIDE 20 MG/2 ML VIAL IV SCH (10:00)
[2025-05-02 12:59] VITALS: BP 105/57; PULSE 81; RESP 20; TEMP 98; O2SAT 96
[2025-05-02 17:48] VITALS: BP 104/63; PULSE 88; RESP 20; TEMP 97.9; O2SAT 96
--- NOTE | 2025-05-02 18:21 | DVHPN2 ---
Assessment/Plan Assessment/Plan progress note 64 M with IDDM, CKD 3, HFrEF 40%, CAD s/p CABG, alcohol use admitted for R foot wound seen today. need MRI, empiric abx. r/o OM. pending podiatry physical exam aox4 comfortable on RA clear breath sounds s1 s2 rrr abdomen soft no LE edema R foot wound, extensive cellulitis, puss seen labs ekg imaging reviewed assessment and plan IDDM uncontrolled sepsis YO VMN On CKD HFrEF 40$ chornic systolic HF CAD s/p CABG alcohol use r/o OM non healing ulcer HAGMA basal bolus ISS IVF vanc and Zosyn podiatry consult MRI renal rec appreciated diet diabetic dvt ppx lovenox full code Plan discussed with: Patient Date of Service: May 02, 2025 Billing Provider: BHARTI MAIN MD Common Visit Codes: [id number] INP/OBS CARE(HIGH) BHARTI MAIN MD May 02, 2025 18:20
[2025-05-02 21:00] VITALS: BP 111/70; PULSE 102; RESP 18; TEMP 98.1; O2SAT 95
[2025-05-02] MEDS: ACCU-CHEK COMFORT CURVE STRIP VI SCH ×2 (22:03)
[2025-05-02] MEDS: INSULIN LANTUS (GLARGINE) 1 /0.01ml (100units/ml) SC SCH (22:21)
[2025-05-03] VITALS (7 sets, daily range): BP systolic 93–156; BP diastolic 61–89; PULSE 88–102; RESP 18–20; TEMP 96–99.6; O2SAT 90–96
[2025-05-03] MEDS: INSULIN LISPRO (HUMAN) 100 UNITS/ML ML SC SCH ×2 (05:26→05:27)
[2025-05-03 06:33] LABS: Hematocrit 40.6 % (41.0-53.0); Hemoglobin 13.9 g/dL (13.5-17.5); Mean Corpuscular Hemoglobin 31.0 pg (28.0-32.0); Mean Corpuscular Volume 90.4 fL (80.0-100.0); Nucleated Red Blood Cells % 0.0 %
[2025-05-03 06:45] LABS: Chloride 102 mmol/L (98-107); Potassium 4.6 mmol/L (3.5-5.1)
[2025-05-03 06:46] LABS: Anion Gap 16 (5-15)
[2025-05-03 06:51] LABS: BUN/Creatinine Ratio 30.3 (10.0-20.0); Calcium 8.5 mg/dL (8.7-10.4); Carbon Dioxide 18 mmol/L (20-31); Sodium 136 mmol/L (136-145)
[2025-05-03 06:52] LABS: Blood Urea Nitrogen 73 mg/dL (9-23); Glucose 238 mg/dL (74-106)
--- NOTE | 2025-05-03 10:40 | DVH ---
CLINICAL INDICATION: osteo COMPARISON: CT CT R FOOT WO CONTRAST on DOS: 05/01/25 TECHNIQUE: Multiplanar, multisequence MRI of the right foot was performed without intravenous contras t. Contrast: None. INTERPRETATION: Bones: No evidence of acute fracture. There is no marrow replacing lesion. Soft tissues: The Lisfranc ligament is intact. The medial and lateral collateral ligaments are intac t at the metatarsophalangeal joints. The flexor and extensor tendons are intact. There is no planta r plate tear. There are low signal intensity foci noted in the plantar forefoot laterally, deep to t he 5th toe corresponding to subcutaneous emphysema on recent CT. No fluid collection. IMPRESSION: 1. Cellulitis and subcutaneous emphysema in the lateral forefoot deep to the 5th metatarsal bone. 2. No MR evidence of osteomyelitis in the right foot. 3. Edema in the intrinsic muscles of the foot may reflect myositis or denervation.
--- NOTE | 2025-05-03 15:13 | DVHPN2 ---
Progress Note - Dictate Date Seen: May 03, 2025 Medical Necessity Reason Pt with a Central, PICC or Fol: No Subjective no new symptoms vital signs Vital Sign Date Time Temp Pulse Resp B/P (MAP) Pulse Ox O2 Delivery O2 Flow Rate FiO2 05/03/25 12:29 98.9 88 20 93/61 (72) 92 98.9 05/03/25 05:50 Nasal Cannula* 2 28 Total Intake and Output 05/02/25 05/02/25 05/03/25 15:00 23:00 07:00 Intake Total 100 ml 750 ml 0 ml Output Total 100 ml Balance 100 ml 750 ml -100 ml medications Current Medications Medications Dose Ordered Sig/Amber Route Start Time Stop Time Status Last Admin Dose Admin Vancomycin HCl 0 ml @ 0 mls/hr UD IV 05/01/25 20:45 Piperacillin Sod/ Tazobactam Sod 100 ml @ 25 mls/hr Q8HR IV 05/01/25 22:00 05/03/25 14:25 25 MLS/HR Dextrose 50 ml UD PRN IV 05/01/25 20:45 Acetaminophen/ Hydrocodone Bitart 1 tab Q4HP PRN PO 05/01/25 20:45 05/03/25 10:40 1 TAB Acetaminophen 650 mg Q6HP PRN PO 05/01/25 20:45 Carvedilol 3.125 mg Q12HR PO 05/01/25 22:00 05/03/25 10:40 3.125 MG Atorvastatin Calcium 10 mg HS PO 05/01/25 22:00 05/02/25 22:09 10 MG Insulin Glargine 15 units HS SC 05/02/25 22:00 05/02/25 22:21 15 UNITS Insulin Human Lispro 5 units [facility] 05/03/25 07:00 05/03/25 12:08 5 UNITS Diagnostic Test (Pha) 1 strip ACHS 05/02/25 22:00 05/03/25 11:30 1 STRIP Insulin Human Lispro AC UT 05/03/25 07:00 05/03/25 11:30 1 UNITS objective Gen: NAD, AAOx3 HEENT: NC,AT Cardiac: RRR, no murmur Lungs: CTA b/l Abd: soft, no tenderness Ext: no edema laboratory and microbiology Laboratory Tests 05/03/25 05:31 Test 05/03/25 05:31 Range/Units Serum Glucose 238 H 74-106 mg/dL Assessment/Plan YO, secondary to Sepsis Sepsis secondary to right foot cellulitis and infected non-healing wound CKD IIIa (Baseline Cr 1.5 mg/dl) Acute on chronic systolic CHF (EF: 40%) CAD s/p CABG h/o alcohol abuse Hyponatremia Plan: Lasix prn s/p Lasix 20 mg IV x1 yesterday GFR improving continue broad spectrum IV antibiotics f/u blood cultures Continue Coreg 3.125 mg PO BID daily BMP Strict I&Os Plan discussed with: Patient MISAEL PIEDRA MD May 03, 2025 15:13
[2025-05-03] MEDS: VANCOMYCIN 1GM/250ML KIT 250 ML IV ONE (18:23)
--- NOTE | 2025-05-03 20:03 | DVHPN2 ---
Assessment/Plan Assessment/Plan progress note 64 M with IDDM, CKD 3, HFrEF 40%, CAD s/p CABG, alcohol use admitted for R foot wound seen today MRI ruled out OM. pending pod for debridement. switch abx to cefepime and dapto, avoid neprhotoxins physical exam aox4 comfortable on RA clear breath sounds s1 s2 rrr abdomen soft no LE edema R foot wound, extensive cellulitis, puss seen labs ekg imaging reviewed assessment and plan IDDM uncontrolled sepsis YO VMN On CKD HFrEF 40$ chornic systolic HF CAD s/p CABG alcohol use ruled out OM non healing ulcer HAGMA basal bolus ISS IVF vanc and Zosyn dc, switch to cefepime and dapto podiatry consult MRI renal rec appreciated trend cr diet diabetic dvt ppx lovenox full code Plan discussed with: Patient My Orders Orders - BHARTI MAIN MD Procedure Category Date Status Time Urinalysis LAB 05/03/25 Verified 19:59 Urine Bacterial SANDRA 05/03/25 Verified Culture 19:59 Cefepime 2gm Extended PHA 05/04/25 Verified Infusion 10:00 Daptomycin 6mg/Kg PHA 05/04/25 Verified 10:00 Date of Service: May 03, 2025 Billing Provider: BHARTI MAIN MD Common Visit Codes: [id number] INP/OBS CARE(HIGH) BHARTI MAIN MD May 03, 2025 20:03
[2025-05-03] MEDS: ACETAMINOPHEN 325 MG TAB PO PRN (22:05)
[2025-05-04] VITALS (8 sets, daily range): BP systolic 94–160; BP diastolic 55–90; PULSE 81–100; RESP 18–20; TEMP 97.1–99.5; O2SAT 91–96
[2025-05-04] MEDS: MELATONIN 5 MG TAB PO ONE (06:55)
[2025-05-04 09:07] LABS: Hematocrit 42.4 % (41.0-53.0); Hemoglobin 14.3 g/dL (13.5-17.5); Mean Corpuscular Hemoglobin 30.8 pg (28.0-32.0); Mean Corpuscular Volume 91.1 fL (80.0-100.0); Nucleated Red Blood Cells % 0.0 %
[2025-05-04 09:15] LABS: Chloride 104 mmol/L (98-107); Potassium 4.1 mmol/L (3.5-5.1); Sodium 138 mmol/L (136-145)
[2025-05-04 09:16] LABS: Anion Gap 11 (5-15); Carbon Dioxide 23 mmol/L (20-31)
[2025-05-04 09:17] LABS: Calcium 9.2 mg/dL (8.7-10.4)
[2025-05-04 09:22] LABS: BUN/Creatinine Ratio 30.4 (10.0-20.0); Blood Urea Nitrogen 69 mg/dL (9-23); Glucose 152 mg/dL (74-106)
[2025-05-04] MEDS: CEFEPIME 2GM/50ML NS 50 ML IV SCH (10:26)
--- NOTE | 2025-05-04 11:57 | DVHCONRES ---
Date Seen: May 04, 2025 Reason for Consultation Right foot wound History of Present Illness The patient is a 64-year-old male with past medical history of diabetes mellitus, hyperlipidemia, and hypertension who presented to [facility] ED for evaluation of right lower extremity nonhealing wound. Patient st ates he has been managing his wound at home, but the wound has now gotten out of control, very painful, and significant malodorous. Patient was seen and evaluated in the ED, laboratory data shows WBC 15.8, platelets 223, sodium 131, potassium 4.5, BUN 51, creatinine 3.10, GFR 22, glucose 223, BNP 440.72, troponin 22, lipase 58, blood pressure 97/61, heart rate 80, temperature 97.6 F, O2 saturation 96% on room air. Right foot CT showed no evidence of osteomyelitis; subcutaneous adipose tissue edema along the plantar aspect of the midfoot to hindfoot; maintain elevated suspicious for osteomyelitis given the extensive soft tissue edema correlate with ESR/CRP. Patient was started on IV antibiotic regimen vancomycin, please see medication orders section in the c omputer. On my assessment, patient denied chest pain, no dizziness, headache, diaphoresis, shortness of breaths, no abdominal pain, diarrhea, nausea, vomiting, fever, chills. Patient was admitted for further evaluation and medical management. Past Medical History See H&P Past Surgical History See H&P Family History: Patient reports no known family medical history. Allergies: Coded Allergies: NO KNOWN ALLERGIES (Unverified , 12/17/24) Home Meds Active Scripts Blood Glucose Monitoring Suppl (D-Care Glucometer Kit/Glu W/Device) 1 Kit Kit, KIT XX BID, #1 Prov:SHAKEEL POWELL MECHANICAL STRIPER 12/23/24 Lancets (Accu-Chek Softclix Lancet) Lancets Mis, BOX XX, #1 Prov:SHAKEEL POWELL MECHANICAL STRIPER 25 Empagliflozin (Jardiance) 10 Mg Tab, 10 MG PO DAILY for 30 Days, #30 TAB Prov:SHAKEEL POWELL MECHANICAL STRIPER 12/23/24 Atorvastatin Calcium (ATORVASTATIN CALCIUM) 20 Mg Tab, 1 TAB PO DAILY, #30 TAB 5 Refills Prov:SHAKEEL POWELL MECHANICAL STRIPER 12/23/24 Metoprolol Succinate (Toprol Xl) 25 Mg Tab, 1 TAB PO DAILY, #30 TAB 5 Refills Prov:SHAKEEL POWELL MECHANICAL STRIPER 12/23/24 Current Medications Current Medications Medications (Trade) Dose Ordered Sig/Amber Route PRN Reason Start Time Stop Time Status Last Admin Cefepime HCl 50 ml @ 12.5 mls/hr DAILY IV 05/04/25 10:00 05/04/25 10:26 Daptomycin 400 mg/ Sodium Chloride 50 ml @ 100 mls/hr DAILY IV 05/04/25 10:00 Vital Signs Vital Signs Date Time Temp Pulse Resp B/P (MAP) Pulse Ox O2 Delivery O2 Flow Rate FiO2 05/04/25 10:49 101/56 05/04/25 09:00 97.1 81 19 91 97.1 05/03/25 05:50 Nasal Cannula* 2 28 Physical Exam Dermatological: Skin is dry with mild erythema and some maceration around the wound site No gross deformities noted Mild non-pitting edema present bilaterally Right plantar foot with fluctuance and cellulitis and purulence Vascular: Dorsalis pedis and posterior tibial pulses are 1+ bilaterally Capillary refill is under 2 seconds Skin temperature is warm bilaterally Neurologic: Protective sensation is absent on the plantar forefoot bilaterally Monofilament testing reveals decreased sensation in multiple plantar sites Musculoskeletal: Range of motion at the ankle and MTP joints is within normal limits. Strength is 5/5 in all tested muscle groups. Gait is antalgic due to offloading of the affected limb. Labs/Diagnostic Data Labs Test 05/04/25 10:35 05/04/25 08:40 05/02/25 04:38 05/01/25 17:08 Range/Units POC Glucose 155 H 70-106 mg/dl White Blood Count 16.3 H 4.4-10.8 10^3/uL Red Blood Count 4.65 4.5-5.90 10^6/uL Hemoglobin 14.3 13.5-17.5 g/dL Hematocrit 42.4 41.0-53.0 % Mean Corpuscular Volume 91.1 80.0-100.0 fL Mean Corpuscular Hemoglobin 30.8 28.0-32.0 pg Mean Corpuscular Hemoglobin Concent 33.7 32.0-36.0 g/dL Red Cell Distribution Width 14.3 11.8-14.3 % Platelet Count 289 140-450 10^3/uL Mean Platelet Volume 7.7 6.9-10.8 fL Neutrophils (%) (Auto) 83.7 H 37.0-80.0 % Lymphocytes (%) (Auto) 7.0 L 10.0-50.0 % Monocytes (%) (Auto) 8.3 0.0-12.0 % Eosinophils (%) (Auto) 0.7 0.0-7.0 % Basophils (%) (Auto) 0.3 0.0-2.0 % Neutrophils # (Auto) 13.6 H 1.6-8.6 10 ^3/uL Lymphocytes # (Auto) 1.1 0.4-5.4 10 ^3/uL Monocytes # (Auto) 1.3 0-1.3 10 ^3/uL Eosinophils # (Auto) 0.1 0-0.8 10 ^3/uL Basophils # (Auto) 0.1 0-0.2 10 ^3/uL Nucleated Red Blood Cells 0.0 % Sodium Level 138 136-145 mmol/L Potassium Level 4.1 3.5-5.1 mmol/L Chloride Level 104 98-107 mmol/L Carbon Dioxide Level 23 20-31 mmol/L Anion Gap 11 5-15 Blood Urea Nitrogen 69 H 9-23 mg/dL Creatinine 2.27 H 0.700-1.30 mg/dL Glomerular Filtration Rate Calc 31 >90 mL/min BUN/Creatinine Ratio 30.4 H 10.0-20.0 Serum Glucose 152 H 74-106 mg/dL Calcium Level 9.2 8.7-10.4 mg/dL Random Vancomycin Level 18.6 H 5-10 ug/mL Erythrocyte Sedimentation Rate 80 H 0-20 mm/hr Hemoglobin A1c 9.9 H <5.7 % A1C Total Bilirubin 0.4 0.2-1.0 mg/dL Aspartate Amino Transferase (AST) 22 13-40 U/L Alanine Aminotransferase (ALT) 14 7-40 U/L Alkaline Phosphatase 117 H 46-116 U/L C-Reactive Protein High Sensitivity > 20.00 H <1.0 mg/dL Total Protein 7.2 5.7-8.2 g/dL Albumin 3.6 3.2-4.8 g/dL Troponin I High Sensitivity 22 </=54 ng/L Lipase 58 H 12-53 U/L Test 05/01/25 15:30 Range/Units Lactic Acid Level 1.8 0.4-2.0 mmol/L B-Type Natriuretic Peptide 440.74 0-100 pg/mL Microbiology Date/Time Source Procedure Growth Status 05/01/25 18:00 Foot Gram Stain - Final Resulted 05/01/25 18:00 Foot Wound Culture - Preliminary Resulted 05/01/25 15:46 Blood Blood Culture - Preliminary NO GROWTH AFTER 48 HOURS OF INCUBATION. Resulted Problems(with codes): (1) Hyperkalemia (2) Abnormal CT scan (3) Hyperglycemia (4) Chest pain (5) Elevated troponin (6) Cellulitis (7) Diabetic foot ulcer (8) Elevated lipase (9) Hyperglycemia due to diabetes mellitus (10) Acute exacerbation of congestive heart failure (11) Cellulitis of right foot (12) Diabetes mellitus with foot ulcer Plan/Recommendation ASSESSMENT: Patient is a 64 year old seen on the floor for a worsening ulcer PLAN: - The patients chart was reviewed, clinical findings were discussed with the patient, the etiologies of the conditions were discussed in detail, and a treatment plan was agreed to at this time, with both oral and written instructions provided. - reviewed advanced imaging - discussed plan is to perform an incision and drainage - take him to the OR today - we will get cultures in the OR - can weightbear as tolerated in postoperative shoe All questions were answered and concerns addressed to the patient's sa tisfaction. The patient was given the phone number to the clinic and was told how to make contact with the clinic should any concerns or questions arise. Patient understands that if any questions or concerns arise prior to the next appointment, we should be contacted immediately. FOLLOW-UP: Continue to follow while inpatient Plan discussed with: Patient Visit Coding Podiatry Date of Service if different f: May 04, 2025 Billing Provider: BRIAN ANDREW DPM Podiatry Common Visit Codes: CONSULT ONLY Podiatry Consult Codes: [id number] NEW/EST HI 80 BRIAN ANDREW DPM May 04, 2025 11:57
[2025-05-04] MEDS: LIDOCAINE 1% HCL (LOCAL ANESTH.) INJ 20ML MDV ONE (13:35)
--- NOTE | 2025-05-04 13:44 | DVHOP2 ---
Operative Report - 2 Report Details Date: 05/04/25 Preop Diagnosis: 1. Right foot abscess 2. Right foot osteomyelitis 3. Right foot necrotizing fasciitis 4. Right foot cellulitis Postop Diagnosis: Same as preop Surgeon: Brian Andrew MD Anesthesiologist: None Anesthesia: Local Consent: The patient was informed of the risks and benefits of the procedure. These include but are not limited to complications of anesthesia, postoperative infection, incomplete relief of symptoms, recurrence of symptoms, damage to blood vessels, nerves and tendons, deep venous thrombosis, pulmonary embolism and possible need for repeat surgery in the future. Complications: None Estimated Blood Loss: Minimal Findings: Consistent with diagnosis Indications for Surgery: Worsening right foot wound Name of Procedure Performed 1. Right foot I&D (56261) Procedure Details Procedure Details: PRE-PROCEDURE INFORMATION: In the pre-op holding area, the extremity to be operated on was clearly marked and the patient verified correct laterality of the marking. The patient was transferred to the OR table and placed in a supine position. A timeout was performed in which identification of the correct patient, procedure, location, and materials was done. DESCRIPTION OF PROCEDURE: Attention was directed to the right where area of fluctuance was noted. An incision was made over this area and was deepened through blunt dissection. The incision was deepened to the level of abscess and bone. Care was taken to the dissection to avoid any neurovascular and tendinous structures. The incision was deepened to the bone, and the abscess appeared to be purulent fluid consistent with pus. The cortices of the bone was then removed with rongeur an all necrotic tissue. After the abscess was drained, the area was irrigated with 3 L normal saline using cysto tubing. Deep cultures were then obtained from the wound. The area was then inspected and any areas of tracking, especially along the tendons were also drained. The wound was packed with Betadine-soaked gauze and we will need to be closed at a later date. POSTOPERATIVE INFORMATION: The patient tolerated the above noted procedure and anesthesia well and was transferred to the PACU with vital signs stable, and vascular status intact with capillary refill intact to all digits. Deep cultures were taken. Patient will need multiple I and D's. Patient will need 6 weeks IV antibiotics Condition Good Disposition Still a Patient Visit Coding Podiatry Date of Service if different f: May 04, 2025 Billing Provider: BRIAN ANDREW DPM Podiatry Common Visit Codes: PROCEDURE ONLY BRIAN ANDREW DPM May 04, 2025 13:44
[2025-05-04] MEDS: DAPTOmycin 400 MG in SODIUM CHL 0.9% 50 ML IV SCH (16:25)
--- NOTE | 2025-05-04 17:34 | DVHPN2 ---
Progress Note - Dictate Date Seen: May 04, 2025 Medical Necessity Reason Pt with a Central, PICC or Fol: No Subjective Patient feels anxious he is waiting for the methods time analyst vital signs Vital Sign Date Time Temp Pulse Resp B/P (MAP) Pulse Ox O2 Delivery O2 Flow Rate FiO2 05/04/25 16:28 99.5 84 20 102/68 (79) 92 99.5 05/03/25 05:50 Nasal Cannula* 2 28 Total Intake and Output 05/03/25 05/03/25 05/04/25 15:00 23:00 07:00 Intake Total 1180 ml 1700 ml Output Total 500 ml 1200 ml Balance 680 ml 500 ml medications Current Medications Medications Dose Ordered Sig/Amber Route Start Time Stop Time Status Last Admin Dose Admin Dextrose 50 ml UD PRN IV 05/01/25 20:45 Acetaminophen/ Hydrocodone Bitart 1 tab Q4HP PRN PO 05/01/25 20:45 05/04/25 14:55 1 TAB Acetaminophen 650 mg Q6HP PRN PO 05/01/25 20:45 05/03/25 22:05 650 MG Carvedilol 3.125 mg Q12HR PO 05/01/25 22:00 05/03/25 22:13 3.125 MG Atorvastatin Calcium 10 mg HS PO 05/01/25 22:00 05/03/25 22:12 10 MG Insulin Glargine 15 units HS SC 05/02/25 22:00 05/03/25 22:07 15 UNITS Insulin Human Lispro 5 units AC MI 05/03/25 07:00 05/04/25 16:40 5 UNITS Diagnostic Test (Pha) 1 strip ACHS 05/02/25 22:00 05/04/25 16:46 1 STRIP Insulin Human Lispro AC MI 05/03/25 07:00 05/04/25 16:41 2 UNITS Cefepime HCl 50 ml @ 12.5 mls/hr DAILY IV 05/04/25 10:00 05/04/25 10:26 12.5 MLS/HR Daptomycin 400 mg/ Sodium Chloride 50 ml @ 100 mls/hr DAILY IV 05/04/25 10:00 05/04/25 16:25 100 MLS/HR Sodium Chloride 1,000 ml @ 100 mls/hr Q10H IV 05/04/25 19:30 objective HEENT: No evidence of JVD, no oral ulcers. Pulmonary: Lungs are clear on auscultation bilaterally Cardiovascular S1-S2, no S3 or S4 Abdomen: Bowel sounds positive, soft no rebound tenderness Skin: No rash Neurological: Alert, oriented, no focal weakness laboratory and microbiology Laboratory Tests 05/04/25 08:40 Test 05/04/25 08:40 Range/Units Serum Glucose 152 H 74-106 mg/dL Assessment/Plan Assessment: YO, secondary to Sepsis Sepsis secondary to right foot cellulitis and infected non-healing wound Status post debridement CKD IIIa (Baseline Cr 1.5 mg/dl) Acute on chronic systolic CHF (EF: 40%) CAD s/p CABG h/o alcohol abuse Hyponatremia Plan: NS drip x1 L continue broad spectrum IV antibiotics f/u blood cultures Continue Coreg 3.125 mg PO BID daily BMP Strict I&Os Plan discussed with: Patient MABEL JIANG MD May 04, 2025 17:34
--- NOTE | 2025-05-04 18:50 | DVHPN2 ---
Assessment/Plan Assessment/Plan progress note 64 M with IDDM, CKD 3, HFrEF 40%, CAD s/p CABG, alcohol use admitted for R foot wound seen today, taken to OR today, plan to close later. c/w iv abx in the interim physical exam aox4 comfortable on RA clear breath sounds s1 s2 rrr abdomen soft no LE edema R foot wound, extensive cellulitis, puss seen labs ekg imaging reviewed assessment and plan IDDM uncontrolled sepsis YO VMN On CKD HFrEF 40$ chornic systolic HF CAD s/p CABG alcohol use ruled out OM non healing ulcer HAGMA basal bolus ISS IVF vanc and Zosyn dc, switch to cefepime and dapto podiatry consult MRI renal rec appreciated trend cr pain mgmt diet diabetic dvt ppx lovenox full code Plan discussed with: Patient My Orders Orders - BHARTI MAIN MD Procedure Category Date Status Time Urinalysis LAB 05/03/25 Logged 19:59 Urine Bacterial SANDRA 05/03/25 Logged Culture 19:59 Cefepime 2gm/50ml Ns PHA 05/04/25 In Process (Maxipime 2gm/50ml) 10:00 Daptomycin (Cubicin) PHA 05/04/25 In Process 10:00 * Wound Consult CONS 05/04/25 Transmitted Creatine Kinase LAB 05/05/25 Verified 07:57 Date of Service: May 04, 2025 Billing Provider: BHARTI MAIN MD Common Visit Codes: [id number] INP/OBS CARE(HIGH) BHARTI MAIN MD May 04, 2025 18:50
[2025-05-04] MEDS: SODIUM CHLORIDE 0.9% 1,000 ML IV SCH (20:00)
[2025-05-04] MEDS: INSULIN LANTUS (GLARGINE) 1 /0.01ml (100units/ml) SC SCH (21:54)
[2025-05-05] VITALS (7 sets, daily range): BP systolic 107–132; BP diastolic 67–91; PULSE 74–89; RESP 16–20; TEMP 97.7–100.1; O2SAT 94–96
[2025-05-05] MEDS: INSULIN LISPRO (HUMAN) 100 UNITS/ML ML SC SCH (06:25)
[2025-05-05 07:11] LABS: Hematocrit 38.7 % (41.0-53.0); Hemoglobin 13.0 g/dL (13.5-17.5); Mean Corpuscular Hemoglobin 30.7 pg (28.0-32.0); Mean Corpuscular Volume 91.5 fL (80.0-100.0); Nucleated Red Blood Cells % 0.0 %
[2025-05-05 07:17] LABS: Calcium 9.1 mg/dL (8.7-10.4); Chloride 105 mmol/L (98-107); Potassium 4.5 mmol/L (3.5-5.1); Sodium 138 mmol/L (136-145)
[2025-05-05 07:18] LABS: Anion Gap 13 (5-15); Carbon Dioxide 20 mmol/L (20-31)
[2025-05-05 07:23] LABS: BUN/Creatinine Ratio 30.0 (10.0-20.0)
[2025-05-05 07:24] LABS: Blood Urea Nitrogen 63 mg/dL (9-23); Glucose 240 mg/dL (74-106)
[2025-05-05 07:26] LABS: Creatine Kinase IFCC < 15 U/L (46-171)
--- NOTE | 2025-05-05 14:49 | DVHPN2 ---
Assessment/Plan Assessment/Plan progress note 64 M with IDDM, CKD 3, HFrEF 40%, CAD s/p CABG, alcohol use admitted for R foot wound seen today, pending closing. more altered,. escalated abx to dapto and dina. plan for closing tomorrow physical exam aox4 comfortable on RA clear breath sounds s1 s2 rrr abdomen soft no LE edema R foot wound, extensive cellulitis, puss seen labs ekg imaging reviewed assessment and plan IDDM uncontrolled sepsis YO VMN On CKD HFrEF 40$ chornic systolic HF CAD s/p CABG alcohol use ruled out OM non healing ulcer HAGMA basal bolus ISS IVF vanc and Zosyn dc, switch to cefepime and dapto podiatry consult MRI renal rec appreciated trend cr pain mgmt diet diabetic dvt ppx lovenox full code Plan discussed with: Patient My Orders Orders - BHARTI MAIN MD Procedure Category Date Status Time Insulin Lantus PHA 05/04/25 In Process (Glargine) (Lantus) 22:00 Insulin Lispro PHA 05/05/25 In Process (Human) (Humalog) 07:00 Hydromorphone Tablet PHA 05/04/25 In Process (Dilaudid Tablet) 19:00 Straight Cath Patient ORDERS 05/05/25 Transmitted 13:53 Daptomycin (Cubicin) PHA 05/06/25 Logged 10:00 Basic Metabolic Panel LAB 05/06/25 Verified 04:00 Complete Blood Count LAB 05/06/25 Verified 04:00 Date of Service: May 05, 2025 Billing Provider: BHARTI MAIN MD Common Visit Codes: [id number] INP/OBS CARE(HIGH) BHARTI MAIN MD May 05, 2025 14:49
[2025-05-05 14:53] LABS: Urine Protein, UAD 1+ (Negative)
--- NOTE | 2025-05-05 15:06 | DVHPN2 ---
Progress Note - Dictate Date Seen: May 05, 2025 Medical Necessity Reason Pt with a Central, PICC or Fol: No Subjective Patient has no complaints today vital signs Vital Sign Date Time Temp Pulse Resp B/P (MAP) Pulse Ox O2 Delivery O2 Flow Rate FiO2 05/05/25 09:15 86 112/69 05/05/25 08:30 97.8 19 94 97.8 05/05/25 08:00 Room Air* 0 21 Total Intake and Output 05/04/25 05/04/25 05/05/25 15:00 23:00 07:00 Intake Total 450 ml 436 ml Output Total 800 ml 580 ml Balance -350 ml -144 ml medications Current Medications Medications Dose Ordered Sig/Amber Route Start Time Stop Time Status Last Admin Dose Admin Dextrose 50 ml UD PRN IV 05/01/25 20:45 Acetaminophen/ Hydrocodone Bitart 1 tab Q4HP PRN PO 05/01/25 20:45 05/04/25 21:55 1 TAB Acetaminophen 650 mg Q6HP PRN PO 05/01/25 20:45 05/03/25 22:05 650 MG Carvedilol 3.125 mg Q12HR PO 05/01/25 22:00 05/05/25 09:15 3.125 MG Atorvastatin Calcium 10 mg HS PO 05/01/25 22:00 05/04/25 21:44 10 MG Diagnostic Test (Pha) 1 strip ACHS 05/02/25 22:00 05/05/25 06:27 1 STRIP Insulin Human Lispro AC SC 05/03/25 07:00 05/05/25 06:20 3 UNITS Daptomycin 400 mg/ Sodium Chloride 50 ml @ 100 mls/hr DAILY IV 05/04/25 10:00 05/05/25 09:15 100 MLS/HR Sodium Chloride 1,000 ml @ 100 mls/hr Q10H IV 05/04/25 19:30 05/04/25 20:00 100 MLS/HR Insulin Glargine 12 units HS SC 05/04/25 22:00 05/04/25 21:54 12 UNITS Insulin Human Lispro 6 units AC SC 05/05/25 07:00 05/05/25 06:25 6 UNITS Hydromorphone HCl 2 mg Q4HP PRN PO 05/04/25 19:00 05/05/25 10:35 2 MG Meropenem 50 ml @ 17 mls/hr Q12HR IV 05/05/25 22:00 UNV objective HEENT: No evidence of JVD, no oral ulcers. Pulmonary: Lungs are clear on auscultation bilaterally Cardiovascular S1-S2, no S3 or S4 Abdomen: Bowel sounds positive, soft no rebound tenderness Skin: No rash Neurological: Alert, oriented, no focal weakness laboratory and microbiology Laboratory Tests 05/05/25 05:50 Test 05/05/25 05:50 Range/Units Serum Glucose 240 H 74-106 mg/dL Assessment/Plan Assessment: YO, secondary to Sepsis Sepsis secondary to right foot cellulitis and infected non-healing wound Status post debridement CKD IIIa (Baseline Cr 1.5 mg/dl) Acute on chronic systolic CHF (EF: 40%) CAD s/p CABG h/o alcohol abuse Hyponatremia Plan: Continue NS continue broad spectrum IV antibiotics f/u blood cultures Continue Coreg 3.125 mg PO BID daily BMP Strict I&Os Thank you very much Plan discussed with: Patient MABEL JIANG MD May 05, 2025 15:06
[2025-05-05] MEDS: SODIUM CHLORIDE 0.9% 1,000 ML IV SCH (17:50)
[2025-05-05] MEDS: MEROPENEM 1GM IVPB 50 ML IV SCH (21:30)
[2025-05-06] VITALS (9 sets, daily range): BP systolic 104–127; BP diastolic 66–83; PULSE 70–84; RESP 13–18; TEMP 97.9–98.6; O2SAT 91–97
[2025-05-06 07:26] LABS: Hematocrit 38.2 % (41.0-53.0); Hemoglobin 12.7 g/dL (13.5-17.5); Mean Corpuscular Hemoglobin 30.5 pg (28.0-32.0); Mean Corpuscular Volume 91.9 fL (80.0-100.0); Nucleated Red Blood Cells % 0.1 %
[2025-05-06 07:30] LABS: Anion Gap 11 (5-15); Potassium 4.4 mmol/L (3.5-5.1); Sodium 141 mmol/L (136-145)
[2025-05-06 07:31] LABS: Calcium 9.4 mg/dL (8.7-10.4)
[2025-05-06 07:36] LABS: BUN/Creatinine Ratio 30.8 (10.0-20.0)
[2025-05-06 07:40] LABS: Blood Urea Nitrogen 49 mg/dL (9-23); Carbon Dioxide 20 mmol/L (20-31); Chloride 110 mmol/L (98-107); Glucose 145 mg/dL (74-106)
[2025-05-06] MEDS ORDERED: DAPTOmycin 0 MG in SODIUM CHL 0.9% 50 ML IV SCH (10:00)
[2025-05-06] MEDS ORDERED: MEROPENEM 1GM IVPB 50 ML IV SCH (11:15)
[2025-05-06] MEDS: KETOROLAC TROMETH 30 MG/ML 1ML VIAL IV ONE (13:30)
[2025-05-06] MEDS ORDERED: MORPHINE SULFATE 4 MG/ML SYR/VIAL IV PRN (13:30)
[2025-05-06] MEDS: ACCU-CHEK COMFORT CURVE STRIP VI ONE (13:30)
[2025-05-06] MEDS ORDERED: METOCLOPRAMIDE HCL 5MG/ml INJ 2ml VIAL IV PRN (13:30)
[2025-05-06] MEDS ORDERED: MORPHINE SULFATE INJ 2 MG/ml SYRG IV PRN (13:30)
[2025-05-06] MEDS ORDERED: HYDROmorphone HCL 2 MG/ML VL/or syr IV PRN ×2 (13:30)
[2025-05-06] MEDS ORDERED: ONDANSETRON HCL 4 MG/2 ML VIAL ONE (13:37)
[2025-05-06] MEDS ORDERED: fentaNYL CITRATE 100 MCG/2 ML VL ONE (13:37)
[2025-05-06] MEDS ORDERED: MIDAZOLAM HCL 2MG/2ML 2ml VIAL (1mg/ml) ONE (13:37)
[2025-05-06] MEDS ORDERED: PROPOFOL 10 MG/ML 20 ML IV ONE (13:37)
[2025-05-06] MEDS ORDERED: SODIUM CHLORIDE LOCK 10 ML ONE (13:37)
--- NOTE | 2025-05-06 13:38 | DVHPN2 ---
Subjective The patient is a 64-year-old male with past medical history of diabetes mellitus, hyperlipidemia, and hypertension who presented to [facility] ED for evaluation of right lower extremity nonhealing wound. Patient states he has been managing his wound at home, but the wound has now gotten out of control, very painful, and significant malodorous. Patient was seen and evaluated in the ED, laboratory data shows WBC 15.8, platelets 223, sodium 131, potassium 4.5, BUN 51, creatinine 3.10, GFR 22, glucose 223, BNP 440.72, troponin 22, lipase 58, blood pressure 97/61, heart rate 80, temperature 97.6 F, O2 saturation 96% on room air. Right foot CT showed no evidence of osteomyelitis; subcutaneous adipose tissue edema along the plantar aspect of the midfoot to hindfoot; maintain elevated suspicious for osteomyelitis given the extensive soft tissue edema correlate with ESR/CRP. Patient was started on IV antibiotic regimen vancomycin, please see medication orders section in the computer. On my assessment, patient denied chest pain, no dizziness, headache, diaphoresis, shortness of breaths, no abdominal pain, diarrhea, nausea, vomiting, fever, chills. Patient was admitted for further evaluation and medical management. Changes from previous H/P or p: No Changes Eyes: No Pain, No Vision change, No Conjunctivae inflammation, No Eyelid inflammation, No Other, No Redness ENT: No Ear pain, No Ear discharge, No Nose pain, No Nose discharge, No Nose congestion, No Mouth pain, No Mouth swelling, No Throat pain, No Throat swelling, No Other Cardiovascular: No Chest Pain, No Palpitations, No Orthopnea, No Paroxysmal Noc. Dyspnea, No Edema, No Lt Headedness, No Other Respiratory: No Cough, No Dry, No Shortness of breath, No SOB with excertion, No Wheezing, No Hemoptysis, No Pleuritic Pain, No Sputum, No Other Gastrointestinal: No Nausea, No Vomiting, No Abdominal Pain, No Diarrhea, No Constipation, No Melena, No Hematochezia, No Other Genitourinary: No Dysuria, No Frequency, No Incontinence, No Hematuria, No Retention, No Other Musculoskeletal: other (Right lower extremity and right foot wound); No neck pain, No shoulder pain, No arm pain, No back pain, No hand pain, No leg pain, No foot pain Skin: No Rash, No Lesions, No Jaundice, No Bruising, No Other Objective Vitals Vital Signs Date Time Temp Pulse Resp B/P (MAP) Pulse Ox O2 Delivery O2 Flow Rate FiO2 05/06/25 13:22 98.3 80 18 120/77 (91) 93 98.3 05/06/25 07:30 Room Air* 0 21 Intake/Output Intake and Output 05/06/25 07:00 Intake Total 650 ml Output Total 1854 ml Balance -1204 ml Intake Oral 600 ml IV Total 50 ml Output Urine Total 1854 ml Exam Dermatological: Skin is dry with mild erythema and some maceration around the wound site No gross deformities noted Mild non-pitting edema present bilaterally Right lateral foot area of fluctuance and lilia necrosis with purulent drainage Vascular: Dorsalis pedis and posterior tibial pulses are 1+ bilaterally Capillary refill is under 2 seconds Skin temperature is warm bilaterally Neurologic: Protective sensation is absent on the plantar forefoot bilaterally Monofilament testing reveals decreased sensation in multiple plantar sites Musculoskeletal: Range of motion at the ankle and MTP joints is within normal limits. Strength is 5/5 in all tested muscle groups. Gait is antalgic due to offloading of the affected limb. Medications Current Medications Medications Dose Ordered Sig/Amber Route Start Time Stop Time Status Last Admin Dose Admin Dextrose 50 ml UD PRN IV 05/01/25 20:45 Acetaminophen/ Hydrocodone Bitart 1 tab Q4HP PRN PO 05/01/25 20:45 05/06/25 09:37 1 TAB Acetaminophen 650 mg Q6HP PRN PO 05/01/25 20:45 05/03/25 22:05 650 MG Carvedilol 3.125 mg Q12HR PO 05/01/25 22:00 05/05/25 21:30 3.125 MG Atorvastatin Calcium 10 mg HS PO 05/01/25 22:00 05/05/25 21:29 10 MG Diagnostic Test (Pha) 1 strip ACHS 05/02/25 22:00 05/06/25 11:44 1 STRIP Insulin Human Lispro AC SC 05/03/25 07:00 05/05/25 17:56 2 UNITS Daptomycin 400 mg/ Sodium Chloride 50 ml @ 100 mls/hr DAILY IV 05/04/25 10:00 05/05/25 09:15 100 MLS/HR Insulin Glargine 12 units HS SC 05/04/25 22:00 05/05/25 21:42 12 UNITS Insulin Human Lispro 6 units AC SC 05/05/25 07:00 05/05/25 17:53 6 UNITS Hydromorphone HCl 2 mg Q4HP PRN PO 05/04/25 19:00 05/06/25 08:31 2 MG Meropenem 50 ml @ 17 mls/hr Q8HR IV 05/06/25 15:00 Metoclopramide HCl 10 mg ONCE PRN IV 05/06/25 13:30 05/06/25 13:31 UNV Hydromorphone HCl 0.5 mg Q10M PRN IV 05/06/25 13:30 05/06/25 14:11 UNV Morphine Sulfate 2 mg Q4H PRN IV 05/06/25 13:30 05/06/25 17:31 UNV Hydromorphone HCl 0.25 mg Q10M PRN IV 05/06/25 13:30 05/06/25 14:01 UNV Morphine Sulfate 1 mg Q30M PRN IV 05/06/25 13:30 05/06/25 15:31 UNV Laboratory Results Laboratory Tests 05/06/25 06:34 Chemistry Test 05/06/25 06:34 Calcium Level 9.4 mg/dL (8.7-10.4) Urinalysis Test 05/05/25 14:16 Urine Color Yellow (Yellow) Urine Clarity Clear (Clear) Urine pH 5.5 (5.0-9.0) Urine Specific [employer] 1.017 (1.001-1.035) Urine Protein 1+ (Negative) H Urine Ketones Trace (Negative) Urine Blood Negative /uL (Negative) Urine Nitrite Negative (Negative) Urine Bilirubin Negative (Negative) Urine Urobilinogen Normal mg/dL (Negative) Urine Leukocyte Esterase Negative /uL (Negative) Urine RBC <1 /hpf (0 - 3) Urine Microscopic WBC < 1 /HPF (0-3) Urine Squamous Epithelial Cells None seen /hpf (<5) Urine Bacteria None seen /hpf (None Seen) Urine Glucose 3+ mg/dL (Normal) H Microbiology Microbiology Date/Time Source Procedure Growth Status 05/04/25 13:42 Foot Right Gram Stain - Final Resulted 05/04/25 13:42 Foot Right Anaerobic Culture Pending Resulted 05/04/25 13:42 Foot Right Aerobic Culture - Preliminary Resulted 05/01/25 15:46 Blood Blood Culture - Preliminary NO GROWTH AFTER 72 HOURS OF INCUBATION. Resulted Assessment/Plan Assessment/Plan ASSESSMENT: Patient is a 64 year old seen on the floor follow up s/p foot I&D PLAN: - The patients chart was reviewed, clinical findings were discussed with the patient, the etiologies of the conditions were discussed in detail, and a treatment plan was agreed to at this time, with both oral and written instructions provided. - reviewed advanced imaging - reviewed all of the labs and pathology - discussed plan is to perform a subsequent incision and drainage - patient has been NPO since midnight - take him to the OR today - patient will need a wound VAC placed after procedure today due to significant tissue loss - patient will need 6 weeks IV antibiotics All questions were answered and concerns addressed to the patient's satisfaction. The patient was given the phone number to the clinic and was told how to make contact with the clinic should any concerns or questions arise. Patient understands that if any questions or concerns arise prior to the next appointment, we should be contacted immediately. FOLLOW-UP: Continue to follow while inpatient Plan discussed with: Patient Problem List: (1) Cellulitis (2) Diabetic foot ulcer (3) Elevated lipase (4) Hyperglycemia due to diabetes mellitus (5) Acute exacerbation of congestive heart failure (6) Cellulitis of right foot (7) Diabetes mellitus with foot ulcer (8) Hyperkalemia (9) Hyperglycemia (10) Chest pain (11) Abnormal CT scan (12) Elevated troponin Visit Coding Podiatry Date of Service if different f: May 06, 2025 Billing Provider: BRIAN ANDREW DPM Podiatry Common Visit Codes: [id number] INP/OBS CARE(HIGH) BRIAN ANDREW DPM May 06, 2025 13:38
[2025-05-06] MEDS: ceFAZolin 2 GM/D5W50ml 50 ML IV ONE (13:43)
--- NOTE | 2025-05-06 14:04 | DVHPN2 ---
Progress Note - Dictate Date Seen: May 06, 2025 Medical Necessity Reason Pt with a Central, PICC or Fol: No Subjective Patient has no complaints today vital signs Vital Sign Date Time Temp Pulse Resp B/P (MAP) Pulse Ox O2 Delivery O2 Flow Rate FiO2 05/06/25 13:22 98.3 80 18 120/77 (91) 93 98.3 05/06/25 07:30 Room Air* 0 21 Total Intake and Output 05/05/25 05/05/25 05/06/25 15:00 23:00 07:00 Intake Total 50 ml 600 ml 0 ml Output Total 1554 ml 300 ml Balance 50 ml -954 ml -300 ml medications Current Medications Medications Dose Ordered Sig/Amber Route Start Time Stop Time Status Last Admin Dose Admin Dextrose 50 ml UD PRN IV 05/01/25 20:45 Acetaminophen/ Hydrocodone Bitart 1 tab Q4HP PRN PO 05/01/25 20:45 05/06/25 09:37 1 TAB Acetaminophen 650 mg Q6HP PRN PO 05/01/25 20:45 05/03/25 22:05 650 MG Carvedilol 3.125 mg Q12HR PO 05/01/25 22:00 05/05/25 21:30 3.125 MG Atorvastatin Calcium 10 mg HS PO 05/01/25 22:00 05/05/25 21:29 10 MG Diagnostic Test (Pha) 1 strip ACHS 05/02/25 22:00 05/06/25 11:44 1 STRIP Insulin Human Lispro [facility] 05/03/25 07:00 05/05/25 17:56 2 UNITS Daptomycin 400 mg/ Sodium Chloride 50 ml @ 100 mls/hr DAILY IV 05/04/25 10:00 05/05/25 09:15 100 MLS/HR Insulin Glargine 12 units [facility] 05/04/25 22:00 05/05/25 21:42 12 UNITS Insulin Human Lispro 6 units AC SC 05/05/25 07:00 05/05/25 17:53 6 UNITS Hydromorphone HCl 2 mg Q4HP PRN PO 05/04/25 19:00 05/06/25 08:31 2 MG Meropenem 50 ml @ 17 mls/hr Q8HR IV 05/06/25 15:00 Metoclopramide HCl 10 mg ONCE PRN IV 05/06/25 13:30 05/06/25 13:31 UNV Hydromorphone HCl 0.5 mg Q10M PRN IV 05/06/25 13:30 05/06/25 14:11 UNV Morphine Sulfate 2 mg Q4H PRN IV 05/06/25 13:30 05/06/25 17:31 UNV Hydromorphone HCl 0.25 mg Q10M PRN IV 05/06/25 13:30 05/06/25 14:01 UNV Morphine Sulfate 1 mg Q30M PRN IV 05/06/25 13:30 05/06/25 15:31 UNV objective HEENT: No evidence of JVD, no oral ulcers. Pulmonary: Lungs are clear on auscultation bilaterally Cardiovascular S1-S2, no S3 or S4 Abdomen: Bowel sounds positive, soft no rebound tenderness Skin: No rash Neurological: Alert, oriented, no focal weakness laboratory and microbiology Laboratory Tests 05/06/25 06:34 Test 05/06/25 06:34 Range/Units Serum Glucose 145 H 74-106 mg/dL Assessment/Plan Assessment: YO, secondary to Sepsis Sepsis secondary to right foot cellulitis and infected non-healing wound Status post debridement CKD IIIa (Baseline Cr 1.5 mg/dl) Acute on chronic systolic CHF (EF: 40%) CAD s/p CABG h/o alcohol abuse Hyponatremia Plan: Continue NS continue broad spectrum IV antibiotics f/u blood cultures Continue Coreg 3.125 mg PO BID daily BMP Strict I&Os Going to the OR Thank you very much Dietary Evaluation Review Comments: 1. CCHO-60 diet 2. To support optimal wound healing, the pt should closely monitor and regulate oral intake while maintaining blood sugar levels within or near the normal range. Expected Outcomes/Goals: gradually healed wound, gradual wt loss Plan discussed with: Patient MABEL JIANG MD May 06, 2025 14:04
--- NOTE | 2025-05-06 14:10 | DVHOP2 ---
Operative Report - 2 Report Details Date: 05/06/25 Preop Diagnosis: 1. Right foot abscess 2. Right foot osteomyelitis 3. Right foot necrotizing fasciitis 4. Right foot cellulitis Postop Diagnosis: Same as preop Surgeon: Brian Andrew MD Anesthesiologist: None Anesthesia: Local Consent: The patient was informed of the risks and benefits of the procedure. These include but are not limited to complications of anesthesia, postoperative infection, incomplete relief of symptoms, recurrence of symptoms, damage to blood vessels, nerves and tendons, deep venous thrombosis, pulmonary embolism and possible need for repeat surgery in the future. Complications: None Estimated Blood Loss: Minimal Fluids: See anesthesia Findings: Consistent with diagnosis Indications for Surgery: Worsening foot wound Name of Procedure Performed 1. Right foot I&D (70298) Procedure Details Procedure Details: PRE-PROCEDURE INFORMATION: In the pre-op holding area, the extremity to be operated on was clearly marked and the patient verified correct laterality of the marking. The patient was transferred to the OR table and placed in a supine position. A timeout was performed in which identification of the correct patient, procedure, location, and materials was done. DESCRIPTION OF PROCEDURE: Attention was directed to the right foot where previous incision was made An incision was made over this area and was deepened through blunt dissection. The incision was deepened to the level of abscess and bone. Care was taken to the dissection to avoid any neurovascular and tendinous structures. The incision was deepened to the bone, and the abscess appeared to be purulent fluid consistent with pus. The cortices of the bone was then removed with rongeur an all necrotic tissue. After the abscess was drained, the area was irrigated with 3 L normal saline using cysto tubing. Deep cultures were then obtained from the wound. The area was then inspected and any areas of tracking, especially along the tendons were also drained. Wound was dressed with a Betadine-soaked gauze. POSTOPERATIVE INFORMATION: The patient tolerated the above noted procedure and anesthesia well and was transferred to the PACU with vital signs stable, and vascular status intact with capillary refill intact to all digits. Recommend placement of wound VAC to see how tissue granulates with significant tissue loss. Recommend 6 weeks IV antibiotics Condition Good Disposition Still a Patient Visit Coding Podiatry Date of Service if different f: May 06, 2025 Billing Provider: BRIAN ANDREW DPM Podiatry Common Visit Codes: PROCEDURE ONLY BRIAN ANDREW DPM May 06, 2025 14:10
--- NOTE | 2025-05-06 14:37 | DVHPN2 ---
Assessment/Plan Assessment/Plan progress note 64 M with IDDM, CKD 3, HFrEF 40%, CAD s/p CABG, alcohol use admitted for R foot wound seen today, closing today. pt will sher 6 weeks abx. cult pending. place picc physical exam aox4 comfortable on RA clear breath sounds s1 s2 rrr abdomen soft no LE edema R foot wound, extensive cellulitis, puss seen labs ekg imaging reviewed assessment and plan IDDM uncontrolled sepsis YO VMN On CKD HFrEF 40$ chornic systolic HF CAD s/p CABG alcohol use ruled out OM non healing ulcer HAGMA basal bolus ISS IVF vanc and Zosyn dc, switch to cefepime and dapto podiatry consult MRI renal rec appreciated trend cr pain mgmt diet diabetic dvt ppx lovenox full code Plan discussed with: Patient My Orders Orders - BHARTI MAIN MD Procedure Category Date Status Time Discontinue Tele CRYSTAL 05/06/25 In Process 09:52 Transfer Orders XFER 05/06/25 Transmitted 09:52 Meropenem 1gm Ivpb PHA 05/06/25 In Process (Merrem 1gm/50ml) 15:00 * Picc Line Consult CONS 05/06/25 Transmitted 14:34 Date of Service: May 06, 2025 Billing Provider: BHARTI MAIN MD Common Visit Codes: [id number] INP/OBS CARE(HIGH) BHARTI MAIN MD May 06, 2025 14:37
[2025-05-06] MEDS: MEROPENEM 1GM IVPB 50 ML IV SCH (15:00)
[2025-05-07] VITALS (9 sets, daily range): BP systolic 94–114; BP diastolic 66–75; PULSE 39–87; RESP 16–18; TEMP 97.8–98.9; O2SAT 90–93
[2025-05-07 09:26] LABS: INR 1.13 (0.9-1.15); Partial Thromboplastin Time 30.3 SEC (24.5-34.5); Prothrombin Time 11.8 sec (9.3-11.8)
--- NOTE | 2025-05-07 14:28 | DVHPN2 ---
Assessment/Plan Assessment/Plan progress note 64 M with IDDM, CKD 3, HFrEF 40%, CAD s/p CABG, alcohol use admitted for R foot wound seen today, likely mssa, might deescalate pending final cult. 6 weeks abx physical exam aox4 comfortable on RA clear breath sounds s1 s2 rrr abdomen soft no LE edema R foot wound, extensive cellulitis, puss seen labs ekg imaging reviewed assessment and plan IDDM uncontrolled sepsis YO VMN On CKD HFrEF 40$ chornic systolic HF CAD s/p CABG alcohol use ruled out OM non healing ulcer HAGMA basal bolus ISS IVF vanc and Zosyn dc, switch to cefepime and dapto podiatry consult MRI renal rec appreciated trend cr pain mgmt diet diabetic dvt ppx lovenox full code Plan discussed with: Patient My Orders Orders - BHARTI MAIN MD Procedure Category Date Status Time * Picc Line Consult CONS 05/06/25 Transmitted 14:34 Date of Service: May 07, 2025 Billing Provider: BHARTI MAIN MD Common Visit Codes: [id number] INP/OBS CARE(HIGH) BHARTI MAIN MD May 07, 2025 14:28
--- NOTE | 2025-05-07 15:06 | DVHPN2 ---
Progress Note - Dictate Date Seen: May 07, 2025 Medical Necessity Reason Pt with a Central, PICC or Fol: No Subjective Mentioned no complaints today at bedside. vital signs Vital Sign Date Time Temp Pulse Resp B/P (MAP) Pulse Ox O2 Delivery O2 Flow Rate FiO2 05/07/25 12:49 97.8 82 18 106/68 (81) 92 97.8 05/07/25 08:00 Room Air* 0 21 Total Intake and Output 05/06/25 05/06/25 05/07/25 15:00 23:00 07:00 Intake Total 100 ml 250 ml 50 ml Output Total 400 ml 0 ml Balance 100 ml -150 ml 50 ml medications Current Medications Medications Dose Ordered Sig/Amber Route Start Time Stop Time Status Last Admin Dose Admin Dextrose 50 ml UD PRN IV 05/01/25 20:45 Acetaminophen/ Hydrocodone Bitart 1 tab Q4HP PRN PO 05/01/25 20:45 05/06/25 17:17 1 TAB Acetaminophen 650 mg Q6HP PRN PO 05/01/25 20:45 05/03/25 22:05 650 MG Carvedilol 3.125 mg Q12HR PO 05/01/25 22:00 05/07/25 10:49 3.125 MG Atorvastatin Calcium 10 mg HS PO 05/01/25 22:00 05/06/25 22:37 10 MG Diagnostic Test (Pha) 1 strip ACHS 05/02/25 22:00 05/07/25 10:50 1 STRIP Insulin Human Lispro [facility] 05/03/25 07:00 05/07/25 11:16 1 UNITS Daptomycin 400 mg/ Sodium Chloride 50 ml @ 100 mls/hr DAILY IV 05/04/25 10:00 05/05/25 09:15 100 MLS/HR Insulin Glargine 12 units HS SC 05/04/25 22:00 05/06/25 22:00 12 UNITS Insulin Human Lispro 6 units AC SC 05/05/25 07:00 05/07/25 11:16 6 UNITS Hydromorphone HCl 2 mg Q4HP PRN PO 05/04/25 19:00 05/06/25 08:31 2 MG Meropenem 50 ml @ 17 mls/hr Q8HR IV 05/06/25 15:00 05/07/25 08:07 17 MLS/HR objective HEENT: No evidence of JVD, no oral ulcers. Pulmonary: Lungs are clear on auscultation bilaterally Cardiovascular S1-S2, no S3 or S4 Abdomen: Bowel sounds positive, soft no rebound tenderness Skin: No rash Neurological: Alert, oriented, no focal weakness laboratory and microbiology Laboratory Tests 05/06/25 06:34 Test 05/06/25 06:34 Range/Units Serum Glucose 145 H 74-106 mg/dL Assessment/Plan Assessment: YO, secondary to Sepsis Sepsis secondary to right foot cellulitis and infected non-healing wound Status post debridement, most recent May 06 CKD IIIa (Baseline Cr 1.5 mg/dl) Acute on chronic systolic CHF (EF: 40%) CAD s/p CABG h/o alcohol abuse Hyponatremia Plan: DC NS drip. Encourage p.o. intake continue broad spectrum IV antibiotics f/u blood cultures Continue Coreg 3.125 mg PO BID daily BMP Strict I&Os Going to the OR Thank you very much Dietary Evaluation Review Comments: 1. CCHO-60 diet 2. To support optimal wound healing, the pt should closely monitor and regulate oral intake while maintaining blood sugar levels within or near the normal range. Expected Outcomes/Goals: gradually healed wound, gradual wt loss Plan discussed with: Patient, Spouse MABEL JIANG MD May 07, 2025 15:06
[2025-05-07] MEDS ORDERED: SODIUM CHLORIDE 0.9% 1,000 ML IV SCH (15:15)
[2025-05-07] MEDS: BUPIVACAINE 0.25% INJ 50ML VIAL ONE (15:28)
[2025-05-07] MEDS: DAPTOmycin 400 MG in SODIUM CHL 0.9% 50 ML IV SCH (18:00)
[2025-05-07] MEDS: LIDOCAINE 1% (LOCAL ANESTH.) PF 5ml SDV ID ONE (18:07)
[2025-05-07] MEDS: SODIUM CHLOR 0.9% PF (SALINE LOCK) 10ML VIAL/SYR IV SCH (22:22)
[2025-05-08] VITALS (8 sets, daily range): BP systolic 104–146; BP diastolic 71–92; PULSE 68–84; RESP 14–21; TEMP 97–98.3; O2SAT 92–95
[2025-05-08] MEDS: SODIUM CHLORIDE 0.9% 1,000 ML IV SCH (07:14)
[2025-05-08 07:46] LABS: Hematocrit 37.9 % (41.0-53.0); Hemoglobin 12.7 g/dL (13.5-17.5); Mean Corpuscular Hemoglobin 31.0 pg (28.0-32.0); Mean Corpuscular Volume 92.5 fL (80.0-100.0); Nucleated Red Blood Cells % 0.0 %
[2025-05-08 08:05] LABS: Anion Gap 10 (5-15); Chloride 106 mmol/L (98-107); Potassium 4.3 mmol/L (3.5-5.1); Sodium 136 mmol/L (136-145)
[2025-05-08 08:06] LABS: Calcium 9.1 mg/dL (8.7-10.4)
[2025-05-08 08:07] LABS: Carbon Dioxide 20 mmol/L (20-31)
[2025-05-08 08:11] LABS: BUN/Creatinine Ratio 29.8 (10.0-20.0); Blood Urea Nitrogen 53 mg/dL (9-23); Glucose 161 mg/dL (74-106)
--- NOTE | 2025-05-08 14:54 | DVHPN2 ---
Reviewed: H&P Changes from previous H/P or p: No Changes General: Per HPI Eyes: No Pain, No Vision change, No Conjunctivae inflammation, No Eyelid inflammation, No Other, No Redness ENT: No Ear pain, No Ear discharge, No Nose pain, No Nose discharge, No Nose congestion, No Mouth pain, No Mouth swelling, No Throat pain, No Throat swelling, No Other Cardiovascular: No Chest Pain, No Palpitations, No Orthopnea, No Paroxysmal Noc. Dyspnea, No Edema, No Lt Headedness, No Other Respiratory: No Cough, No Dry, No Shortness of breath, No SOB with excertion, No Wheezing, No Hemoptysis, No Pleuritic Pain, No Sputum, No Other Gastrointestinal: No Nausea, No Vomiting, No Abdominal Pain, No Diarrhea, No Constipation, No Melena, No Hematochezia, No Other Genitourinary: No Dysuria, No Frequency, No Incontinence, No Hematuria, No Retention, No Other Musculoskeletal: other (Right lower extremity and right foot wound); No neck pain, No shoulder pain, No arm pain, No back pain, No hand pain, No leg pain, No foot pain Skin: No Rash, No Lesions, No Jaundice, No Bruising, No Other Objective Vitals Vital Signs Date Time Temp Pulse Resp B/P (MAP) Pulse Ox O2 Delivery O2 Flow Rate FiO2 05/08/25 10:53 75 104/76 05/08/25 09:00 97.0 14 93 97.0 05/08/25 08:08 Room Air* 0 21 Intake/Output Intake and Output 05/08/25 07:00 Intake Total 740 ml Output Total 675 ml Balance 65 ml Intake Oral 640 ml IV Total 100 ml Output Urine Total 675 ml Exam physical exam aox4 comfortable on RA clear breath sounds s1 s2 rrr abdomen soft no LE edema R foot wound, extensive cellulitis, puss seen Medications Current Medications Medications Dose Ordered Sig/Amber Route Start Time Stop Time Status Last Admin Dose Admin Dextrose 50 ml UD PRN IV 05/01/25 20:45 Acetaminophen/ Hydrocodone Bitart 1 tab Q4HP PRN PO 05/01/25 20:45 05/08/25 02:54 1 TAB Acetaminophen 650 mg Q6HP PRN PO 05/01/25 20:45 05/03/25 22:05 650 MG Carvedilol 3.125 mg Q12HR PO 05/01/25 22:00 05/08/25 09:53 3.125 MG Atorvastatin Calcium 10 mg HS PO 05/01/25 22:00 05/07/25 22:21 10 MG Diagnostic Test (Pha) 1 strip ACHS 05/02/25 22:00 05/08/25 11:37 1 STRIP Insulin Human Lispro AC [place] 05/03/25 07:00 05/08/25 06:15 1 UNITS Insulin Glargine 12 units HS [place] 05/04/25 22:00 05/07/25 22:21 12 UNITS Insulin Human Lispro 6 units AC [place] 05/05/25 07:00 05/08/25 11:57 6 UNITS Hydromorphone HCl 2 mg Q4HP PRN PO 05/04/25 19:00 05/07/25 15:22 2 MG Sodium Chloride 10 ml QSHIFT@ IV 05/07/25 22:00 05/08/25 09:49 10 ML Ceftriaxone Sodium 50 ml @ 100 mls/hr DAILY@ IV 05/08/25 15:00 UNV Laboratory Results Laboratory Tests 05/08/25 06:33 Chemistry Test 05/08/25 06:33 Calcium Level 9.1 mg/dL (8.7-10.4) Urinalysis Test 05/05/25 14:16 Urine Color Yellow (Yellow) Urine Clarity Clear (Clear) Urine pH 5.5 (5.0-9.0) Urine Specific [place] 1.017 (1.001-1.035) Urine Protein 1+ (Negative) H Urine Ketones Trace (Negative) Urine Blood Negative /uL (Negative) Urine Nitrite Negative (Negative) Urine Bilirubin Negative (Negative) Urine Urobilinogen Normal mg/dL (Negative) Urine Leukocyte Esterase Negative /uL (Negative) Urine RBC <1 /hpf (0 - 3) Urine Microscopic WBC < 1 /HPF (0-3) Urine Squamous Epithelial Cells None seen /hpf (<5) Urine Bacteria None seen /hpf (None Seen) Urine Glucose 3+ mg/dL (Normal) H Microbiology Microbiology Date/Time Source Procedure Growth Status 05/04/25 13:42 Foot Right Gram Stain - Final Resulted 05/04/25 13:42 Foot Right Anaerobic Culture - Preliminary Resulted 05/04/25 13:42 Aerobic Culture - Final Staphylococcus aureus Resulted 05/01/25 15:46 Blood Blood Culture - Final NO GROWTH AFTER 5 DAYS OF INCUBATION. Complete Labs and/or images reviewed: Labs reviewed by me, Image(s) reviewed by me Assessment/Plan Assessment/Plan 64 M with IDDM, CKD 3, HFrEF 40%, CAD s/p CABG, alcohol use admitted for R foot wound -een today, likely mssa, might deescalate pending final cult. 6 weeks abx -05/08: Discussed with Podiatry we will opt to do IV antibiotics PICC line to be inserted today, IV antibiotics ceftriaxone 1 g daily for 6 weeks, social consult placed. Deescalate dapto and meropenem to ceftriaxone. labs ekg imaging reviewed assessment and plan IDDM uncontrolled sepsis YO VMN On CKD HFrEF 40$ chornic systolic HF CAD s/p CABG alcohol use ruled out OM non healing ulcer HAGMA plan: basal bolus ISS IVF vanc and Zosyn dc > switch to cefepime and dapto > ctx only podiatry consult MRI renal rec appreciated trend cr pain mgmt diet diabetic dvt ppx lovenox full code Plan discussed with: Patient My Orders Orders - ELI BEATTY MD Procedure Category Date Status Time Thyroid Stimulating LAB 05/08/25 Logged Hormone 12:58 Ammonia LAB 05/08/25 Logged 12:58 Abg W/ Co-Ox RT 05/08/25 Logged 12:58 * Check Writer Salesperson CONS 05/08/25 Transmitted Consult Ceftriaxone 1gm/50ml PHA 05/08/25 Logged (Rocephin) 15:00 * Picc Line Consult CONS 05/08/25 Transmitted 14:52 Date of Service: May 08, 2025 Billing Provider: ELI BEATTY MD Common Visit Codes: [id number] INP/OBS CARE(HIGH) ELI BEATTY MD May 08, 2025 14:54
[2025-05-08 15:52] LABS: Base Excess 0.9 mmol/L (-2.0-3.0)
--- NOTE | 2025-05-08 17:51 | DVHPN2 ---
Progress Note - Dictate Date Seen: May 08, 2025 Medical Necessity Reason Pt with a Central, PICC or Fol: No Subjective No complaints today per patient vital signs Vital Sign Date Time Temp Pulse Resp B/P (MAP) Pulse Ox O2 Delivery O2 Flow Rate FiO2 05/08/25 16:30 98.0 74 16 146/92 (110) 95 98.0 05/08/25 08:08 Room Air* 0 21 Total Intake and Output 05/07/25 05/07/25 05/08/25 15:00 23:00 07:00 Intake Total 50 ml 640 ml 50 ml Output Total 200 ml 475 ml Balance 50 ml 440 ml -425 ml medications Current Medications Medications Dose Ordered Sig/Amber Route Start Time Stop Time Status Last Admin Dose Admin Dextrose 50 ml UD PRN IV 05/01/25 20:45 Acetaminophen/ Hydrocodone Bitart 1 tab Q4HP PRN PO 05/01/25 20:45 05/08/25 02:54 1 TAB Acetaminophen 650 mg Q6HP PRN PO 05/01/25 20:45 05/03/25 22:05 650 MG Carvedilol 3.125 mg Q12HR PO 05/01/25 22:00 05/08/25 09:53 3.125 MG Atorvastatin Calcium 10 mg HS PO 05/01/25 22:00 05/07/25 22:21 10 MG Diagnostic Test (Pha) 1 strip ACHS 05/02/25 22:00 05/08/25 16:38 1 STRIP Insulin Human Lispro AC [place] 05/03/25 07:00 05/08/25 16:42 2 UNITS Insulin Glargine 12 units [facility] 05/04/25 22:00 05/07/25 22:21 12 UNITS Insulin Human Lispro 6 units [facility] 05/05/25 07:00 05/08/25 16:43 6 UNITS Hydromorphone HCl 2 mg Q4HP PRN PO 05/04/25 19:00 05/07/25 15:22 2 MG Sodium Chloride 10 ml QSHIFT@10,22 IV 05/07/25 22:00 05/08/25 09:49 10 ML Ceftriaxone Sodium 50 ml @ 100 mls/hr DAILY@09 IV 05/08/25 15:00 05/08/25 15:33 100 MLS/HR objective HEENT: No evidence of JVD, no oral ulcers. Pulmonary: Lungs are clear on auscultation bilaterally Cardiovascular S1-S2, no S3 or S4 Abdomen: Bowel sounds positive, soft no rebound tenderness Skin: No rash Neurological: Alert, oriented, no focal weakness laboratory and microbiology Laboratory Tests 05/08/25 06:33 Test 05/08/25 06:33 Range/Units Serum Glucose 161 H 74-106 mg/dL Assessment/Plan Assessment: YO, secondary to Sepsis, slight bump in creatinine Sepsis secondary to right foot cellulitis and infected non-healing wound Status post debridement, most recent May 06 CKD IIIa (Baseline Cr 1.5 mg/dl) Acute on chronic systolic CHF (EF: 40%) CAD s/p CABG h/o alcohol abuse Hyponatremia Plan: Resume NS Encourage p.o. intake continue broad spectrum IV antibiotics f/u blood cultures Continue Coreg 3.125 mg PO BID daily BMP Strict I&Os Make sure vancomycin is not supratherapeutic Thank you very much Dietary Evaluation Review Comments: 1. CCHO-60 diet 2. To support optimal wound healing, the pt should closely monitor and regulate oral intake while maintaining blood sugar levels within or near the normal range. Expected Outcomes/Goals: gradually healed wound, gradual wt loss Plan discussed with: Patient MABEL JIANG MD May 08, 2025 17:51
[2025-05-09 05:00] VITALS: BP 131/83; PULSE 80; RESP 20; TEMP 98.3; O2SAT 94
[2025-05-09 05:01] LABS: Hematocrit 39.4 % (41.0-53.0); Hemoglobin 13.0 g/dL (13.5-17.5); Mean Corpuscular Hemoglobin 30.2 pg (28.0-32.0); Mean Corpuscular Volume 91.5 fL (80.0-100.0); Nucleated Red Blood Cells % 0.2 %
[2025-05-09 05:28] LABS: Alanine Aminotransferase 10 U/L (7-40); Anion Gap 9 (5-15); BUN/Creatinine Ratio 28.4 (10.0-20.0); Calcium 9.0 mg/dL (8.7-10.4); Carbon Dioxide 22 mmol/L (20-31); Potassium 4.7 mmol/L (3.5-5.1); Sodium 139 mmol/L (136-145); Total Protein 7.5 g/dL (5.7-8.2)
[2025-05-09 05:32] LABS: Albumin 3.2 g/dL (3.2-4.8); Alkaline Phosphatase 197 U/L (46-116); Blood Urea Nitrogen 40 mg/dL (9-23); Chloride 108 mmol/L (98-107); Glucose 207 mg/dL (74-106)
[2025-05-09 05:38] LABS: Bilirubin, Total 0.4 mg/dL (0.2-1.0)
[2025-05-09 08:19] VITALS: PULSE 69
--- NOTE | 2025-05-09 09:31 | DVHPN2 ---
Reviewed: H&P Changes from previous H/P or p: No Changes General: Per HPI Eyes: No Pain, No Vision change, No Conjunctivae inflammation, No Eyelid inflammation, No Other, No Redness ENT: No Ear pain, No Ear discharge, No Nose pain, No Nose discharge, No Nose congestion, No Mouth pain, No Mouth swelling, No Throat pain, No Throat swelling, No Other Cardiovascular: No Chest Pain, No Palpitations, No Orthopnea, No Paroxysmal Noc. Dyspnea, No Edema, No Lt Headedness, No Other Respiratory: No Cough, No Dry, No Shortness of breath, No SOB with excertion, No Wheezing, No Hemoptysis, No Pleuritic Pain, No Sputum, No Other Gastrointestinal: No Nausea, No Vomiting, No Abdominal Pain, No Diarrhea, No Constipation, No Melena, No Hematochezia, No Other Genitourinary: No Dysuria, No Frequency, No Incontinence, No Hematuria, No Retention, No Other Musculoskeletal: other (Right lower extremity and right foot wound); No neck pain, No shoulder pain, No arm pain, No back pain, No hand pain, No leg pain, No foot pain Skin: No Rash, No Lesions, No Jaundice, No Bruising, No Other Objective Vitals Vital Signs Date Time Temp Pulse Resp B/P (MAP) Pulse Ox O2 Delivery O2 Flow Rate FiO2 05/09/25 08:10 Room Air* 0 21 05/09/25 05:00 98.3 80 20 131/83 (99) 94 98.3 Intake/Output Intake and Output 05/09/25 07:00 Intake Total 667 ml Output Total 950 ml Balance -283 ml Intake Oral 600 ml IV Total 67 ml Output Urine Total 950 ml Exam physical exam aox4 comfortable on RA clear breath sounds s1 s2 rrr abdomen soft no LE edema R foot wound, extensive cellulitis, puss seen Medications Current Medications Medications Dose Ordered Sig/Amber Route Start Time Stop Time Status Last Admin Dose Admin Dextrose 50 ml UD PRN IV 05/01/25 20:45 Acetaminophen/ Hydrocodone Bitart 1 tab Q4HP PRN PO 05/01/25 20:45 05/08/25 02:54 1 TAB Acetaminophen 650 mg Q6HP PRN PO 05/01/25 20:45 05/03/25 22:05 650 MG Carvedilol 3.125 mg Q12HR PO 05/01/25 22:00 05/08/25 09:53 3.125 MG Atorvastatin Calcium 10 mg HS PO 05/01/25 22:00 05/07/25 22:21 10 MG Diagnostic Test (Pha) 1 strip ACHS 05/02/25 22:00 05/08/25 16:38 1 STRIP Insulin Human Lispro AC [place] 05/03/25 07:00 05/08/25 16:42 2 UNITS Insulin Glargine 12 units HS [place] 05/04/25 22:00 05/07/25 22:21 12 UNITS Insulin Human Lispro 6 units AC CO 05/05/25 07:00 05/08/25 16:43 6 UNITS Hydromorphone HCl 2 mg Q4HP PRN PO 05/04/25 19:00 05/07/25 15:22 2 MG Sodium Chloride 10 ml QSHIFT@ IV 05/07/25 22:00 05/08/25 09:49 10 ML Ceftriaxone Sodium 50 ml @ 100 mls/hr DAILY@09 IV 05/08/25 15:00 05/08/25 15:33 100 MLS/HR Laboratory Results Laboratory Tests 05/09/25 04:17 Chemistry Test 05/09/25 04:17 Albumin 3.2 g/dL (3.2-4.8) Calcium Level 9.0 mg/dL (8.7-10.4) Total Protein 7.5 g/dL (5.7-8.2) LFT Test 05/09/25 04:17 Alanine Aminotransferase (ALT) 10 U/L (7-40) Alkaline Phosphatase 197 U/L (46-116) H Aspartate Amino Transferase (AST) 19 U/L (13-40) Total Bilirubin 0.4 mg/dL (0.2-1.0) HgA1c, TSH Test 05/08/25 14:48 Thyroid Stimulating Hormone (TSH) 1.79 uIU/mL (0.55-4.78) Urinalysis Test 05/05/25 14:16 Urine Color Yellow (Yellow) Urine Clarity Clear (Clear) Urine pH 5.5 (5.0-9.0) Urine Specific [place] 1.017 (1.001-1.035) Urine Protein 1+ (Negative) H Urine Ketones Trace (Negative) Urine Blood Negative /uL (Negative) Urine Nitrite Negative (Negative) Urine Bilirubin Negative (Negative) Urine Urobilinogen Normal mg/dL (Negative) Urine Leukocyte Esterase Negative /uL (Negative) Urine RBC <1 /hpf (0 - 3) Urine Microscopic WBC < 1 /HPF (0-3) Urine Squamous Epithelial Cells None seen /hpf (<5) Urine Bacteria None seen /hpf (None Seen) Urine Glucose 3+ mg/dL (Normal) H Blood Gas Results Test 05/08/25 15:44 Arterial Blood pH 7.491 (7.350-7.450) FiO2 % 21.0 Microbiology Microbiology Date/Time Source Procedure Growth Status 05/04/25 13:42 Foot Right Gram Stain - Final Resulted 05/04/25 13:42 Foot Right Anaerobic Culture - Preliminary Resulted 05/04/25 13:42 Aerobic Culture - Final Staphylococcus aureus Resulted 05/01/25 15:46 Blood Blood Culture - Final NO GROWTH AFTER 5 DAYS OF INCUBATION. Complete Labs and/or images reviewed: Labs reviewed by me, Image(s) reviewed by me Assessment/Plan Assessment/Plan 64 M with IDDM, CKD 3, HFrEF 40%, CAD s/p CABG, alcohol use admitted for R foot wound -een today, likely mssa, might deescalate pending final cult. 6 weeks abx -05/08: Discussed with Podiatry we will opt to do IV antibiotics PICC line to be inserted today, IV antibiotics ceftriaxone 1 g daily for 6 weeks, social consult placed. Deescalate dapto and meropenem to ceftriaxone. 05/09: Patient to get IV antibiotics at SNF, there was not enough support to do at home. Did a quick workup for change in mental status, ammonia, TSH, CO2 were normal range without concern. Patient this morning is A&O x4. Is unclear we will concerns family has we will reach out to them. PICC line to be inserted today. Pending SNF placement). --I am notified by RN that patient gets confused at night, pulled out his PICC line. We will try to get IV access again continue IV medications. Initial workup was negative. We will get HIV, RPR/trip antibody, CT head, neurology eval. For altered mental status. We will get 1-1 sitter, changed to window side bed, awake at daytime and frequent orientation. Start olanzapine 10 daily, Lovenox 40, patient worked with physical therapy today. labs ekg imaging reviewed assessment and plan IDDM uncontrolled sepsis YO VMN On CKD HFrEF 40$ chornic systolic HF CAD s/p CABG alcohol use ruled out OM non healing ulcer HAGMA plan: basal bolus ISS IVF vanc and Zosyn dc > switch to cefepime and dapto > ctx only podiatry consult MRI renal rec appreciated trend cr pain mgmt diet diabetic dvt ppx lovenox full code Plan discussed with: Patient My Orders Orders - ELI BEATTY MD Procedure Category Date Status Time * Access Manager CONS 05/08/25 Transmitted Consult Ceftriaxone 1gm/50ml PHA 05/08/25 In Process (Rocephin) 15:00 * Picc Line Consult CONS 05/08/25 Transmitted 14:52 Abg W/ Co-Ox RT 05/08/25 Logged 15:14 Pt Request For Service PT 05/08/25 Logged 16:23 Date of Service: May 09, 2025 Billing Provider: ELI BEATTY MD Common Visit Codes: [id number] INP/OBS CARE(HIGH) ELI BEATTY MD May 09, 2025 09:31
--- NOTE | 2025-05-09 10:39 | DVH ---
COMPUTERIZED TOMOGRAPHY OF THE HEAD WITHOUT CONTRAST REASON FOR STUDY: Change in cognitive status COMPARISON: None TECHNIQUE: Helical tomographic scans were obtained through the brain. 2-D coronal and sagittal refor matted images are provided. Radiation optimization: All CT scans at this facility use at least one of these dose optimization techniques: Automated exposure control mA and/or kV adjustment per patient s ize (includes targeted exams where dose is matched to clinical indication) or iterative reconstructio n. RADIATION DOSE: CTDI: 61 mGy DLP: 1105 mGy-cm FINDINGS: No suspicious intracranial hyperdensity to suggest acute blood. There is no mass effect n or midline shift. There is severe generalized volume loss with compensatory enlargement of the CSF sp aces. There is no hydrocephalus. The suprasellar cistern is intact. There are scattered periventricul ar and deep white matter hypodensities that are most consistent with chronic microangiopathic changes . The calvarium is intact. The visualized mastoid air cells and paranasal sinuses are clear. IMPRESSION: No acute intracranial abnormality. Severe generalized volume loss with chronic small vessel ischemic change.
[2025-05-09] MEDS: OLANZapine 5 MG TAB PO SCH (11:13)
[2025-05-09] MEDS: LACTULOSE 20Gm/30ML SOLN PO SCH (11:15)
[2025-05-09] MEDS: ENOXAPARIN SOD 40 MG/0.4 ML SYRINGE SC SCH (11:16)
[2025-05-09] MEDS: SODIUM CHLORIDE 0.9% 1,000 ML IV SCH ×2 (12:19→18:35)
[2025-05-09 13:00] VITALS: BP 130/81; PULSE 68; RESP 18; TEMP 98.3; O2SAT 95
--- NOTE | 2025-05-09 13:33 | DVHINCON2 ---
Date of service: May 09, [address] Kenisha Price Reason for Consultation Assess mental status History of Present Illness Mr. Morales is a 64 years old ambidextrous gentleman with a history of hypertension, diabetes, dyslipidemia, coronary artery disease, he was brought to the [facility] on 05/01[facility]2025 with a chief company of right foot wound. At this time, he is awake, oriented to person, place, good social skills, but is not able to provide history. He told me that he woke up in the hospital, without knowing how and why he was in the hospital According to his , concerning the wound in the right sole, she brought him to the hospital for medical attention. The patient did not have memory probable confusion/ALOC before he came to the hospital The patient has had tingling, numbness, pain in the feet, and wound in the right sole since 08/2024, the patient refused medical attention or treatment, he has no history of memory difficulty, stroke, seizure In the hospital, the patient is found to have right foot abscess, and he went through right foot I and D on 05/06/2025, he also has confusion Blood culture, 05/01/2025: No growth Wound culture, 05/04/2025: Staphylococcus aureus Urinalysis, 05/11/2025: No UTI WBC/HB/PLT/MCV, 05/01/2025: 15.8/446/23/91.1, 05/09/2025: 9.5/13/260/91.5 ESR, 05/02/2025: 80 BUN/CR, 05/09/2025: 40/1.41 GFR, 05/09/2025: 56 HGB A1c, 05/02/2025: 9.9 NH3, 05/08/2025: <10 TSH, 05/08/2025: 1+ CT head, 05/09/2025: No acute intracranial abnormality. Severe generalized volume loss with chronic small vessel ischemic change. MRI right foot, 05/03/2025: 1. Cellulitis and subcutaneous emphysema in the lateral forefoot deep to the 5th metatarsal bone. 2. No MR evidence of osteomyelitis in the right foot. 3. Edema in the intrinsic muscles of the foot may reflect myositis or denervation. Past Medical History Hypertension, diabetes, dyslipidemia, coronary artery disease, heart attack. No history of stroke, seizure, or memory difficulty Past Surgical History CABG in 2013 Family History: Patient reports no known family medical history. Family History Coronary artery disease, heart attack Social History He was tobacco smoke, he drinks alcohol excessively. No history of drug abuse Allergies: Coded Allergies: NO KNOWN ALLERGIES (Unverified , 12/17/24) Home Meds Active Scripts Empagliflozin (Jardiance) 10 Mg Tab, 10 MG PO DAILY for 30 Days, #30 TAB Prov:SHAKEEL POWELL INVENTORY ADMINISTRATOR 12/23/24 Atorvastatin Calcium (ATORVASTATIN CALCIUM) 20 Mg Tab, 1 TAB PO DAILY, #30 TAB 5 Refills Prov:JOSEPH POWELLPH INVENTORY ADMINISTRATOR 12/23/24 Metoprolol Succinate (Toprol Xl) 25 Mg Tab, 1 TAB PO DAILY, #30 TAB 5 Refills Prov:SHAKEEL POWELL INVENTORY ADMINISTRATOR 12/23/24 Reported Medications Omeprazole (Omeprazole Dr) 20 Mg Cap, 1 CAP PO QAM for 90 Days, #90 05/04/25 Metformin Hydrochloride (Metformin Hcl) 1,000 Mg Tab, 1 TAB PO BID for 90 Days, #180 05/04/25 Ergocalciferol (Vitamin D) 50,000 Unit Cap, 1 CAP PO QWEEKLY for 28 Days, #4 05/04/25 Current Medications Current Medications Medications (Trade) Dose Ordered Sig/Amber Route PRN Reason Start Time Stop Time Status Last Admin Ceftriaxone Sodium 50 ml @ 100 mls/hr DAILY@09 IV 05/08/25 15:00 05/09/25 12:13 Sodium Chloride 1,000 ml @ 50 mls/hr Q20H IV 05/08/25 18:00 05/09/25 08:00 DC 05/09/25 12:19 Lactulose 15 ml BID PO 05/09/25 10:00 05/09/25 11:15 Enoxaparin Sodium (Lovenox) 40 mg DAILY SC 05/09/25 10:00 05/09/25 11:16 Olanzapine (ZyPREXA Tablet) 10 mg DAILY PO 05/09/25 10:00 05/09/25 11:13 Review of Systems As above, the other systems are negative Vital Signs Vital Signs Date Time Temp Pulse Resp B/P (MAP) Pulse Ox O2 Delivery O2 Flow Rate FiO2 05/09/25 10:51 67 146/84 10/18/25 08:10 Room Air* 0 21 05/09/25 05:00 98.3 20 94 98.3 Physical Exam GENERAL EXAM: General: the patient is well developed and nourished. No acute distress. HEENT: Normocephalic, neck is supple, no carotid bruits. No mass. RESPIRATORY: Normal respiratory effort with symmetrical lung expansion. Lungs clear to auscultation. CARDIOVASCULAR: Regular rate and rhythm with no murmurs. S1, S2. ABDOMEN: Soft, nontender, normal bowel sound MUSCULOSKELETAL EXAM: Skin of the distal lower extremities is dark, thin. Dressing of the right foot is dry. No tenderness to palpation in the neck NEUROLOGICAL: MENTAL STATUS: See above SPEECH, LANGUAGE, HIGHER CORTICAL FUNCTION: no aphasia or dysathria. CRANIAL NERVES: #2: Intact visual laird to confrontation. The optic discs were sharp.. #3,4,6: Pupils are equal, round and reactive. EOMs full and conjugate. No nystagmus. #5: Facial sensation intact in all three divisions bilaterally. Mandibular strength intact. #7: Facial muscles symmetrical and strength intact. #8: Hearing grossly normal to voice. #9,10: Uvula and soft palate rise in the midline. Swallow and voice are normal. #11: Trapezius and sternomastoid strength intact bilaterally. #12: Tongue midline. No fasciculations or atrophy. SENSATION: Sensation to touch and pinprick is diminished distally in the lower extremities MOTOR: Normal tone in the upper and lower extremity. Mild intrinsic muscle atrophy in both hands. No fasciculations. No abnormal movements or posturing. Muscle strength of the major groups in the upper extremities is 5/5. Muscle strength of the major groups in the lower extremities is 5/5. REFLEXES: Deep tendon reflexes are symmetric, diminished in the ankles. No pathological reflexes. CEREBELLAR/COORDINATION: Finger to nose is normal bilaterally. GAIT/STATION: deferred. Labs/Diagnostic Data Labs Test 05/09/25 11:19 05/09/25 10:18 05/09/25 04:17 05/08/25 15:44 Range/Units POC Glucose 181 H 70-106 mg/dl Treponema pallidum Antibody Non-reactive Negative HIV (1&2) Antibody Negative Negative White Blood Count 9.5 4.4-10.8 10^3/uL Red Blood Count 4.31 L 4.5-5.90 10^6/uL Hemoglobin 13.0 L 13.5-17.5 g/dL Hematocrit 39.4 L 41.0-53.0 % Mean Corpuscular Volume 91.5 80.0-100.0 fL Mean Corpuscular Hemoglobin 30.2 28.0-32.0 pg Mean Corpuscular Hemoglobin Concent 33.0 32.0-36.0 g/dL Red Cell Distribution Width 14.0 11.8-14.3 % Platelet Count 260 140-450 10^3/uL Mean Platelet Volume 7.7 6.9-10.8 fL Neutrophils (%) (Auto) 78.0 37.0-80.0 % Lymphocytes (%) (Auto) 9.6 L 10.0-50.0 % Monocytes (%) (Auto) 9.9 0.0-12.0 % Eosinophils (%) (Auto) 1.2 0.0-7.0 % Basophils (%) (Auto) 1.3 0.0-2.0 % Neutrophils # (Auto) 7.4 1.6-8.6 10 ^3/uL Lymphocytes # (Auto) 0.9 0.4-5.4 10 ^3/uL Monocytes # (Auto) 0.9 0-1.3 10 ^3/uL Eosinophils # (Auto) 0.1 0-0.8 10 ^3/uL Basophils # (Auto) 0.1 0-0.2 10 ^3/uL Nucleated Red Blood Cells 0.2 % Sodium Level 139 136-145 mmol/L Potassium Level 4.7 3.5-5.1 mmol/L Chloride Level 108 H 98-107 mmol/L Carbon Dioxide Level 22 20-31 mmol/L Anion Gap 9 5-15 Blood Urea Nitrogen 40 #H 9-23 mg/dL Creatinine 1.41 H 0.700-1.30 mg/dL Glomerular Filtration Rate Calc 56 >90 mL/min BUN/Creatinine Ratio 28.4 H 10.0-20.0 Serum Glucose 207 H 74-106 mg/dL Calcium Level 9.0 8.7-10.4 mg/dL Total Bilirubin 0.4 0.2-1.0 mg/dL Aspartate Amino Transferase (AST) 19 13-40 U/L Alanine Aminotransferase (ALT) 10 7-40 U/L Alkaline Phosphatase 197 H 46-116 U/L Total Protein 7.5 5.7-8.2 g/dL Albumin 3.2 3.2-4.8 g/dL Blood Gas Specimen Type Arterial Blood Gas Sample Site Right radial Blood Gas Patient Temperature 37.0 Arterial Blood Date Drawn [id number] Arterial Blood pH 7.491 H 7.350-7.450 Arterial Blood Partial Pressure CO2 31.4 L 35.0-48.0 mmHg Arterial Blood Partial Pressure O2 68.3 L 83.0-108.0 mmHg Arterial Blood HCO3 23.4 21.0-28.0 mmol/L Arterial Blood Oxygen Saturation 93.4 L 94.0-98.0 % Arterial Blood Base Excess 0.9 -2.0-3.0 mmol/L Arterial Blood Oxyhemoglobin 92.8 L 94.0-98.0 % Arterial Blood Carboxyhemoglobin 0.3 L 0.5-1.5 % Arterial Blood Methemoglobin 0.3 0.0-1.5 % Kan Test Yes Blood Gas Total Hemoglobin 13.90 13.5-17.5 g/dL Blood Gas Modality Room air FiO2 % 21.0 Test 05/08/25 14:48 05/07/25 08:36 05/05/25 14:16 05/05/25 05:50 Range/Units Ammonia < 10 L 11-32 umol/L Thyroid Stimulating Hormone (TSH) 1.79 0.55-4.78 uIU/mL Prothrombin Time 11.8 9.3-11.8 sec Prothrombin Time INR 1.13 0.9-1.15 Activated Partial Thromboplast Time 30.3 24.5-34.5 SEC Urine Color Yellow Yellow Urine Clarity Clear Clear Urine pH 5.5 5.0-9.0 Urine Specific [place] 1.017 1.001-1.035 Urine Protein 1+ H Negative Urine Ketones Trace Negative Urine Blood Negative Negative /uL Urine Nitrite Negative Negative Urine Bilirubin Negative Negative Urine Urobilinogen Normal Negative mg/dL Urine Leukocyte Esterase Negative Negative /uL Urine RBC <1 0 - 3 /hpf Urine Microscopic WBC < 1 0-3 /HPF Urine Squamous Epithelial Cells None seen <5 /hpf Urine Bacteria None seen None Seen /hpf Urine Glucose 3+ H Normal mg/dL Creatine Kinase < 15 L 46-171 U/L Test 05/04/25 08:40 05/02/25 04:38 05/01/25 17:08 05/01/25 15:30 Range/Units Random Vancomycin Level 18.6 H 5-10 ug/mL Erythrocyte Sedimentation Rate 80 H 0-20 mm/hr Hemoglobin A1c 9.9 H <5.7 % A1C C-Reactive Protein High Sensitivity > 20.00 H <1.0 mg/dL Troponin I High Sensitivity 22 </=54 ng/L Lipase 58 H 12-53 U/L Lactic Acid Level 1.8 0.4-2.0 mmol/L B-Type Natriuretic Peptide 440.74 0-100 pg/mL Microbiology Date/Time Source Procedure Growth Status 05/04/25 13:42 Foot Right Gram Stain - Final Resulted 05/04/25 13:42 Foot Right Anaerobic Culture - Preliminary Resulted 05/04/25 13:42 Aerobic Culture - Final Staphylococcus aureus Resulted 05/01/25 15:46 Blood Blood Culture - Final NO GROWTH AFTER 5 DAYS OF INCUBATION. Complete Assessment Altered mental status with unremarkable CT head Likely the patient has metabolic encephalopathy Rule out other etiology Right foot abscess Right foot cellulitis Right foot necrotizing fasciitis ? Sepsis Diabetic polyneuropathy Alcoholism Plan/Recommendation Monitoring Supportive treatment Telemetry EEG MRI head IV antibiotics Thiamine supplementation Lipitor 10 mg daily DVT prophylaxis/Lovenox Haldol for agitation Wound care Foot care Daily foot inspection Wide, soft and protect she was only Quit alcohol Address bilateral hand muscle atrophy as outpatient More recommendation per clinical course Progress: Poor This medical document was created using an electronic medical record system with [employer] dictation system. Although this document has been carefully reviewed, there may still be some phonetic and typographical errors. These areas are purely typographical due to imperfections of the software programs, and do not reflect any compromise in the patient's medical care. Plan discussed with: Spouse, Other DUSTY GEORGES MD May 09, 2025 13:33
--- NOTE | 2025-05-09 15:02 | DVH ---
Exam: US US GUIDED VASCULAR ACCESS Clinical History: PICC LINE PLACEMENT Comparison: None Technique: Targeted sonographic evaluation of the soft tissues of the arm vein was obtained utilizing grayscale and color Doppler imaging. Findings/Impression: Sonographic assistance for PICC line placement. Please refer to procedural report for detailed findin gs.
--- NOTE | 2025-05-09 16:15 | DVHPN2 ---
Progress Note - Dictate Date Seen: May 09, 2025 Medical Necessity Reason Pt with a Central, PICC or Fol: No Subjective Patient has been more confused per RN vital signs Vital Sign Date Time Temp Pulse Resp B/P (MAP) Pulse Ox O2 Delivery O2 Flow Rate FiO2 05/09/25 13:00 98.3 68 18 130/81 (97) 95 98.3 05/09/25 08:10 Room Air* 0 21 Total Intake and Output 05/08/25 05/08/25 05/09/25 15:00 23:00 07:00 Intake Total 17 ml 550 ml 100 ml Output Total 650 ml 300 ml Balance 17 ml -100 ml -200 ml medications Current Medications Medications Dose Ordered Sig/Amber Route Start Time Stop Time Status Last Admin Dose Admin Dextrose 50 ml UD PRN IV 05/01/25 20:45 Acetaminophen/ Hydrocodone Bitart 1 tab Q4HP PRN PO 05/01/25 20:45 05/08/25 02:54 1 TAB Acetaminophen 650 mg Q6HP PRN PO 05/01/25 20:45 05/03/25 22:05 650 MG Carvedilol 3.125 mg Q12HR PO 05/01/25 22:00 05/09/25 10:51 3.125 MG Atorvastatin Calcium 10 mg HS PO 05/01/25 22:00 05/07/25 22:21 10 MG Diagnostic Test (Pha) 1 strip ACHS 05/02/25 22:00 05/09/25 11:17 1 STRIP Insulin Human Lispro AC [place] 05/03/25 07:00 05/09/25 11:48 1 UNITS Insulin Glargine 12 units [facility] 05/04/25 22:00 05/07/25 22:21 12 UNITS Insulin Human Lispro 6 units [facility] 05/05/25 07:00 05/09/25 11:48 6 UNITS Hydromorphone HCl 2 mg Q4HP PRN PO 05/04/25 19:00 05/07/25 15:22 2 MG Sodium Chloride 10 ml QSHIFT@ IV 05/07/25 22:00 05/08/25 09:49 10 ML Ceftriaxone Sodium 50 ml @ 100 mls/hr DAILY@09 IV 05/08/25 15:00 05/09/25 12:13 100 MLS/HR Lactulose 15 ml BID PO 05/09/25 10:00 05/09/25 11:15 15 ML Enoxaparin Sodium 40 mg DAILY SC 05/09/25 10:00 05/09/25 11:16 40 MG Olanzapine 10 mg DAILY PO 05/09/25 10:00 05/09/25 11:13 10 MG objective HEENT: No evidence of JVD, no oral ulcers. Pulmonary: Lungs are clear on auscultation bilaterally Cardiovascular S1-S2, no S3 or S4 Abdomen: Bowel sounds positive, soft no rebound tenderness Skin: No rash Neurological: Alert, oriented, no focal weakness laboratory and microbiology Laboratory Tests 05/09/25 04:17 Test 05/09/25 04:17 Range/Units Serum Glucose 207 H 74-106 mg/dL Assessment/Plan Assessment: Acute kidney injury secondary to sepsis Sepsis secondary to right foot cellulitis and infected non-healing wound Status post debridement, most recent May 06 CKD IIIa (Baseline Cr 1.5 mg/dl) Acute on chronic systolic CHF (EF: 40%) CAD s/p CABG h/o alcohol abuse Hyponatremia Plan: Continue NS drip Is being evaluated for confusion Encourage p.o. intake continue broad spectrum IV antibiotics f/u blood cultures Continue Coreg 3.125 mg PO BID daily BMP Strict I&Os Make sure vancomycin is not supratherapeutic Thank you very much Dietary Evaluation Review Comments: 1. CCHO-60 diet 2. To support optimal wound healing, the pt should closely monitor and regulate oral intake while maintaining blood sugar levels within or near the normal range. Expected Outcomes/Goals: gradually healed wound, gradual wt loss Plan discussed with: Patient MABEL JIANG MD May 09, 2025 16:15
[2025-05-09] MEDS ORDERED: HALOPERIDOL LACTATE 5 MG/ML INJ VIAL IM PRN (16:30)
[2025-05-09 17:00] VITALS: BP 145/96; PULSE 82; RESP 18; TEMP 98.6; O2SAT 95
[2025-05-09] MEDS: THIAMINE 100mg/ml INJ (200mg/2ml VIAL) IV ONE (18:31)
[2025-05-09] MEDS: LORazepam 2MG/ML-1ML VIAL IV ONE (18:32)
[2025-05-09 20:00] VITALS: PULSE 86
[2025-05-09 21:00] VITALS: BP 157/93; PULSE 85; RESP 18; TEMP 98.3; O2SAT 96
[2025-05-10] VITALS (7 sets, daily range): BP systolic 138–153; BP diastolic 81–99; PULSE 77–91; RESP 17–18; TEMP 97.5–97.9; O2SAT 93–96
[2025-05-10 07:04] LABS: Hematocrit 40.8 % (41.0-53.0); Hemoglobin 13.6 g/dL (13.5-17.5); Mean Corpuscular Hemoglobin 30.8 pg (28.0-32.0); Mean Corpuscular Volume 92.4 fL (80.0-100.0); Nucleated Red Blood Cells % 0.2 %
[2025-05-10 07:21] LABS: Alanine Aminotransferase 10 U/L (7-40); Albumin 3.3 g/dL (3.2-4.8); Anion Gap 11 (5-15); BUN/Creatinine Ratio 22.3 (10.0-20.0); Bilirubin, Total 0.5 mg/dL (0.2-1.0); Calcium 9.0 mg/dL (8.7-10.4); Carbon Dioxide 24 mmol/L (20-31); Chloride 105 mmol/L (98-107); Potassium 4.6 mmol/L (3.5-5.1); Sodium 140 mmol/L (136-145); Total Protein 8.0 g/dL (5.7-8.2)
[2025-05-10 07:40] LABS: Alkaline Phosphatase 185 U/L (46-116); Blood Urea Nitrogen 27 mg/dL (9-23); Glucose 112 mg/dL (74-106)
--- NOTE | 2025-05-10 10:17 | DVHPN2 ---
Reviewed: H&P Changes from previous H/P or p: No Changes General: Per HPI Eyes: No Pain, No Vision change, No Conjunctivae inflammation, No Eyelid inflammation, No Other, No Redness ENT: No Ear pain, No Ear discharge, No Nose pain, No Nose discharge, No Nose congestion, No Mouth pain, No Mouth swelling, No Throat pain, No Throat swelling, No Other Cardiovascular: No Chest Pain, No Palpitations, No Orthopnea, No Paroxysmal Noc. Dyspnea, No Edema, No Lt Headedness, No Other Respiratory: No Cough, No Dry, No Shortness of breath, No SOB with excertion, No Wheezing, No Hemoptysis, No Pleuritic Pain, No Sputum, No Other Gastrointestinal: No Nausea, No Vomiting, No Abdominal Pain, No Diarrhea, No Constipation, No Melena, No Hematochezia, No Other Genitourinary: No Dysuria, No Frequency, No Incontinence, No Hematuria, No Retention, No Other Musculoskeletal: other (Right lower extremity and right foot wound); No neck pain, No shoulder pain, No arm pain, No back pain, No hand pain, No leg pain, No foot pain Skin: No Rash, No Lesions, No Jaundice, No Bruising, No Other Objective Vitals Vital Signs Date Time Temp Pulse Resp B/P (MAP) Pulse Ox O2 Delivery O2 Flow Rate FiO2 05/10/25 05:00 97.5 91 18 149/99 (116) 97.5 05/10/25 01:00 93 05/09/25 20:00 Room Air* 0 21 Intake/Output Intake and Output 05/10/25 07:00 Intake Total 600 ml Output Total 501 ml Balance 99 ml Intake Oral 550 ml IV Total 50 ml Output Urine Total 500 ml Stool Total 1 ml # Voids 3 Exam physical exam aox4 comfortable on RA clear breath sounds s1 s2 rrr abdomen soft no LE edema R foot wound, extensive cellulitis, puss seen Medications Current Medications Medications Dose Ordered Sig/Amber Route Start Time Stop Time Status Last Admin Dose Admin Dextrose 50 ml UD PRN IV 05/01/25 20:45 Acetaminophen/ Hydrocodone Bitart 1 tab Q4HP PRN PO 05/01/25 20:45 05/10/25 05:14 1 TAB Acetaminophen 650 mg Q6HP PRN PO 05/01/25 20:45 05/03/25 22:05 650 MG Carvedilol 3.125 mg Q12HR PO 05/01/25 22:00 05/09/25 10:51 3.125 MG Atorvastatin Calcium 10 mg HS PO 05/01/25 22:00 05/09/25 22:47 10 MG Diagnostic Test (Pha) 1 strip ACHS 05/02/25 22:00 05/09/25 22:00 1 STRIP Insulin Human Lispro AC [place] 05/03/25 07:00 05/09/25 11:48 1 UNITS Insulin Glargine 12 units HS SC 05/04/25 22:00 05/09/25 22:49 12 UNITS Insulin Human Lispro 6 units AC SC 05/05/25 07:00 05/09/25 11:48 6 UNITS Hydromorphone HCl 2 mg Q4HP PRN PO 05/04/25 19:00 05/07/25 15:22 2 MG Sodium Chloride 10 ml QSHIFT@ IV 05/07/25 22:00 05/09/25 22:00 10 ML Ceftriaxone Sodium 50 ml @ 100 mls/hr DAILY@09 IV 05/08/25 15:00 05/10/25 08:51 100 MLS/HR Lactulose 15 ml BID PO 05/09/25 10:00 05/09/25 11:15 15 ML Enoxaparin Sodium 40 mg DAILY SC 05/09/25 10:00 05/09/25 11:16 40 MG Olanzapine 10 mg DAILY PO 05/09/25 10:00 05/09/25 11:13 10 MG Thiamine HCl 100 mg DAILY IV 05/10/25 10:00 Haloperidol Lactate 2.5 mg Q8HP PRN IM 05/09/25 16:30 Laboratory Results Laboratory Tests 05/10/25 05:18 Chemistry Test 05/10/25 05:18 Albumin 3.3 g/dL (3.2-4.8) Calcium Level 9.0 mg/dL (8.7-10.4) Total Protein 8.0 g/dL (5.7-8.2) LFT Test 05/10/25 05:18 Alanine Aminotransferase (ALT) 10 U/L (7-40) Alkaline Phosphatase 185 U/L (46-116) H Aspartate Amino Transferase (AST) 20 U/L (13-40) Total Bilirubin 0.5 mg/dL (0.2-1.0) Urinalysis Test 05/05/25 14:16 Urine Color Yellow (Yellow) Urine Clarity Clear (Clear) Urine pH 5.5 (5.0-9.0) Urine Specific [place] 1.017 (1.001-1.035) Urine Protein 1+ (Negative) H Urine Ketones Trace (Negative) Urine Blood Negative /uL (Negative) Urine Nitrite Negative (Negative) Urine Bilirubin Negative (Negative) Urine Urobilinogen Normal mg/dL (Negative) Urine Leukocyte Esterase Negative /uL (Negative) Urine RBC <1 /hpf (0 - 3) Urine Microscopic WBC < 1 /HPF (0-3) Urine Squamous Epithelial Cells None seen /hpf (<5) Urine Bacteria None seen /hpf (None Seen) Urine Glucose 3+ mg/dL (Normal) H Microbiology Microbiology Date/Time Source Procedure Growth Status 05/04/25 13:42 Foot Right Gram Stain - Final Resulted 05/04/25 13:42 Foot Right Anaerobic Culture - Preliminary Resulted 05/04/25 13:42 Aerobic Culture - Final Staphylococcus aureus Resulted 05/01/25 15:46 Blood Blood Culture - Final NO GROWTH AFTER 5 DAYS OF INCUBATION. Complete Labs and/or images reviewed: Labs reviewed by me, Image(s) reviewed by me Assessment/Plan Assessment/Plan 64 M with IDDM, CKD 3, HFrEF 40%, CAD s/p CABG, alcohol use admitted for R foot wound -een today, likely mssa, might deescalate pending final cult. 6 weeks abx -05/08: Discussed with Podiatry we will opt to do IV antibiotics PICC line to be inserted today, IV antibiotics ceftriaxone 1 g daily for 6 weeks, social consult placed. Deescalate dapto and meropenem to ceftriaxone. 05/09: Patient to get IV antibiotics at SNF, there was not enough support to do at home. Did a quick workup for change in mental status, ammonia, TSH, CO2 were normal range without concern. Patient this morning is A&O x4. Is unclear we will concerns family has we will reach out to them. PICC line to be inserted today. Pending SNF placement). --I am notified by RN that patient gets confused at night, pulled out his PICC line. We will try to get IV access again continue IV medications. Initial workup was negative. We will get HIV, RPR/trip antibody, CT head, neurology eval. For altered mental status. We will get 1-1 sitter, changed to window side bed, awake at daytime and frequent orientation. Start olanzapine 10 daily, Lovenox 40, patient worked with physical therapy today. 05/10: Little bit more sleepy today, we will olanzapine yesterday. No medications that can make him sleepy. Upon assessment he is able to wake arousable. Workup for change in mental status still appears to be negative. Continue IV antibiotics for his right foot infection.. He needs SNF for IV antibiotics 6 weeks. Ceftriaxone 1 g daily 6 weeks. labs ekg imaging reviewed assessment and plan IDDM uncontrolled sepsis YO VMN On CKD HFrEF 40$ chornic systolic HF CAD s/p CABG alcohol use ruled out OM non healing ulcer HAGMA plan: basal bolus ISS IVF vanc and Zosyn dc > switch to cefepime and dapto > ctx only podiatry consult MRI renal rec appreciated trend cr pain mgmt diet diabetic dvt ppx lovenox full code Plan discussed with: Patient Date of Service: May 10, 2025 Billing Provider: ELI BEATTY MD Common Visit Codes: [id number] INP/OBS CARE(HIGH) ELI BEATTY MD May 10, 2025 10:17
[2025-05-10] MEDS: THIAMINE 100mg/ml INJ (200mg/2ml VIAL) IV SCH (10:44)
--- NOTE | 2025-05-10 15:57 | DVHPN2 ---
Progress Note - Dictate Date Seen: May 10, 2025 Medical Necessity Reason Pt with a Central, PICC or Fol: No Subjective Patient is sleeping, is at bedside. vital signs Vital Sign Date Time Temp Pulse Resp B/P (MAP) Pulse Ox O2 Delivery O2 Flow Rate FiO2 05/10/25 11:44 90 145/90 05/10/25 08:00 17 Room Air* 0 21 05/10/25 05:00 97.5 97.5 05/10/25 01:00 93 Total Intake and Output 05/09/25 05/09/25 05/10/25 15:00 23:00 07:00 Intake Total 50 ml 500 ml 50 ml Output Total 401 ml 100 ml Balance 50 ml 99 ml -50 ml medications Current Medications Medications Dose Ordered Sig/Amber Route Start Time Stop Time Status Last Admin Dose Admin Dextrose 50 ml UD PRN IV 05/01/25 20:45 Acetaminophen/ Hydrocodone Bitart 1 tab Q4HP PRN PO 05/01/25 20:45 05/10/25 05:14 1 TAB Acetaminophen 650 mg Q6HP PRN PO 05/01/25 20:45 05/03/25 22:05 650 MG Carvedilol 3.125 mg Q12HR PO 05/01/25 22:00 05/10/25 10:44 3.125 MG Atorvastatin Calcium 10 mg HS PO 05/01/25 22:00 05/09/25 22:47 10 MG Diagnostic Test (Pha) 1 strip ACHS 05/02/25 22:00 05/10/25 11:30 1 STRIP Insulin Human Lispro AC [place] 05/03/25 07:00 05/09/25 11:48 1 UNITS Insulin Glargine 12 units [facility] 05/04/25 22:00 05/09/25 22:49 12 UNITS Insulin Human Lispro 6 units AC [place] 05/05/25 07:00 05/09/25 11:48 6 UNITS Hydromorphone HCl 2 mg Q4HP PRN PO 05/04/25 19:00 05/07/25 15:22 2 MG Sodium Chloride 10 ml QSHIFT@10,22 IV 05/07/25 22:00 05/10/25 10:00 10 ML Ceftriaxone Sodium 50 ml @ 100 mls/hr DAILY@09 IV 05/08/25 15:00 05/10/25 08:51 100 MLS/HR Lactulose 15 ml BID PO 05/09/25 10:00 05/10/25 10:44 15 ML Enoxaparin Sodium 40 mg DAILY SC 05/09/25 10:00 05/10/25 10:43 40 MG Olanzapine 10 mg DAILY PO 05/09/25 10:00 05/10/25 10:43 10 MG Thiamine HCl 100 mg DAILY IV 05/10/25 10:00 05/10/25 10:44 100 MG Haloperidol Lactate 2.5 mg Q8HP PRN IM 05/09/25 16:30 objective HEENT: No evidence of JVD, no oral ulcers. Pulmonary: Lungs are clear on auscultation bilaterally Cardiovascular S1-S2, no S3 or S4 Abdomen: Bowel sounds positive, soft no rebound tenderness Skin: No rash Neurological: Alert, oriented, no focal weakness laboratory and microbiology Laboratory Tests 05/10/25 05:18 Test 05/10/25 05:18 Range/Units Serum Glucose 112 H 74-106 mg/dL Assessment/Plan Assessment: Improving Acute kidney injury secondary to sepsis Sepsis secondary to right foot cellulitis and infected non-healing wound Status post debridement, most recent May 06 CKD IIIa (Baseline Cr 1.5 mg/dl) Acute on chronic systolic CHF (EF: 40%) CAD s/p CABG h/o alcohol abuse Hyponatremia Plan: Discontinue NS drip Is being evaluated for confusion Encourage p.o. intake continue broad spectrum IV antibiotics f/u blood cultures Continue Coreg 3.125 mg PO BID daily BMP Strict I&Os Pharmacy to dose antibiotics Patient is stable from the Nephrology perspective for discharge Thank you very much Dietary Evaluation Review Comments: 1. CCHO-60 diet 2. To support optimal wound healing, the pt should closely monitor and regulate oral intake while maintaining blood sugar levels within or near the normal range. Expected Outcomes/Goals: gradually healed wound, gradual wt loss Plan discussed with: Patient MABEL JIANG MD May 10, 2025 15:57
--- NOTE | 2025-05-10 22:00 | DVHPN2 ---
Progress Note - Dictate Date Seen: May 10, 2025 Medical Necessity Reason Pt with a Central, PICC or Fol: No Subjective Mr. Morales is a 64 years old ambidextrous gentleman with a history of hypertension, diabetes, dyslipidemia, coronary artery disease, he was brought to the [facility] on 05/01/2025 with a chief company of right foot wound. I have seen and examined the patient, talked to his nurse and sitter, the patient remained confused, but is better than yesterday Blood culture, 05/01/2025: No growth Wound culture, 05/04/2025: Staphylococcus aureus Urinalysis, 05/11/2025: No UTI WBC/HB/PLT/MCV, 05/01/2025: 15.8/446/23/91.1, 05/09/2025: 9.5/13/260/91.5 ESR, 05/02/2025: 80 BUN/CR, 05/09/2025: 40/1.41 GFR, 05/09/2025: 56 HGB A1c, 05/02/2025: 9.9 NH3, 05/08/2025: <10 TSH, 05/08/2025: 1+ CT head, 05/09/2025: No acute intracranial abnormality. Severe generalized volume loss with chronic small vessel ischemic change. MRI right foot, 05/03/2025: 1. Cellulitis and subcutaneous emphysema in the lateral forefoot deep to the 5th metatarsal bone. 2. No MR evidence of osteomyelitis in the right foot. 3. Edema in the intrinsic muscles of the foot may reflect myositis or denervation vital signs Vital Sign Date Time Temp Pulse Resp B/P (MAP) Pulse Ox O2 Delivery O2 Flow Rate FiO2 05/10/25 21:40 88 138/81 05/10/25 20:44 97.7 18 96 97.7 05/10/25 08:00 Room Air* 0 21 Total Intake and Output 05/09/25 05/09/25 05/10/25 15:00 23:00 07:00 Intake Total 50 ml 500 ml 50 ml Output Total 401 ml 100 ml Balance 50 ml 99 ml -50 ml medications Current Medications Medications Dose Ordered Sig/Amber Route Start Time Stop Time Status Last Admin Dose Admin Dextrose 50 ml UD PRN IV 05/01/25 20:45 Acetaminophen/ Hydrocodone Bitart 1 tab Q4HP PRN PO 05/01/25 20:45 05/10/25 05:14 1 TAB Acetaminophen 650 mg Q6HP PRN PO 05/01/25 20:45 05/03/25 22:05 650 MG Carvedilol 3.125 mg Q12HR PO 05/01/25 22:00 05/10/25 21:40 3.125 MG Atorvastatin Calcium 10 mg HS PO 05/01/25 22:00 05/10/25 21:39 10 MG Diagnostic Test (Pha) 1 strip ACHS 05/02/25 22:00 05/10/25 21:40 1 STRIP Insulin Human Lispro AC SC 05/03/25 07:00 05/10/25 17:15 1 UNITS Insulin Glargine 12 units HS SC 05/04/25 22:00 05/10/25 21:47 12 UNITS Insulin Human Lispro 6 units AC SC 05/05/25 07:00 05/09/25 11:48 6 UNITS Hydromorphone HCl 2 mg Q4HP PRN PO 05/04/25 19:00 05/07/25 15:22 2 MG Sodium Chloride 10 ml QSHIFT@10,22 IV 05/07/25 22:00 05/10/25 21:40 10 ML Ceftriaxone Sodium 50 ml @ 100 mls/hr DAILY@09 IV 05/08/25 15:00 05/10/25 08:51 100 MLS/HR Lactulose 15 ml BID PO 05/09/25 10:00 05/10/25 21:39 15 ML Enoxaparin Sodium 40 mg DAILY SC 05/09/25 10:00 05/10/25 10:43 40 MG Olanzapine 10 mg DAILY PO 05/09/25 10:00 05/10/25 10:43 10 MG Thiamine HCl 100 mg DAILY IV 05/10/25 10:00 05/10/25 10:44 100 MG Haloperidol Lactate 2.5 mg Q8HP PRN IM 05/09/25 16:30 objective General: the patient is well developed and nourished. No acute distress. MUSCULOSKELETAL EXAM: Skin of the distal lower extremities is dark, thin. Dressing of the right foot is dry. No tenderness to palpation in the neck MENTAL STATUS: See subjective SPEECH, LANGUAGE, HIGHER CORTICAL FUNCTION: no aphasia or dysathria. CRANIAL NERVES: Pupils are equal, round and reactive. EOMs full and conjugate. No nystagmus. Facial sensation intact in all three divisions bilaterally. Mandibular strength intact. Facial muscles symmetrical and strength intact. Tongue midline. No fasciculations or atrophy. SENSATION: Sensation to touch and pinprick is diminished distally in the lower extremities MOTOR: Normal tone in the upper and lower extremity. Mild intrinsic muscle atrophy in both hands. No fasciculations. No abnormal movements or posturing. Muscle strength of the major groups in the extremities is 5/5. REFLEXES: Deep tendon reflexes are symmetric, diminished in the ankles. No pathological reflexes. CEREBELLAR/COORDINATION: Finger to nose is normal bilaterally laboratory and microbiology Laboratory Tests 05/10/25 05:18 Test 05/10/25 05:18 Range/Units Serum Glucose 112 H 74-106 mg/dL Problem List Altered mental status with unremarkable CT head Likely the patient has metabolic encephalopathy Rule out other etiology Right foot abscess Right foot cellulitis Right foot necrotizing fasciitis ? Sepsis Diabetic polyneuropathy Alcoholism Assessment/Plan Monitoring Supportive treatment Telemetry EEG MRI head IV antibiotics Thiamine supplementation Lipitor 10 mg daily DVT prophylaxis/Lovenox Haldol for agitation Wound care Foot care Daily foot inspection Wide, soft and protect she was only Quit alcohol Address bilateral hand muscle atrophy as outpatient More recommendation per clinical course This medical document was created using an electronic medical record system with [employer] dictation system. Although this document has been carefully reviewed, there may still be some phonetic and typographical errors. These areas are purely typographical due to imperfections of the software programs, and do not reflect any compromise in the patient's medical care. Prognosis poor Dietary Evaluation Review Comments: 1. CCHO-60 diet 2. To support optimal wound healing, the pt should closely monitor and regulate oral intake while maintaining blood sugar levels within or near the normal range. Expected Outcomes/Goals: gradually healed wound, gradual wt loss Plan discussed with: Other DUSTY GEORGES MD May 10, 2025 22:00
[2025-05-11] VITALS (8 sets, daily range): BP systolic 120–144; BP diastolic 70–92; PULSE 86–93; RESP 16–20; TEMP 96.9–98.7; O2SAT 93–97
[2025-05-11] MEDS: LOPERAMIDE HCL 2 MG CAP/TAB PO ONE (01:32)
--- NOTE | 2025-05-11 10:35 | DVHPN2 ---
Progress Note - Dictate Date Seen: May 11, 2025 Medical Necessity Reason Pt with a Central, PICC or Fol: No Subjective Mr. Morales is a 64 years old ambidextrous gentleman with a history of hypertension, diabetes, dyslipidemia, coronary artery disease, he was brought to the [facility] on 05/01/2025 with a chief company of right foot wound. I have seen and examined the patient, talked to his nurse, he is doing better today, alert, oriented to person, place, he knows the year, socially appropriate Blood culture, 05/01/2025: No growth Wound culture, 05/04/2025: Staphylococcus aureus Urinalysis, 05/11/2025: No UTI WBC/HB/PLT/MCV, 05/01/2025: 15.8/446/23/91.1, 05/09/2025: 9.5/13/260/91.5 ESR, 05/02/2025: 80 BUN/CR, 05/09/2025: 40/1.41, 05/10/2025: 27/1.21 GFR, 05/09/2025: 56 HGB A1c, 05/02/2025: 9.9 NH3, 05/08/2025: <10 TSH, 05/08/2025: 1+ CT head, 05/09/2025: No acute intracranial abnormality. Severe generalized volume loss with chronic small vessel ischemic change. MRI right foot, 05/03/2025: 1. Cellulitis and subcutaneous emphysema in the lateral forefoot deep to the 5th metatarsal bone. 2. No MR evidence of osteomyelitis in the right foot. 3. Edema in the intrinsic muscles of the foot may reflect myositis or denervation vital signs Vital Sign Date Time Temp Pulse Resp B/P (MAP) Pulse Ox O2 Delivery O2 Flow Rate FiO2 05/11/25 10:10 89 120/90 05/11/25 08:51 98.7 20 94 98.7 05/10/25 20:00 Room Air* 0 21 Total Intake and Output 05/10/25 05/10/25 05/11/25 15:00 23:00 07:00 Intake Total 320 ml 500 ml Output Total 400 ml 900 ml Balance -80 ml -400 ml medications Current Medications Medications Dose Ordered Sig/Amber Route Start Time Stop Time Status Last Admin Dose Admin Dextrose 50 ml UD PRN IV 10/10/25 20:45 Acetaminophen 650 mg Q6HP PRN PO 05/01/25 20:45 05/03/25 22:05 650 MG Carvedilol 3.125 mg Q12HR PO 05/01/25 22:00 05/11/25 10:10 3.125 MG Atorvastatin Calcium 10 mg HS PO 05/01/25 22:00 05/10/25 21:39 10 MG Diagnostic Test (Pha) 1 strip ACHS 05/02/25 22:00 05/11/25 06:07 1 STRIP Insulin Human Lispro AC SC 05/03/25 07:00 05/11/25 06:09 1 UNITS Insulin Glargine 12 units HS ME 05/04/25 22:00 05/10/25 21:47 12 UNITS Insulin Human Lispro 6 units AC ME 05/05/25 07:00 05/11/25 06:10 6 UNITS Hydromorphone HCl 2 mg Q4HP PRN PO 05/04/25 19:00 05/07/25 15:22 2 MG Sodium Chloride 10 ml QSHIFT@10,22 IV 05/07/25 22:00 05/11/25 10:09 10 ML Ceftriaxone Sodium 50 ml @ 100 mls/hr DAILY@09 IV 05/08/25 15:00 05/11/25 10:08 100 MLS/HR Lactulose 15 ml BID PO 05/09/25 10:00 05/11/25 10:09 15 ML Enoxaparin Sodium 40 mg DAILY SC 05/09/25 10:00 05/11/25 10:11 40 MG Olanzapine 10 mg DAILY PO 05/09/25 10:00 05/11/25 10:11 10 MG Thiamine HCl 100 mg DAILY IV 05/10/25 10:00 05/11/25 10:08 100 MG Haloperidol Lactate 2.5 mg Q8HP PRN IM 05/09/25 16:30 objective General: the patient is well developed and nourished. No acute distress. MUSCULOSKELETAL EXAM: Skin of the distal lower extremities is dark, thin. Dressing of the right foot is dry. No tenderness to palpation in the neck MENTAL STATUS: See subjective SPEECH, LANGUAGE, HIGHER CORTICAL FUNCTION: no aphasia or dysathria. CRANIAL NERVES: Pupils are equal, round and reactive. EOMs full and conjugate. No nystagmus. Facial sensation intact in all three divisions bilaterally. Mandibular strength intact. Facial muscles symmetrical and strength intact. Tongue midline. No fasciculations or atrophy. SENSATION: Sensation to touch and pinprick is diminished distally in the lower extremities MOTOR: Normal tone in the upper and lower extremity. Mild intrinsic muscle atrophy in both hands. No fasciculations. No abnormal movements or posturing. Muscle strength of the major groups in the extremities is 5/5. REFLEXES: Deep tendon reflexes are symmetric, diminished in the ankles. No pathological reflexes. CEREBELLAR/COORDINATION: Finger to nose is normal bilaterally laboratory and microbiology Laboratory Tests 05/10/25 05:18 Test 05/10/25 05:18 Range/Units Serum Glucose 112 H 74-106 mg/dL Problem List Altered mental status with unremarkable CT head Likely the patient has metabolic encephalopathy Rule out other etiology Right foot abscess Right foot cellulitis Right foot necrotizing fasciitis ? Sepsis Diabetic polyneuropathy Alcoholism Assessment/Plan Monitoring Supportive treatment Telemetry Vitamin B12, folic acid EEG MRI head IV antibiotics Thiamine supplementation Lipitor 10 mg daily DVT prophylaxis/Lovenox Haldol for agitation Wound care Foot care Daily foot inspection Wide, soft and protect she was only Quit alcohol Address bilateral hand muscle atrophy as outpatient More recommendation per clinical course This medical document was created using an electronic medical record system with [employer] computerized dictation system. Although this document has been carefully reviewed, there may still be some phonetic and typographical errors. These areas are purely typographical due to imperfections of the software programs, and do not reflect any compromise in the patient's medical care. Prognosis poor Dietary Evaluation Review Comments: 1. CCHO-60 diet 2. To support optimal wound healing, the pt should closely monitor and regulate oral intake while maintaining blood sugar levels within or near the normal range. Expected Outcomes/Goals: gradually healed wound, gradual wt loss Plan discussed with: Other DUSTY GEORGES MD May 11, 2025 10:35
--- NOTE | 2025-05-11 14:31 | DVHPN2 ---
Assessment/Plan Assessment/Plan progress note 64 M with IDDM, CKD 3, HFrEF 40%, CAD s/p CABG, alcohol use admitted for R foot wound seen today, removed piccline, on and off confused. family not bedside physical exam aox3 comfortable on RA clear breath sounds s1 s2 rrr abdomen soft no LE edema R foot wound, extensive cellulitis, puss seen labs ekg imaging reviewed assessment and plan IDDM uncontrolled sepsis YO VMN On CKD HFrEF 40$ chornic systolic HF CAD s/p CABG alcohol use ruled out OM non healing ulcer HAGMA dementia vs delirium basal bolus ISS IVF vanc and Zosyn dc, switch to cefepime and dapto podiatry consult MRI renal rec appreciated trend cr pain mgmt need 6 weeks abx snf follow neuro diet diabetic dvt ppx lovenox full code Plan discussed with: Patient Date of Service: May 11, 2025 Billing Provider: BHARTI MAIN MD Common Visit Codes: [id number] INP/OBS CARE(HIGH) BHARTI MAIN MD May 11, 2025 14:31
--- NOTE | 2025-05-11 17:34 | DVHPN2 ---
Progress Note - Dictate Date Seen: May 11, 2025 Medical Necessity Reason Pt with a Central, PICC or Fol: No Subjective No acute issues. Underwent MRI of the brain today. No acute abnormality noted. vital signs Vital Sign Date Time Temp Pulse Resp B/P (MAP) Pulse Ox O2 Delivery O2 Flow Rate FiO2 05/11/25 16:36 98.1 90 20 127/80 (96) 95 98.1 05/10/25 20:00 Room Air* 0 21 Total Intake and Output 05/10/25 05/10/25 05/11/25 15:00 23:00 07:00 Intake Total 320 ml 500 ml Output Total 400 ml 900 ml Balance -80 ml -400 ml medications Current Medications Medications Dose Ordered Sig/Amber Route Start Time Stop Time Status Last Admin Dose Admin Dextrose 50 ml UD PRN IV 05/01/25 20:45 Acetaminophen 650 mg Q6HP PRN PO 05/01/25 20:45 05/03/25 22:05 650 MG Carvedilol 3.125 mg Q12HR PO 05/01/25 22:00 05/11/25 10:10 3.125 MG Atorvastatin Calcium 10 mg HS PO 05/01/25 22:00 05/10/25 21:39 10 MG Diagnostic Test (Pha) 1 strip ACHS 05/02/25 22:00 05/11/25 11:54 1 STRIP Insulin Human Lispro AC MO 05/03/25 07:00 05/11/25 06:09 1 UNITS Insulin Glargine 12 units [facility] 05/04/25 22:00 05/10/25 21:47 12 UNITS Insulin Human Lispro 6 units [facility] 05/05/25 07:00 05/11/25 12:11 6 UNITS Hydromorphone HCl 2 mg Q4HP PRN PO 05/04/25 19:00 05/11/25 16:17 2 MG Sodium Chloride 10 ml QSHIFT@ IV 05/07/25 22:00 05/11/25 10:09 10 ML Ceftriaxone Sodium 50 ml @ 100 mls/hr DAILY@09 IV 05/08/25 15:00 05/11/25 10:08 100 MLS/HR Lactulose 15 ml BID PO 05/09/25 10:00 05/11/25 10:09 15 ML Enoxaparin Sodium 40 mg DAILY SC 05/09/25 10:00 05/11/25 10:11 40 MG Olanzapine 10 mg DAILY PO 05/09/25 10:00 05/11/25 10:11 10 MG Thiamine HCl 100 mg DAILY IV 05/10/25 10:00 05/11/25 10:08 100 MG Haloperidol Lactate 2.5 mg Q8HP PRN IM 05/09/25 16:30 objective HEENT: No evidence of JVD, no oral ulcers. Pulmonary: Lungs are clear on auscultation bilaterally Cardiovascular S1-S2, no S3 or S4 Abdomen: Bowel sounds positive, soft no rebound tenderness Skin: No rash Neurological: No focal deficits laboratory and microbiology Laboratory Tests 05/10/25 05:18 Test 05/10/25 05:18 Range/Units Serum Glucose 112 H 74-106 mg/dL Problem List Improving Acute kidney injury secondary to sepsis Sepsis secondary to right foot cellulitis and infected non-healing wound Status post debridement, most recent May 06 CKD IIIa (Baseline Cr 1.5 mg/dl) Acute on chronic systolic CHF (EF: 40%) CAD s/p CABG h/o alcohol abuse Hyponatremia Assessment/Plan Plan: MRI of brain with a normal limits. GFR at baseline. Continue with IV antibiotics. We will sign off. Dietary Evaluation Review Comments: 1. CCHO-60 diet 2. To support optimal wound healing, the pt should closely monitor and regulate oral intake while maintaining blood sugar levels within or near the normal range. Expected Outcomes/Goals: gradually healed wound, gradual wt loss Plan discussed with: SUSAN Govea MD May 11, 2025 17:34
--- NOTE | 2025-05-11 18:05 | DVH ---
CLINICAL HISTORY: Mental status change. TECHNIQUE: Routine multiplanar imaging of the brain was performed without gadolinium contrast. COMPARISON: CT HEAD WITHOUT CONTRAST on DOS: 05/09/25, MRI MRI R FOOT WO CONTRAST on DOS: 05/03/25 FINDINGS: There is no abnormal restricted diffusion to suggest acute infarction. There is [id number]-[id number] brain volume loss. Few scattered T2 FLAIR hyperintense foci within the whit e matter both cerebral hemispheres is of doubtful clinical significance. There is no evidence for acute ischemic changes, mass, mass effect, or extra-axial fluid collection. There is no hydrocephalus or midline shift. The cerebral sulci and subarachnoid cisterns are not effa khushboo. The imaged paranasal sinuses are clear. The globes are intact. The midline structures, including the corpus callosum, are unremarkable. The intracranial flow voids are maintained. IMPRESSION: No acute intracranial abnormality seen no evidence for acute infarct Ktrb-vc-ucbniked brain volume
[2025-05-12] VITALS (8 sets, daily range): BP systolic 115–144; BP diastolic 46–84; PULSE 80–98; RESP 14–18; TEMP 97.2–98.6; O2SAT 89–98
[2025-05-12 07:14] LABS: INR 1.13 (0.9-1.15); Partial Thromboplastin Time 31.8 SEC (24.5-34.5); Prothrombin Time 11.8 sec (9.3-11.8)
--- NOTE | 2025-05-12 09:57 | DVHPN2 ---
Progress Note - Dictate Date Seen: May 12, 2025 Medical Necessity Reason Pt with a Central, PICC or Fol: No Subjective Mr. Morales is a 64 years old ambidextrous gentleman with a history of hypertension, diabetes, dyslipidemia, coronary artery disease, he was brought to the [facility] on 05/01/2025 with a chief company of right foot wound. I have seen and examined the patient, talked to his nurse, he is doing fine, alert, oriented to person, place, he knows the year, month and date, socially appropriate He still has confusion, he pulls his lines Blood culture, 05/01/2025: No growth Wound culture, 05/04/2025: Staphylococcus aureus Urinalysis, 05/11/2025: No UTI WBC/HB/PLT/MCV, 05/01/2025: 15.8/446/23/91.1, 05/09/2025: 9.5/13/260/91.5 ESR, 05/02/2025: 80 BUN/CR, 05/09/2025: 40/1.41, 05/10/2025: 27/1.21 GFR, 05/09/2025: 56 HGB A1c, 05/02/2025: 9.9 NH3, 05/08/2025: <10 TSH, 05/08/2025: 1+ CT head, 05/09/2025: No acute intracranial abnormality. Severe generalized volume loss with chronic small vessel ischemic change. MRI head, 05/11/2025: No acute intracranial abnormality seen no evidence for acute infarct Rqcs-nj-dhwtzfib brain volume MRI right foot, 05/03/2025: 1. Cellulitis and subcutaneous emphysema in the lateral forefoot deep to the 5th metatarsal bone. 2. No MR evidence of osteomyelitis in the right foot. 3. Edema in the intrinsic muscles of the foot may reflect myositis or denervation vital signs Vital Sign Date Time Temp Pulse Resp B/P (MAP) Pulse Ox O2 Delivery O2 Flow Rate FiO2 05/12/25 08:30 89 18 142/84 (103) 92 05/12/25 05:00 97.7 97.7 05/11/25 20:00 Room Air* 0 21 Total Intake and Output 05/11/25 05/11/25 05/12/25 15:00 23:00 07:00 Intake Total 1160 ml 450 ml Output Total 250 ml 300 ml Balance 910 ml 150 ml medications Current Medications Medications Dose Ordered Sig/Amber Route Start Time Stop Time Status Last Admin Dose Admin Dextrose 50 ml UD PRN IV 05/01/25 20:45 Acetaminophen 650 mg Q6HP PRN PO 05/01/25 20:45 05/03/25 22:05 650 MG Carvedilol 3.125 mg Q12HR PO 05/01/25 22:00 05/11/25 21:59 3.125 MG Atorvastatin Calcium 10 mg HS PO 05/01/25 22:00 05/11/25 21:59 10 MG Diagnostic Test (Pha) 1 strip ACHS 05/02/25 22:00 05/12/25 06:26 1 STRIP Insulin Human Lispro AC SC 05/03/25 07:00 05/12/25 06:29 1 UNITS Insulin Glargine 12 units [facility] 05/04/25 22:00 05/11/25 22:03 12 UNITS Insulin Human Lispro 6 units [facility] 05/05/25 07:00 05/12/25 06:29 6 UNITS Hydromorphone HCl 2 mg Q4HP PRN PO 05/04/25 19:00 05/12/25 06:26 2 MG Sodium Chloride 10 ml QSHIFT@ IV 05/07/25 22:00 05/11/25 22:00 10 ML Ceftriaxone Sodium 50 ml @ 100 mls/hr DAILY@09 IV 05/08/25 15:00 05/11/25 10:08 100 MLS/HR Lactulose 15 ml BID PO 05/09/25 10:00 05/11/25 21:59 15 ML Enoxaparin Sodium 40 mg DAILY SC 05/09/25 10:00 05/11/25 10:11 40 MG Olanzapine 10 mg DAILY PO 05/09/25 10:00 05/11/25 10:11 10 MG Thiamine HCl 100 mg DAILY IV 05/10/25 10:00 05/11/25 10:08 100 MG Haloperidol Lactate 2.5 mg Q8HP PRN IM 05/09/25 16:30 objective General: the patient is well developed and nourished. No acute distress. MUSCULOSKELETAL EXAM: Skin of the distal lower extremities is dark, thin. Dressing of the right foot is dry. No tenderness to palpation in the neck MENTAL STATUS: See subjective SPEECH, LANGUAGE, HIGHER CORTICAL FUNCTION: no aphasia or dysathria. CRANIAL NERVES: Pupils are equal, round and reactive. EOMs full and conjugate. No nystagmus. Facial sensation intact in all three divisions bilaterally. Mandibular strength intact. Facial muscles symmetrical and strength intact. Tongue midline. No fasciculations or atrophy. SENSATION: Sensation to touch and pinprick is diminished distally in the lower extremities MOTOR: Normal tone in the upper and lower extremity. Mild intrinsic muscle atrophy in both hands. No fasciculations. No abnormal movements or posturing. Muscle strength of the major groups in the extremities is 5/5. REFLEXES: Deep tendon reflexes are symmetric, diminished in the ankles. No pathological reflexes. CEREBELLAR/COORDINATION: Finger to nose is normal bilaterally laboratory and microbiology Laboratory Tests 05/10/25 05:18 Test 05/10/25 05:18 Range/Units Serum Glucose 112 H 74-106 mg/dL Problem List Altered mental status with unremarkable CT head Likely the patient has metabolic encephalopathy Rule out other etiology Right foot abscess Right foot cellulitis Right foot necrotizing fasciitis ? Sepsis Diabetic polyneuropathy Alcoholism Assessment/Plan Monitoring Supportive treatment Telemetry Vitamin B12, folic acid EEG MRI head IV antibiotics Thiamine supplementation Lipitor 10 mg daily DVT prophylaxis/Lovenox Haldol for agitation Wound care Foot care Daily foot inspection Wide, soft and protect she was only Quit alcohol Address bilateral hand muscle atrophy as outpatient More recommendation per clinical course This medical document was created using an electronic medical record system with [employer] dictation system. Although this document has been carefully reviewed, there may still be some phonetic and typographical errors. These areas are purely typographical due to imperfections of the software programs, and do not reflect any compromise in the patient's medical care. Prognosis poor Dietary Evaluation Review Comments: 1. CCHO-60 diet 2. To support optimal wound healing, the pt should closely monitor and regulate oral intake while maintaining blood sugar levels within or near the normal range. Expected Outcomes/Goals: gradually healed wound, gradual wt loss Plan discussed with: DUSTY Fernandez MD May 12, 2025 09:57
--- NOTE | 2025-05-12 12:54 | DVHPN2 ---
Subjective The patient is a 64-year-old male with past medical history of diabetes mellitus, hyperlipidemia, and hypertension who presented to [facility] ED for evaluation of right lower extremity nonhealing wound. Patient states he has been managing his wound at home, but the wound has now gotten out of control, very painful, and significant malodorous. Patient was seen and evaluated in the ED, laboratory data shows WBC 15.8, platelets 223, sodium 131, potassium 4.5, BUN 51, creatinine 3.10, GFR 22, glucose 223, BNP 440.72, troponin 22, lipase 58, blood pressure 97/61, heart rate 80, temperature 97.6 F, O2 saturation 96% on room air. Right foot CT showed no evidence of osteomyelitis; subcutaneous adipose tissue edema along the plantar aspect of the midfoot to hindfoot; maintain elevated suspicious for osteomyelitis given the extensive soft tissue edema correlate with ESR/CRP. Patient was started on IV antibiotic regimen vancomycin, please see medication orders section in the computer. On my assessment, patient denied chest pain, no dizziness, headache, diaphoresis, shortness of breaths, no abdominal pain, diarrhea, nausea, vomiting, fever, chills. Patient was admitted for further evaluation and medical management. Reviewed: H&P Changes from previous H/P or p: No Changes General: Per HPI Eyes: No Pain, No Vision change, No Conjunctivae inflammation, No Eyelid inflammation, No Other, No Redness ENT: No Ear pain, No Ear discharge, No Nose pain, No Nose discharge, No Nose congestion, No Mouth pain, No Mouth swelling, No Throat pain, No Throat swelling, No Other Cardiovascular: No Chest Pain, No Palpitations, No Orthopnea, No Paroxysmal Noc. Dyspnea, No Edema, No Lt Headedness, No Other Respiratory: No Cough, No Dry, No Shortness of breath, No SOB with excertion, No Wheezing, No Hemoptysis, No Pleuritic Pain, No Sputum, No Other Gastrointestinal: No Nausea, No Vomiting, No Abdominal Pain, No Diarrhea, No Constipation, No Melena, No Hematochezia, No Other Genitourinary: No Dysuria, No Frequency, No Incontinence, No Hematuria, No Retention, No Other Musculoskeletal: other (Right lower extremity and right foot wound); No neck pain, No shoulder pain, No arm pain, No back pain, No hand pain, No leg pain, No foot pain Skin: No Rash, No Lesions, No Jaundice, No Bruising, No Other Objective Vitals Vital Signs Date Time Temp Pulse Resp B/P (MAP) Pulse Ox O2 Delivery O2 Flow Rate FiO2 05/12/25 10:28 89 142/84 05/12/25 08:30 18 92 05/12/25 08:00 Nasal Cannula* 2 28 05/12/25 05:00 97.7 97.7 Intake/Output Intake and Output 05/12/25 07:00 Intake Total 1610 ml Output Total 550 ml Balance 1060 ml Intake Oral 1610 ml Output Urine Total 550 ml # Voids 2 # Bowel Movements 3 Exam Dermatological: Skin is dry with mild erythema and some maceration around the wound site No gross deformities noted Mild non-pitting edema present bilaterally Right lateral foot area of fluctuance and lilia necrosis with purulent drainage Vascular: Dorsalis pedis and posterior tibial pulses are 1+ bilaterally Capillary refill is under 2 seconds Skin temperature is warm bilaterally Neurologic: Protective sensation is absent on the plantar forefoot bilaterally Monofilament testing reveals decreased sensation in multiple plantar sites Musculoskeletal: Range of motion at the ankle and MTP joints is within normal limits. Strength is 5/5 in all tested muscle groups. Gait is antalgic due to offloading of the affected limb. Medications Current Medications Medications Dose Ordered Sig/Amber Route Start Time Stop Time Status Last Admin Dose Admin Dextrose 50 ml UD PRN IV 05/01/25 20:45 Acetaminophen 650 mg Q6HP PRN PO 05/01/25 20:45 05/03/25 22:05 650 MG Carvedilol 3.125 mg Q12HR PO 05/01/25 22:00 05/12/25 10:28 3.125 MG Atorvastatin Calcium 10 mg HS PO 05/01/25 22:00 05/11/25 21:59 10 MG Diagnostic Test (Pha) 1 strip ACHS 05/02/25 22:00 05/12/25 06:26 1 STRIP Insulin Human Lispro AC SC 05/03/25 07:00 05/12/25 06:29 1 UNITS Insulin Glargine 12 units HS SC 05/04/25 22:00 05/11/25 22:03 12 UNITS Insulin Human Lispro 6 units AC SC 05/05/25 07:00 05/12/25 06:29 6 UNITS Hydromorphone HCl 2 mg Q4HP PRN PO 05/04/25 19:00 05/12/25 06:26 2 MG Sodium Chloride 10 ml QSHIFT@, IV 05/07/25 22:00 05/12/25 10:27 10 ML Ceftriaxone Sodium 50 ml @ 100 mls/hr DAILY@09 IV 05/08/25 15:00 05/12/25 10:26 100 MLS/HR Lactulose 15 ml BID PO 05/09/25 10:00 05/12/25 10:27 15 ML Enoxaparin Sodium 40 mg DAILY SC 05/09/25 10:00 05/12/25 10:28 40 MG Olanzapine 10 mg DAILY PO 05/09/25 10:00 05/12/25 10:27 10 MG Thiamine HCl 100 mg DAILY IV 05/10/25 10:00 05/12/25 10:26 100 MG Haloperidol Lactate 2.5 mg Q8HP PRN IM 05/09/25 16:30 Laboratory Results Laboratory Tests 05/10/25 05:18 Coagulation Test 05/12/25 05:55 Prothrombin Time 11.8 sec (9.3-11.8) Prothrombin Time INR 1.13 (0.9-1.15) Activated Partial Thromboplast Time 31.8 SEC (24.5-34.5) Urinalysis Test 05/05/25 14:16 Urine Color Yellow (Yellow) Urine Clarity Clear (Clear) Urine pH 5.5 (5.0-9.0) Urine Specific [place] 1.017 (1.001-1.035) Urine Protein 1+ (Negative) H Urine Ketones Trace (Negative) Urine Blood Negative /uL (Negative) Urine Nitrite Negative (Negative) Urine Bilirubin Negative (Negative) Urine Urobilinogen Normal mg/dL (Negative) Urine Leukocyte Esterase Negative /uL (Negative) Urine RBC <1 /hpf (0 - 3) Urine Microscopic WBC < 1 /HPF (0-3) Urine Squamous Epithelial Cells None seen /hpf (<5) Urine Bacteria None seen /hpf (None Seen) Urine Glucose 3+ mg/dL (Normal) H Microbiology Microbiology Date/Time Source Procedure Growth Status 05/04/25 13:42 Foot Right Gram Stain - Final Complete 05/04/25 13:42 Foot Right Anaerobic Culture - Final Complete 05/04/25 13:42 Aerobic Culture - Final Staphylococcus aureus Complete 05/01/25 15:46 Blood Blood Culture - Final NO GROWTH AFTER 5 DAYS OF INCUBATION. Complete Assessment/Plan Assessment/Plan ASSESSMENT: Patient is a 64 year old seen on the floor follow up s/p foot I&D PLAN: - The patients chart was reviewed, clinical findings were discussed with the patient, the etiologies of the conditions were discussed in detail, and a treatment plan was agreed to at this time, with both oral and written instructions provided. - Wound appears to be stable - Recommend wound vac on the heel - 6 weeks of IV abx - Follow up with me when discharged All questions were answered and concerns addressed to the patient's satisfaction. The patient was given the phone number to the clinic and was told how to make contact with the clinic should any concerns or questions arise. Patient understands that if any questions or concerns arise prior to the next appointment, we should be contacted immediately. FOLLOW-UP: Continue to follow while inpatient Plan discussed with: Patient Problem List: (1) Cellulitis (2) Diabetic foot ulcer (3) Elevated lipase (4) Hyperglycemia due to diabetes mellitus (5) Acute exacerbation of congestive heart failure (6) Cellulitis of right foot (7) Diabetes mellitus with foot ulcer (8) Hyperkalemia (9) Hyperglycemia (10) Chest pain (11) Abnormal CT scan (12) Elevated troponin Visit Coding Podiatry Date of Service if different f: May 12, 2025 Billing Provider: BRIAN ANDREW DPM Podiatry Common Visit Codes: [id number] INP/OBS CARE(HIGH) BRIAN ANDREW DPM May 12, 2025 12:54
[2025-05-12] MEDS: LIDOCAINE 1% (LOCAL ANESTH.) PF 5ml SDV ID ONE (15:45)
--- NOTE | 2025-05-12 16:15 | DVH ---
EXAM: XY CHEST PORTABLE HISTORY: PICC LINE PLACEMENT. COMPARISON: XY CHEST PORTABLE on DOS: 12/22/24, XY CHEST PORTABLE on DOS: 12/17/24, CT scan of the chest dated 12/17/2024. TECHNIQUE: Portable AP view of the chest was performed. FINDINGS: There is a right upper extremity PICC line with its tip in the mid SVC. There are irregular opacities in the right mid to lower lung, improved compared with prior chest x-ray. There is curvilinear scar ring in the left mid to lower lung. There are calcific pleural plaques on the left. The heart is enl arged. There are postoperative changes of CABG. There is ectasia of the central pulmonary arteries, b suyapa characterized on prior CT scan. IMPRESSION: 1. Right upper extremity PICC line in good position. 2. Opacities in the bilateral mid to lower lungs likely representing scarring, less likely atelectasi s or pneumonia. 3. Pulmonary arterial hypertension. 4. Calcific pleural plaques may be due to asbestos related pleural disease or old granulomatous disea se. 5. Cardiomegaly and postoperative changes of the heart.
--- NOTE | 2025-05-12 17:47 | DVHDS2 ---
Discharge Summary Date of Admission May 01, 2025 at 21:35 Date of Discharge: May 12, 2025 Labs/Diagnostic Data: Laboratory Results Test 05/12/25 17:16 05/12/25 05:55 05/11/25 11:31 05/10/25 05:18 POC Glucose 122 mg/dl (70-106) Prothrombin Time 11.8 sec (9.3-11.8) Prothrombin Time INR 1.13 (0.9-1.15) Activated Partial Thromboplast Time 31.8 SEC (24.5-34.5) Vitamin B12 Level 704 pg/mL (211-911) Folic Acid 13.39 ng/mL (>5.38) White Blood Count 9.1 10^3/uL (4.4-10.8) Red Blood Count 4.42 10^6/uL (4.5-5.90) Hemoglobin 13.6 g/dL (13.5-17.5) Hematocrit 40.8 % (41.0-53.0) Mean Corpuscular Volume 92.4 fL (80.0-100.0) Mean Corpuscular Hemoglobin 30.8 pg (28.0-32.0) Mean Corpuscular Hemoglobin Concent 33.3 g/dL (32.0-36.0) Red Cell Distribution Width 14.6 % (11.8-14.3) Platelet Count 279 10^3/uL (140-450) Mean Platelet Volume 7.7 fL (6.9-10.8) Neutrophils (%) (Auto) 69.6 % (37.0-80.0) Lymphocytes (%) (Auto) 14.9 % (10.0-50.0) Monocytes (%) (Auto) 12.4 % (0.0-12.0) Eosinophils (%) (Auto) 2.3 % (0.0-7.0) Basophils (%) (Auto) 0.8 % (0.0-2.0) Neutrophils # (Auto) 6.3 10 ^3/uL (1.6-8.6) Lymphocytes # (Auto) 1.4 10 ^3/uL (0.4-5.4) Monocytes # (Auto) 1.1 10 ^3/uL (0-1.3) Eosinophils # (Auto) 0.2 10 ^3/uL (0-0.8) Basophils # (Auto) 0.1 10 ^3/uL (0-0.2) Nucleated Red Blood Cells 0.2 % Sodium Level 140 mmol/L (136-145) Potassium Level 4.6 mmol/L (3.5-5.1) Chloride Level 105 mmol/L (98-107) Carbon Dioxide Level 24 mmol/L (20-31) Anion Gap 11 (5-15) Blood Urea Nitrogen 27 mg/dL (9-23) Creatinine 1.21 mg/dL (0.700-1.30) Glomerular Filtration Rate Calc 67 mL/min (>90) BUN/Creatinine Ratio 22.3 (10.0-20.0) Serum Glucose 112 mg/dL (74-106) Calcium Level 9.0 mg/dL (8.7-10.4) Total Bilirubin 0.5 mg/dL (0.2-1.0) Aspartate Amino Transferase (AST) 20 U/L (13-40) Alanine Aminotransferase (ALT) 10 U/L (7-40) Alkaline Phosphatase 185 U/L (46-116) Total Protein 8.0 g/dL (5.7-8.2) Albumin 3.3 g/dL (3.2-4.8) Test 05/09/25 10:18 05/08/25 15:44 05/08/25 14:48 05/05/25 14:16 Treponema pallidum Antibody Non-reactive (Negative) HIV (1&2) Antibody Negative (Negative) Blood Gas Specimen Type Arterial Blood Gas Sample Site Right radial Blood Gas Patient Temperature 37.0 Arterial Blood Date Drawn [id number] Arterial Blood pH 7.491 (7.350-7.450) Arterial Blood Partial Pressure CO2 31.4 mmHg (35.0-48.0) Arterial Blood Partial Pressure O2 68.3 mmHg (83.0-108.0) Arterial Blood HCO3 23.4 mmol/L (21.0-28.0) Arterial Blood Oxygen Saturation 93.4 % (94.0-98.0) Arterial Blood Base Excess 0.9 mmol/L (-2.0-3.0) Arterial Blood Oxyhemoglobin 92.8 % (94.0-98.0) Arterial Blood Carboxyhemoglobin 0.3 % (0.5-1.5) Arterial Blood Methemoglobin 0.3 % (0.0-1.5) Kan Test Yes Blood Gas Total Hemoglobin 13.90 g/dL (13.5-17.5) Blood Gas Modality Room air FiO2 % 21.0 Ammonia < 10 umol/L (11-32) Thyroid Stimulating Hormone (TSH) 1.79 uIU/mL (0.55-4.78) Urine Color Yellow (Yellow) Urine Clarity Clear (Clear) Urine pH 5.5 (5.0-9.0) Urine Specific [place] 1.017 (1.001-1.035) Urine Protein 1+ (Negative) Urine Ketones Trace (Negative) Urine Blood Negative /uL (Negative) Urine Nitrite Negative (Negative) Urine Bilirubin Negative (Negative) Urine Urobilinogen Normal mg/dL (Negative) Urine Leukocyte Esterase Negative /uL (Negative) Urine RBC <1 /hpf (0 - 3) Urine Microscopic WBC < 1 /HPF (0-3) Urine Squamous Epithelial Cells None seen /hpf (<5) Urine Bacteria None seen /hpf (None Seen) Urine Glucose 3+ mg/dL (Normal) Test 05/05/25 05:50 05/04/25 08:40 05/02/25 04:38 05/01/25 17:08 Creatine Kinase < 15 U/L (46-171) Random Vancomycin Level 18.6 ug/mL (5-10) Erythrocyte Sedimentation Rate 80 mm/hr (0-20) Hemoglobin A1c 9.9 % A1C (<5.7) C-Reactive Protein High Sensitivity > 20.00 mg/dL (<1.0) Troponin I High Sensitivity 22 ng/L (</=54) Lipase 58 U/L (12-53) Test 05/01/25 15:30 Lactic Acid Level 1.8 mmol/L (0.4-2.0) B-Type Natriuretic Peptide 440.74 pg/mL (0-100) Other Laboratory Tests 05/10/25 05:18 Brief Hx & Hospital Course: 64 M with IDDM, CKD 3, HFrEF 40%, CAD s/p CABG, alcohol use admitted for R foot wound. seen by podiatry, had debridement. abx switched due to YO on CKD. culture showed MSSA, deescalated to ceftriaxone. patient on and off confused, seen by neuro. With prior alcohol use, cannot r/o wernicke/korsakof. wound closed, need to get iv abx for 6 weeks. plan for SNF for iv abx, picc placed. Condition at Discharge: Good Final Diagnosis/Problems List IDDM uncontrolled sepsis YO VMN On CKD HFrEF 40% chornic systolic HF CAD s/p CABG alcohol use ruled out OM non healing ulcer, MSSA HAGMA dementia vs delirium wernicke/korsakof? Discharge Disposition: Usp Facility Discharge Instruct/Medications Diet: Consistent carbohydrate, Cardiac 2g Na,low cholest Activity: No Restrictions, As Tolerated Follow Up/Referral: dr ribeiro podiatry pcp Scheduled Atorvastatin Calcium (Atorvastatin Calcium), 1 TAB PO DAILY Empagliflozin (Jardiance), 10 MG PO DAILY Ergocalciferol (Vitamin D), 1 CAP PO QWEEKLY, (Reported) Metformin Hydrochloride (Metformin Hcl), 1 TAB PO BID, (Reported) Metoprolol Succinate (Toprol Xl), 1 TAB PO DAILY Omeprazole (Omeprazole Dr), 1 CAP PO QAM, (Reported) Discharge Statement: "Patient was advised to return to the ER or call 911 if any headaches, dizziness, shortness of breath, chest pain, abdominal pain, bleeding, fevers, or worsening of medical condition. Patient was counseled about treatment plan, medications, possible side effects, patientverbalized understanding. All questions were answered to the best of my ability. This discharge took greater then 30 minutes in planning, reviewing documentation, counseling the patient, and discussing with other team members." ASSESSMENT ASSESSMENT Assessment non healing ulcer, gas gangrene Date of Service: May 12, 2025 Billing Provider: BHARTI MAIN MD Common Visit Codes: [id number] DISCH DAY >30min BHARTI MAIN MD May 12, 2025 17:47
[2025-05-12] MEDS: SODIUM CHLOR 0.9% PF (SALINE LOCK) 10ML VIAL/SYR IV SCH (21:45)
[2025-05-13] VITALS (8 sets, daily range): BP systolic 125–144; BP diastolic 66–86; PULSE 81–90; RESP 17–18; TEMP 97.5–98.6; O2SAT 90–95
[2025-05-13 07:35] LABS: Anion Gap 9 (5-15); Carbon Dioxide 23 mmol/L (20-31); Sodium 142 mmol/L (136-145)
[2025-05-13 07:42] LABS: BUN/Creatinine Ratio 20.6 (10.0-20.0)
[2025-05-13 07:46] LABS: Blood Urea Nitrogen 28 mg/dL (9-23); Calcium 8.5 mg/dL (8.7-10.4); Chloride 110 mmol/L (98-107); Glucose 164 mg/dL (74-106); Potassium 5.2 mmol/L (3.5-5.1)
--- NOTE | 2025-05-13 15:09 | DVHPN2 ---
Assessment/Plan Assessment/Plan progress note 64 M with IDDM, CKD 3, HFrEF 40%, CAD s/p CABG, alcohol use admitted for R foot wound seen today, for dc to snif iv abx. and woundvac physical exam aox3 comfortable on RA clear breath sounds s1 s2 rrr abdomen soft no LE edema R foot wound, extensive cellulitis, puss seen labs ekg imaging reviewed assessment and plan IDDM uncontrolled sepsis YO VMN On CKD HFrEF 40$ chornic systolic HF CAD s/p CABG alcohol use ruled out OM non healing ulcer HAGMA dementia vs delirium basal bolus ISS IVF vanc and Zosyn dc, switch to cefepime and dapto podiatry consult MRI renal rec appreciated trend cr pain mgmt need 6 weeks abx snf follow neuro diet diabetic dvt ppx lovenox full code Plan discussed with: Patient My Orders Orders - BHARTI MAIN MD Procedure Category Date Status Time Us Guided Vascular US 05/12/25 Taken Access 15:34 Sodium Chloride Lock PHA 05/12/25 In Process (Saline Lock Ns) 22:00 Chest Portable XY 05/12/25 Resulted 15:34 Discharge DISCHARGE 05/12/25 Transmitted 15:53 * Wound Consult CONS 05/13/25 Transmitted Sodium Zirconium PHA 05/13/25 Logged Cyclosilicate 15:15 Basic Metabolic Panel LAB 05/14/25 Verified 04:00 Date of Service: May 13, 2025 Billing Provider: BHARTI MAIN MD Common Visit Codes: [id number] INP/OBS CARE(MOD) BHARTI MAIN MD May 13, 2025 15:09
[2025-05-13] MEDS: SODIUM ZIRCONIUM CYCL 10 GM PAK PO ONE (17:41)
[2025-05-14] VITALS (7 sets, daily range): BP systolic 121–146; BP diastolic 80–105; PULSE 83–99; RESP 18–20; TEMP 97.8–98.4; O2SAT 91–94
--- NOTE | 2025-05-14 00:30 | DVHEEG2 ---
Neurology EEG Procedural Note Procedural Note EXAM DATE: 05/11/25 REFERRING DOCTOR: Dr. Georges TECHNIQUE: Eighteen channels of EEG, 2 channels of EOG, and 1 channel of EKG were recorded using the International 10/20 system. CLINICAL DATA: The patient was referred for an EEG evaluation for the evidence of seizure disorder. MEDICATIONS: See the chart BACKGROUND ACTIVITY: While the patient was awake, the background activity consisted of fairly regulated 8-9Hz rhythmic waveforms, symmetrically distributed over both posterior quadrants and was reactive to eye opening. ACTIVATION: Hyperventilation: Not done Photic Stimulation: No photic responsiveness Sleep: Noticed IMPRESSION: This is a normal EEG. No focal, lateralized, or epileptiform features are noted. If clinically indicated to rule out a seizure disorder, recommend repeat EEG with sleep deprivation. The EKG channel showed an irregular heart rate of 96 per [place] [address] DUSTY GEORGES MD May 14, 2025 00:30
[2025-05-14 08:07] LABS: Potassium 4.9 mmol/L (3.5-5.1); Sodium 138 mmol/L (136-145)
[2025-05-14 08:08] LABS: Anion Gap 8 (5-15); Carbon Dioxide 21 mmol/L (20-31)
[2025-05-14 08:13] LABS: BUN/Creatinine Ratio 15.4 (10.0-20.0); Blood Urea Nitrogen 19 mg/dL (9-23)
[2025-05-14 08:40] LABS: Calcium 8.6 mg/dL (8.7-10.4); Chloride 109 mmol/L (98-107); Glucose 110 mg/dL (74-106)
--- NOTE | 2025-05-14 09:37 | DVHPN2 ---
Assessment/Plan Assessment/Plan progress note 64 M with IDDM, CKD 3, HFrEF 40%, CAD s/p CABG, alcohol use admitted for R foot wound seen today, dc to snf for abx and pending woundvac physical exam aox3 comfortable on RA clear breath sounds s1 s2 rrr abdomen soft no LE edema R foot wound, extensive cellulitis, puss seen labs ekg imaging reviewed assessment and plan IDDM uncontrolled sepsis YO VMN On CKD HFrEF 40$ chornic systolic HF CAD s/p CABG alcohol use ruled out OM non healing ulcer HAGMA dementia vs delirium basal bolus ISS IVF vanc and Zosyn dc, switch to cefepime and dapto podiatry consult MRI renal rec appreciated trend cr pain mgmt need 6 weeks abx snf follow neuro woundvac diet diabetic dvt ppx lovenox full code Plan discussed with: Patient My Orders Orders - BHARTI MAIN MD Procedure Category Date Status Time * [employer] CONS 05/13/25 Transmitted Consult Date of Service: May 14, 2025 Billing Provider: BHARTI MAIN MD Common Visit Codes: [id number] INP/OBS CARE(MOD) BHARTI MAIN MD May 14, 2025 09:36
--- NOTE | 2025-05-14 09:55 | DVHPN2 ---
Progress Note - Dictate Date Seen: May 14, 2025 Medical Necessity Reason Pt with a Central, PICC or Fol: No Subjective Mr. Morales is a 64 years old ambidextrous gentleman with a history of hypertension, diabetes, dyslipidemia, coronary artery disease, he was brought to the [facility] on 05/01/2025 with a chief company of right foot wound. I have seen and examined the patient, talked to his nurse, he is doing fine, alert, oriented to person, place, he knows the year, month and date, socially appropriate New complaints Blood culture, 05/01/2025: No growth Wound culture, 05/04/2025: Staphylococcus aureus Urinalysis, 05/11/2025: No UTI WBC/HB/PLT/MCV, 05/01/2025: 15.8/446/23/91.1, 05/09/2025: 9.5/13/260/91.5 ESR, 05/02/2025: 80 BUN/CR, 05/09/2025: 40/1.41, 05/10/2025: 27/1.21 GFR, 05/09/2025: 56 HGB A1c, 05/02/2025: 9.9 NH3, 05/08/2025: <10 Vitamin B12, 05/11/25: 704 Folic acid, 05/11/2025: 13.39 TSH, 05/08/2025: 1.79 EEG, 05/11/2025: Normal CT head, 05/09/2025: No acute intracranial abnormality. Severe generalized volume loss with chronic small vessel ischemic change. MRI head, 05/11/2025: No acute intracranial abnormality seen no evidence for acute infarct [id number] brain volume MRI right foot, 05/03/2025: 1. Cellulitis and subcutaneous emphysema in the lateral forefoot deep to the 5th metatarsal bone. 2. No MR evidence of osteomyelitis in the right foot. 3. Edema in the intrinsic muscles of the foot may reflect myositis or denervation vital signs Vital Sign Date Time Temp Pulse Resp B/P (MAP) Pulse Ox O2 Delivery O2 Flow Rate FiO2 05/14/25 09:13 97.8 05/14/25 09:00 94 18 146/91 (109) 94 05/13/25 20:00 Room Air* 0 21 Total Intake and Output 05/13/25 05/13/25 05/14/25 15:00 23:00 07:00 Intake Total 700 ml 450 ml 100 ml Output Total 1 ml Balance 700 ml 449 ml 100 ml medications Current Medications Medications Dose Ordered Sig/Amber Route Start Time Stop Time Status Last Admin Dose Admin Dextrose 50 ml UD PRN IV 05/01/25 20:45 Acetaminophen 650 mg Q6HP PRN PO 05/01/25 20:45 05/14/25 09:13 650 MG Carvedilol 3.125 mg Q12HR PO 05/01/25 22:00 05/13/25 21:02 3.125 MG Atorvastatin Calcium 10 mg HS PO 05/01/25 22:00 05/13/25 21:03 10 MG Diagnostic Test (Pha) 1 strip ACHS 05/02/25 22:00 05/14/25 06:16 1 STRIP Insulin Human Lispro AC SC 05/03/25 07:00 05/13/25 17:42 1 UNITS Insulin Glargine 12 units [facility] 05/04/25 22:00 05/13/25 21:29 12 UNITS Insulin Human Lispro 6 units [facility] 05/05/25 07:00 05/13/25 17:44 6 UNITS Sodium Chloride 10 ml QSHIFT@ IV 05/07/25 22:00 05/13/25 21:01 10 ML Ceftriaxone Sodium 50 ml @ 100 mls/hr DAILY@09 IV 05/08/25 15:00 05/14/25 09:12 100 MLS/HR Lactulose 15 ml BID PO 05/09/25 10:00 05/13/25 21:01 15 ML Enoxaparin Sodium 40 mg DAILY SC 05/09/25 10:00 05/13/25 08:59 40 MG Olanzapine 10 mg DAILY PO 05/09/25 10:00 05/13/25 08:59 10 MG Thiamine HCl 100 mg DAILY IV 05/10/25 10:00 05/13/25 09:00 100 MG Haloperidol Lactate 2.5 mg Q8HP PRN IM 05/09/25 16:30 Sodium Chloride 10 ml QSHIFT@10,22 IV 05/12/25 22:00 05/13/25 09:01 10 ML objective General: the patient is well developed and nourished. No acute distress. MUSCULOSKELETAL EXAM: Skin of the distal lower extremities is dark, thin. Dressing of the right foot is dry. No tenderness to palpation in the neck MENTAL STATUS: See subjective SPEECH, LANGUAGE, HIGHER CORTICAL FUNCTION: no aphasia or dysathria. CRANIAL NERVES: Pupils are equal, round and reactive. EOMs full and conjugate. No nystagmus. Facial sensation intact in all three divisions bilaterally. Mandibular strength intact. Facial muscles symmetrical and strength intact. Tongue midline. No fasciculations or atrophy. SENSATION: Sensation to touch and pinprick is diminished distally in the lower extremities MOTOR: Normal tone in the upper and lower extremity. Mild intrinsic muscle atrophy in both hands. No fasciculations. No abnormal movements or posturing. Muscle strength of the major groups in the extremities is 5/5. REFLEXES: Deep tendon reflexes are symmetric, diminished in the ankles. No pathological reflexes. CEREBELLAR/COORDINATION: Finger to nose is normal bilaterally laboratory and microbiology Laboratory Tests 05/14/25 06:49 05/10/25 05:18 Test 05/14/25 06:49 Range/Units Serum Glucose 110 H 74-106 mg/dL Problem List Altered mental status with unremarkable CT head Likely the patient has metabolic encephalopathy Rule out other etiology Right foot abscess Right foot cellulitis Right foot necrotizing fasciitis ? Sepsis Diabetic polyneuropathy Alcoholism Assessment/Plan Monitoring Supportive treatment Telemetry IV antibiotics x 6 weeks Thiamine supplementation Lipitor 10 mg daily DVT prophylaxis/Lovenox Haldol for agitation Wound care Foot care Daily foot inspection Wide, soft and protect she was only Quit alcohol Address bilateral hand muscle atrophy as outpatient More recommendation per clinical course This medical document was created using an electronic medical record system with [employer] dictation system. Although this document has been carefully reviewed, there may still be some phonetic and typographical errors. These areas are purely typographical due to imperfections of the software programs, and do not reflect any compromise in the patient's medical care. Prognosis poor Dietary Evaluation Review Comments: 1. CCHO-60 diet 2. To support optimal wound healing, the pt should closely monitor and regulate oral intake while maintaining blood sugar levels within or near the normal range. Expected Outcomes/Goals: gradually healed wound, gradual wt loss Plan discussed with: Patient, Other DUSTY GEORGES MD May 14, 2025 09:55
[2025-05-15] VITALS (8 sets, daily range): BP systolic 124–157; BP diastolic 68–98; PULSE 75–95; RESP 16–19; TEMP 97.7–99.3; O2SAT 92–96
--- NOTE | 2025-05-15 19:42 | DVHPN2 ---
Assessment/Plan Assessment/Plan progress note 64 M with IDDM, CKD 3, HFrEF 40%, CAD s/p CABG, alcohol use admitted for R foot wound. seen by podiatry, debridement and colesd. will req 6 weeks of abx seen today, accepted to [facility]. pending bed. physical exam aox3 comfortable on RA clear breath sounds s1 s2 rrr abdomen soft no LE edema R foot wound, extensive cellulitis, puss seen labs ekg imaging reviewed assessment and plan IDDM uncontrolled sepsis YO VMN On CKD HFrEF 40$ chornic systolic HF CAD s/p CABG alcohol use ruled out OM non healing ulcer HAGMA dementia vs delirium basal bolus ISS IVF vanc and Zosyn dc, switch to cefepime and dapto podiatry consult MRI renal rec appreciated trend cr pain mgmt need 6 weeks abx snf follow neuro woundvac diet diabetic dvt ppx lovenox full code Plan discussed with: Patient Date of Service: May 15, 2025 Billing Provider: BHARTI MAIN MD Common Visit Codes: [id number] INP/OBS CARE(MOD) BHARTI MAIN MD May 15, 2025 19:42
[2025-05-16] VITALS (8 sets, daily range): BP systolic 118–151; BP diastolic 60–94; PULSE 59–93; RESP 16–20; TEMP 97.5–98.2; O2SAT 92–100
--- NOTE | 2025-05-16 12:06 | DVHPN2 ---
Reviewed: Care Plan, H&P Changes from previous H/P or p: No Changes General: Per HPI Eyes: No Pain, No Vision change, No Conjunctivae inflammation, No Eyelid inflammation, No Other, No Redness ENT: No Ear pain, No Ear discharge, No Nose pain, No Nose discharge, No Nose congestion, No Mouth pain, No Mouth swelling, No Throat pain, No Throat swelling, No Other Cardiovascular: No Chest Pain, No Palpitations, No Orthopnea, No Paroxysmal Noc. Dyspnea, No Edema, No Lt Headedness, No Other Respiratory: No Cough, No Dry, No Shortness of breath, No SOB with excertion, No Wheezing, No Hemoptysis, No Pleuritic Pain, No Sputum, No Other Gastrointestinal: No Nausea, No Vomiting, No Abdominal Pain, No Diarrhea, No Constipation, No Melena, No Hematochezia, No Other Genitourinary: No Dysuria, No Frequency, No Incontinence, No Hematuria, No Retention, No Other Musculoskeletal: other (Right lower extremity and right foot wound); No neck pain, No shoulder pain, No arm pain, No back pain, No hand pain, No leg pain, No foot pain Skin: No Rash, No Lesions, No Jaundice, No Bruising, No Other Objective Vitals Vital Signs Date Time Temp Pulse Resp B/P (MAP) Pulse Ox O2 Delivery O2 Flow Rate FiO2 05/16/25 09:02 134/84 05/16/25 08:43 98.2 80 16 95 98.2 05/16/25 08:00 Room Air* 0 21 Intake/Output Intake and Output 05/16/25 07:00 Intake Total 350 ml Output Total 1400 ml Balance -1050 ml Intake Oral 350 ml Output Urine Total 1400 ml # Bowel Movements 1 Medications Current Medications Medications Dose Ordered Sig/Amber Route Start Time Stop Time Status Last Admin Dose Admin Dextrose 50 ml UD PRN IV 05/01/25 20:45 Acetaminophen 650 mg Q6HP PRN PO 05/01/25 20:45 05/16/25 04:20 650 MG Carvedilol 3.125 mg Q12HR PO 05/01/25 22:00 05/16/25 09:02 3.125 MG Atorvastatin Calcium 10 mg HS PO 05/01/25 22:00 05/15/25 21:36 10 MG Diagnostic Test (Pha) 1 strip ACHS 05/02/25 22:00 05/16/25 05:06 1 STRIP Insulin Human Lispro AC MD 05/03/25 07:00 05/16/25 11:49 1 UNITS Insulin Glargine 12 units HS MD 05/04/25 22:00 05/15/25 21:45 12 UNITS Insulin Human Lispro 6 units AC MD 05/05/25 07:00 05/15/25 11:30 6 UNITS Sodium Chloride 10 ml QSHIFT@ IV 05/07/25 22:00 05/16/25 09:08 10 ML Ceftriaxone Sodium 50 ml @ 100 mls/hr DAILY@09 IV 05/08/25 15:00 05/16/25 09:07 100 MLS/HR Lactulose 15 ml BID PO 05/09/25 10:00 05/16/25 09:01 15 ML Enoxaparin Sodium 40 mg DAILY SC 05/09/25 10:00 05/16/25 09:00 40 MG Olanzapine 10 mg DAILY PO 05/09/25 10:00 05/16/25 09:02 10 MG Thiamine HCl 100 mg DAILY IV 05/10/25 10:00 05/16/25 09:07 100 MG Haloperidol Lactate 2.5 mg Q8HP PRN IM 05/09/25 16:30 Sodium Chloride 10 ml QSHIFT@ IV 05/12/25 22:00 05/15/25 21:34 10 ML Laboratory Results Laboratory Tests 05/10/25 05:18 05/14/25 06:49 Urinalysis Test 05/05/25 14:16 Urine Color Yellow (Yellow) Urine Clarity Clear (Clear) Urine pH 5.5 (5.0-9.0) Urine Specific [place] 1.017 (1.001-1.035) Urine Protein 1+ (Negative) H Urine Ketones Trace (Negative) Urine Blood Negative /uL (Negative) Urine Nitrite Negative (Negative) Urine Bilirubin Negative (Negative) Urine Urobilinogen Normal mg/dL (Negative) Urine Leukocyte Esterase Negative /uL (Negative) Urine RBC <1 /hpf (0 - 3) Urine Microscopic WBC < 1 /HPF (0-3) Urine Squamous Epithelial Cells None seen /hpf (<5) Urine Bacteria None seen /hpf (None Seen) Urine Glucose 3+ mg/dL (Normal) H Microbiology Microbiology Date/Time Source Procedure Growth Status 05/04/25 13:42 Foot Right Gram Stain - Final Complete 05/04/25 13:42 Foot Right Anaerobic Culture - Final Complete 05/04/25 13:42 Aerobic Culture - Final Staphylococcus aureus Complete 05/01/25 15:46 Blood Blood Culture - Final NO GROWTH AFTER 5 DAYS OF INCUBATION. Complete Labs and/or images reviewed: Labs reviewed by me, Image(s) reviewed by me Assessment/Plan Assessment/Plan Covering For Dr. Bond Sepsis secondary to foot infection Controlled diabetes YO VMN On CKD HFrEF 40$ chornic systolic HF CAD s/p CABG alcohol use ruled out OM non healing ulcer cefepime and daptomycin Acute metabolic acidosis dementia vs delirium Continue Current management Patient is waiting for bed at [facility] Time Spent 65 minutes Plan discussed with: Patient Date of Service: May 16, 2025 Billing Provider: SUHAS ELLISON MD Common Visit Codes: [id number] CARE 30-74 MIN SUHAS ELLISON MD May 16, 2025 12:06
[2025-05-16] MEDS: HYDROcodone-ACET 10/325MG TAB PO PRN (14:56)
[2025-05-17] VITALS (8 sets, daily range): BP systolic 93–154; BP diastolic 57–95; PULSE 84–91; RESP 16–18; TEMP 97.7–98.7; O2SAT 91–96
--- NOTE | 2025-05-17 11:54 | DVHPN2 ---
Reviewed: Care Plan, H&P Changes from previous H/P or p: No Changes General: Per HPI Eyes: No Pain, No Vision change, No Conjunctivae inflammation, No Eyelid inflammation, No Other, No Redness ENT: No Ear pain, No Ear discharge, No Nose pain, No Nose discharge, No Nose congestion, No Mouth pain, No Mouth swelling, No Throat pain, No Throat swelling, No Other Cardiovascular: No Chest Pain, No Palpitations, No Orthopnea, No Paroxysmal Noc. Dyspnea, No Edema, No Lt Headedness, No Other Respiratory: No Cough, No Dry, No Shortness of breath, No SOB with excertion, No Wheezing, No Hemoptysis, No Pleuritic Pain, No Sputum, No Other Gastrointestinal: No Nausea, No Vomiting, No Abdominal Pain, No Diarrhea, No Constipation, No Melena, No Hematochezia, No Other Genitourinary: No Dysuria, No Frequency, No Incontinence, No Hematuria, No Retention, No Other Musculoskeletal: other (Right lower extremity and right foot wound); No neck pain, No shoulder pain, No arm pain, No back pain, No hand pain, No leg pain, No foot pain Skin: No Rash, No Lesions, No Jaundice, No Bruising, No Other Objective Vitals Vital Signs Date Time Temp Pulse Resp B/P (MAP) Pulse Ox O2 Delivery O2 Flow Rate FiO2 05/17/25 09:00 98.7 86 16 145/95 (112) 96 98.7 05/16/25 20:00 Room Air* 0 21 Intake/Output Intake and Output 05/17/25 07:00 Intake Total 1090 ml Output Total 1400 ml Balance -310 ml Intake Oral 1040 ml IV Total 50 ml Output Urine Total 1400 ml # Bowel Movements 1 Medications Current Medications Medications Dose Ordered Sig/Amber Route Start Time Stop Time Status Last Admin Dose Admin Dextrose 50 ml UD PRN IV 05/01/25 20:45 Acetaminophen 650 mg Q6HP PRN PO 05/01/25 20:45 05/16/25 04:20 650 MG Carvedilol 3.125 mg Q12HR PO 05/01/25 22:00 05/17/25 09:00 3.125 MG Atorvastatin Calcium 10 mg HS PO 05/01/25 22:00 05/16/25 21:24 10 MG Diagnostic Test (Pha) 1 strip ACHS 05/02/25 22:00 05/17/25 05:19 1 STRIP Insulin Human Lispro AC MS 05/03/25 07:00 05/16/25 11:49 1 UNITS Insulin Glargine 12 units [facility] 05/04/25 22:00 05/16/25 21:51 12 UNITS Insulin Human Lispro 6 units AC MS 05/05/25 07:00 05/15/25 11:30 6 UNITS Ceftriaxone Sodium 50 ml @ 100 mls/hr DAILY@09 IV 05/08/25 15:00 05/17/25 09:00 100 MLS/HR Lactulose 15 ml BID PO 05/09/25 10:00 05/16/25 21:25 15 ML Enoxaparin Sodium 40 mg DAILY SC 05/09/25 10:00 05/17/25 09:01 40 MG Olanzapine 10 mg DAILY PO 05/09/25 10:00 05/17/25 08:59 10 MG Thiamine HCl 100 mg DAILY IV 05/10/25 10:00 05/17/25 09:00 100 MG Haloperidol Lactate 2.5 mg Q8HP PRN IM 05/09/25 16:30 Sodium Chloride 10 ml QSHIFT@, IV 05/12/25 22:00 05/17/25 09:01 10 ML Acetaminophen/ Hydrocodone Bitart 1 tab Q6HP PRN PO 05/16/25 14:15 05/17/25 08:59 1 TAB Laboratory Results Laboratory Tests 05/10/25 05:18 05/14/25 06:49 Urinalysis Test 05/05/25 14:16 Urine Color Yellow (Yellow) Urine Clarity Clear (Clear) Urine pH 5.5 (5.0-9.0) Urine Specific [place] 1.017 (1.001-1.035) Urine Protein 1+ (Negative) H Urine Ketones Trace (Negative) Urine Blood Negative /uL (Negative) Urine Nitrite Negative (Negative) Urine Bilirubin Negative (Negative) Urine Urobilinogen Normal mg/dL (Negative) Urine Leukocyte Esterase Negative /uL (Negative) Urine RBC <1 /hpf (0 - 3) Urine Microscopic WBC < 1 /HPF (0-3) Urine Squamous Epithelial Cells None seen /hpf (<5) Urine Bacteria None seen /hpf (None Seen) Urine Glucose 3+ mg/dL (Normal) H Microbiology Microbiology Date/Time Source Procedure Growth Status 05/04/25 13:42 Foot Right Gram Stain - Final Complete 05/04/25 13:42 Foot Right Anaerobic Culture - Final Complete 05/04/25 13:42 Aerobic Culture - Final Staphylococcus aureus Complete 05/01/25 15:46 Blood Blood Culture - Final NO GROWTH AFTER 5 DAYS OF INCUBATION. Complete Labs and/or images reviewed: Labs reviewed by me, Image(s) reviewed by me Assessment/Plan Assessment/Plan Covering For Dr. Bond Sepsis secondary to foot infection Controlled diabetes YO VMN On CKD HFrEF 40$ chornic systolic HF CAD s/p CABG alcohol use ruled out OM non healing ulcer cefepime and daptomycin Acute metabolic acidosis dementia vs delirium Continue Current management Patient is waiting for bed at [facility] Time Spent 55 minutes Plan discussed with: Patient My Orders Orders - SUHAS ELLISON MD Procedure Category Date Status Time Hydrocodone-Acet PHA 05/16/25 In Process 10/325mg Tab ([place] 14:15 Date of Service: May 17, 2025 Billing Provider: SUHAS ELLISON MD Common Visit Codes: [id number] INP/OBS CARE(HIGH) SUHAS ELLISON MD May 17, 2025 11:54
--- NOTE | 2025-05-17 23:46 | DVHPN2 ---
Progress Note - Dictate Date Seen: May 17, 2025 Medical Necessity Reason Pt with a Central, PICC or Fol: No Subjective Mr. Morales is a 64 years old ambidextrous gentleman with a history of hypertension, diabetes, dyslipidemia, coronary artery disease, he was brought to the [facility] on 05/01/2025 with a chief company of right foot wound. I have seen and examined the patient, talked to his nurse, he is doing fine, alert, oriented to person, place, he knows the year, month and date, socially appropriate New complaints Blood culture, 05/01/2025: No growth Wound culture, 05/04/2025: Staphylococcus aureus Urinalysis, 05/11/2025: No UTI WBC/HB/PLT/MCV, 05/01/2025: 15.8/446/23/91.1, 05/09/2025: 9.5/13/260/91.5 ESR, 05/02/2025: 80 BUN/CR, 05/09/2025: 40/1.41, 05/10/2025: 27/1.21 GFR, 05/09/2025: 56 HGB A1c, 05/02/2025: 9.9 NH3, 05/08/2025: <10 Vitamin B12, 05/11/25: 704 Folic acid, 05/11/2025: 13.39 TSH, 05/08/2025: 1.79 EEG, 05/11/2025: Normal CT head, 05/09/2025: No acute intracranial abnormality. Severe generalized volume loss with chronic small vessel ischemic change. MRI head, 05/11/2025: No acute intracranial abnormality seen no evidence for acute infarct [id number] brain volume MRI right foot, 05/03/2025: 1. Cellulitis and subcutaneous emphysema in the lateral forefoot deep to the 5th metatarsal bone. 2. No MR evidence of osteomyelitis in the right foot. 3. Edema in the intrinsic muscles of the foot may reflect myositis or denervation vital signs Vital Sign Date Time Temp Pulse Resp B/P (MAP) Pulse Ox O2 Delivery O2 Flow Rate FiO2 05/17/25 21:31 87 110/73 05/17/25 21:00 98.0 18 93 98.0 05/17/25 08:00 Room Air* 0 21 Total Intake and Output 05/16/25 05/16/25 05/17/25 15:00 23:00 07:00 Intake Total 290 ml 400 ml 400 ml Output Total 900 ml 500 ml Balance 290 ml -500 ml -100 ml medications Current Medications Medications Dose Ordered Sig/Amber Route Start Time Stop Time Status Last Admin Dose Admin Dextrose 50 ml UD PRN IV 05/01/25 20:45 Acetaminophen 650 mg Q6HP PRN PO 05/01/25 20:45 05/16/25 04:20 650 MG Carvedilol 3.125 mg Q12HR PO 05/01/25 22:00 05/17/25 21:31 3.125 MG Atorvastatin Calcium 10 mg HS PO 05/01/25 22:00 05/17/25 21:31 10 MG Diagnostic Test (Pha) 1 strip ACHS 05/02/25 22:00 05/17/25 21:16 1 STRIP Insulin Human Lispro AC SC 05/03/25 07:00 05/16/25 11:49 1 UNITS Insulin Glargine 12 units [facility] 05/04/25 22:00 05/17/25 21:40 12 UNITS Insulin Human Lispro 6 units AC MD 05/05/25 07:00 05/15/25 11:30 6 UNITS Ceftriaxone Sodium 50 ml @ 100 mls/hr DAILY@09 IV 05/08/25 15:00 05/17/25 09:00 100 MLS/HR Lactulose 15 ml BID PO 05/09/25 10:00 05/16/25 21:25 15 ML Enoxaparin Sodium 40 mg DAILY SC 05/09/25 10:00 05/17/25 09:01 40 MG Olanzapine 10 mg DAILY PO 05/09/25 10:00 05/17/25 08:59 10 MG Thiamine HCl 100 mg DAILY IV 05/10/25 10:00 05/17/25 09:00 100 MG Haloperidol Lactate 2.5 mg Q8HP PRN IM 05/09/25 16:30 Sodium Chloride 10 ml QSHIFT@, IV 05/12/25 22:00 05/17/25 21:21 10 ML Acetaminophen/ Hydrocodone Bitart 1 tab Q6HP PRN PO 05/16/25 14:15 05/17/25 08:59 1 TAB objective General: the patient is well developed and nourished. No acute distress. MUSCULOSKELETAL EXAM: Skin of the distal lower extremities is dark, thin. Dressing of the right foot is dry. No tenderness to palpation in the neck MENTAL STATUS: See subjective SPEECH, LANGUAGE, HIGHER CORTICAL FUNCTION: no aphasia or dysathria. CRANIAL NERVES: Pupils are equal, round and reactive. EOMs full and conjugate. No nystagmus. Facial sensation intact in all three divisions bilaterally. Mandibular strength intact. Facial muscles symmetrical and strength intact. Tongue midline. No fasciculations or atrophy. SENSATION: Sensation to touch and pinprick is diminished distally in the lower extremities MOTOR: Normal tone in the upper and lower extremity. Mild intrinsic muscle atrophy in both hands. No fasciculations. No abnormal movements or posturing. Muscle strength of the major groups in the extremities is 5/5. REFLEXES: Deep tendon reflexes are symmetric, diminished in the ankles. No pathological reflexes. CEREBELLAR/COORDINATION: Finger to nose is normal bilaterally laboratory and microbiology Laboratory Tests 05/14/25 06:49 05/10/25 05:18 Test 05/14/25 06:49 Range/Units Serum Glucose 110 H 74-106 mg/dL Problem List Altered mental status with unremarkable CT head Likely the patient has metabolic encephalopathy Rule out other etiology Right foot abscess Right foot cellulitis Right foot necrotizing fasciitis ? Sepsis Diabetic polyneuropathy Alcoholism Assessment/Plan Monitoring Supportive treatment Telemetry IV antibiotics x 6 weeks Thiamine supplementation Lipitor 10 mg daily DVT prophylaxis/Lovenox Haldol for agitation Wound care Foot care Daily foot inspection Wide, soft and protect she was only Quit alcohol Address bilateral hand muscle atrophy as outpatient Willing for SNF transferring More recommendation per clinical course This medical document was created using an electronic medical record system with [employer] dictation system. Although this document has been carefully reviewed, there may still be some phonetic and typographical errors. These areas are purely typographical due to imperfections of the software programs, and do not reflect any compromise in the patient's medical care. Prognosis poor Dietary Evaluation Review Comments: 1. CCHO-60 diet 2. To support optimal wound healing, the pt should closely monitor and regulate oral intake while maintaining blood sugar levels within or near the normal range. Expected Outcomes/Goals: gradually healed wound, gradual wt loss Plan discussed with: Other DUSTY GEORGES MD May 17, 2025 23:46
[2025-05-18] VITALS (7 sets, daily range): BP systolic 104–156; BP diastolic 58–95; PULSE 82–91; RESP 16–19; TEMP 97.4–99; O2SAT 91–95
--- NOTE | 2025-05-18 14:40 | DVHPN2 ---
Assessment/Plan Assessment/Plan progress note 64 M with IDDM, CKD 3, HFrEF 40%, CAD s/p CABG, alcohol use admitted for R foot wound. seen by podiatry, debridement and colesd. will req 6 weeks of abx seen today, dc to snif, pending bed physical exam aox3 comfortable on RA clear breath sounds s1 s2 rrr abdomen soft no LE edema R foot wound, extensive cellulitis, puss seen labs ekg imaging reviewed assessment and plan IDDM uncontrolled sepsis YO VMN On CKD HFrEF 40$ chornic systolic HF CAD s/p CABG alcohol use ruled out OM non healing ulcer HAGMA dementia vs delirium basal bolus ISS IVF vanc and Zosyn dc, switch to cefepime and dapto podiatry consult MRI renal rec appreciated trend cr pain mgmt need 6 weeks abx snf follow neuro woundvac diet diabetic dvt ppx lovenox full code Plan discussed with: Patient Date of Service: May 18, 2025 Billing Provider: BHARTI MAIN MD Common Visit Codes: [id number] INP/OBS CARE(MOD) BHARTI MAIN MD May 18, 2025 14:40
[2025-05-19] VITALS (7 sets, daily range): BP systolic 120–141; BP diastolic 75–87; PULSE 85–102; RESP 16–19; TEMP 97.7–98.7; O2SAT 93–98
--- NOTE | 2025-05-19 13:24 | DVHPN2 ---
Assessment/Plan Assessment/Plan progress note 64 M with IDDM, CKD 3, HFrEF 40%, CAD s/p CABG, alcohol use admitted for R foot wound. seen by podiatry, debridement and colesd. will req 6 weeks of abx seen today, removed picc line again, discussed with family and podiatry, will c/w iv while inpatient and switch to po keflex on dc. pending snf bed physical exam aox3 comfortable on RA clear breath sounds s1 s2 rrr abdomen soft no LE edema R foot wound, extensive cellulitis, puss seen labs ekg imaging reviewed assessment and plan IDDM uncontrolled sepsis YO VMN On CKD HFrEF 40$ chornic systolic HF CAD s/p CABG alcohol use ruled out OM non healing ulcer HAGMA dementia vs delirium basal bolus ISS IVF vanc and Zosyn dc, switch to cefepime and dapto podiatry consult MRI renal rec appreciated trend cr pain mgmt need 6 weeks abx snf follow neuro woundvac diet diabetic dvt ppx lovenox full code Plan discussed with: Patient, Spouse My Orders Orders - BHARTI MAIN MD Procedure Category Date Status Time Discharge DISCHARGE 05/18/25 Transmitted 15:43 Date of Service: May 19, 2025 Billing Provider: BHARTI MAIN MD Common Visit Codes: [id number] INP/OBS CARE(HIGH) BHARTI MAIN MD May 19, 2025 13:24
[2025-05-20] VITALS (7 sets, daily range): BP systolic 109–159; BP diastolic 80–102; PULSE 73–96; RESP 17–19; TEMP 36.7; O2SAT 93–96
--- NOTE | 2025-05-20 11:12 | DVHPN2 ---
Assessment/Plan Assessment/Plan progress note 64 M with IDDM, CKD 3, HFrEF 40%, CAD s/p CABG, alcohol use admitted for R foot wound. seen by podiatry, debridement and colesd. will req 6 weeks of abx seen today, pending snf bed. patient switched to po abx. physical exam aox3 comfortable on RA clear breath sounds s1 s2 rrr abdomen soft no LE edema R foot wound, extensive cellulitis, puss seen labs ekg imaging reviewed assessment and plan IDDM uncontrolled sepsis YO VMN On CKD HFrEF 40$ chornic systolic HF CAD s/p CABG alcohol use ruled out OM non healing ulcer HAGMA dementia vs delirium basal bolus ISS IVF vanc and Zosyn dc, switch to cefepime and dapto, now on keflex podiatry consult MRI renal rec appreciated trend cr pain mgmt need 6 weeks abx now to PO snf follow neuro woundvac diet diabetic dvt ppx lovenox full code Plan discussed with: Patient My Orders Orders - BHARTI MAIN MD Procedure Category Date Status Time * [employer] Operator CONS 05/19/25 Transmitted Consult Basic Metabolic Panel LAB 05/21/25 Verified 04:00 Complete Blood Count LAB 05/21/25 Verified 04:00 Transfer Orders XFER 05/20/25 Verified 11:08 Discontinue Tele CRYSTAL 05/20/25 Verified 11:08 Date of Service: May 20, 2025 Billing Provider: BHARTI MAIN MD Common Visit Codes: [id number] INP/OBS CARE(MOD) BHARTI MAIN MD May 20, 2025 11:12
== END 2025-05-20 21:18 | DRG 710 ==
LOC: ER 13:59 → OVERFLOW 21:35 → TELE-WESTW 05-02 23:11
PROVIDERS: ADMIT Student in an Organized Health Care Education/Training Program; ATTEND Student in an Organized Health Care Education/Training Program
PROC: 0QBL0ZZ Excision of Right Tarsal, Open Approach (ICD-10-PCS; 2025-05-04)
PROC: 0QBL0ZZ Excision of Right Tarsal, Open Approach (ICD-10-PCS; principal; 2025-05-06 13:51)
PROC: 02HV33Z Insertion of Infusion Device into Superior Vena Cava, Percutaneous Approach (ICD-10-PCS; 2025-05-07)
PROC: B548ZZA Ultrasonography of Superior Vena Cava, Guidance (ICD-10-PCS; 2025-05-07)
PROC: 02HV33Z Insertion of Infusion Device into Superior Vena Cava, Percutaneous Approach (ICD-10-PCS; 2025-05-12)
PROC: B548ZZA Ultrasonography of Superior Vena Cava, Guidance (ICD-10-PCS; 2025-05-12)
DX: A41.01 Sepsis due to Methicillin susceptible Staphylococcus aureus (principal); N17.0 Acute kidney failure with tubular necrosis; M72.6 Necrotizing fasciitis; A48.0 Gas gangrene; L02.611 Cutaneous abscess of right foot; E11.22 Type 2 diabetes mellitus with diabetic chronic kidney disease; E87.1 Hypo-osmolality and hyponatremia; R65.20 Severe sepsis without septic shock; L03.115 Cellulitis of right lower limb; E11.52 Type 2 diabetes mellitus with diabetic peripheral angiopathy with gangrene; I13.0 Hypertensive heart and chronic kidney disease with heart failure and stage 1 through stage 4 chronic kidney disease, or unspecified chronic kidney disease; N18.31 Chronic kidney disease, stage 3a; F10.96 Alcohol use, unspecified with alcohol-induced persisting amnestic disorder; F03.90 Unspecified dementia, unspecified severity, without behavioral disturbance, psychotic disturbance, mood disturbance, and anxiety; E87.21 Acute metabolic acidosis; E11.621 Type 2 diabetes mellitus with foot ulcer; E11.65 Type 2 diabetes mellitus with hyperglycemia; I25.10 Atherosclerotic heart disease of native coronary artery without angina pectoris; E87.5 Hyperkalemia; E11.42 Type 2 diabetes mellitus with diabetic polyneuropathy; R74.8 Abnormal levels of other serum enzymes; E78.5 Hyperlipidemia, unspecified; M62.549 Muscle wasting and atrophy, not elsewhere classified, unspecified hand; Y90.9 Presence of alcohol in blood, level not specified; Z79.899 Other long term (current) drug therapy; Z82.49 Family history of ischemic heart disease and other diseases of the circulatory system; Z83.3 Family history of diabetes mellitus; I25.2 Old myocardial infarction; Z95.1 Presence of aortocoronary bypass graft; Z79.4 Long term (current) use of insulin; I50.22 Chronic systolic (congestive) heart failure
CPT/HCPCS: 36415; 36569; 36600; 70450; 70551; 71045; 73700; 73718; 76937; 80048; 80053; 80202; 81001; 82140; 82550; 82607; 82746; 82805; 82962; 83036; 83605; 83690; 83880; 84443; 84484; 85025; 85610; 85652; 85730; 86141; 86703; 86780; 87040; 87070; 87075; 87077; 87081; 87186; 87205; 95819; 96365; 96366; 96368; 96375; 97110; 97116; 97163; 97530; G0378; J0692; J1815; J2003; J2185; J2250; J2405; J2543; J2704; J3490